=== PATIENT | female | born 1990 | race Caucasian/White ===

== ENCOUNTER 2017-07-12 04:07 | Emergency (ER) | payer OTHER ==
--- OUTSIDE RECORDS SUMMARY | 2017-07-12 04:10 | XMS REPORT | Clinical Summary ---
:1990 Author Organization [facility] Address [address] [place] [address] Phone Care Team Providers Name Role Phone Unavailable Primary Care Provider Unavailable Allergies No Known Allergies Current Medications Prescription Sig. Disp. Refills Start Date End Date Status METHIMAZOLE ORAL Take by mouth. Active PROPRANOLOL HCL Take by mouth. Active (PROPRANOLOL ORAL) ZOLPIDEM TARTRATE Take by mouth. Active (AMBIEN ORAL) cholecalciferol, Take 1,000 Active vitamin D3, 1,000 Units by mouth unit capsule daily. MAGNESIUM CARBONATE Take by mouth. Active ORAL CHLORDIAZEPOXIDE/CL Take by mouth Active IDINIUM BR 3 (three) (CHLORDIAZEPOXIDE-C times daily. LIDINIUM ORAL) sucralfate Take 1 g by Active (CARAFATE) 1 gram mouth 3 tablet (three) times daily before meals. HYDROcodone-acetami Take 1 tablet 10 tablet 0 05/18/2017 Active nophen (NORCO by mouth every 10-325) 10-325 mg 4 (four) hours per tablet as needed. Max Daily Amount: 6 tablets ondansetron Take 1 tablet 10 tablet 0 05/18/2017 Active (ZOFRAN) 4 MG (4 mg total) tablet by mouth 3 (three) times daily as needed for Nausea. traMADol (ULTRAM) Take 1 tablet 30 tablet 0 05/17/2017 05/17/2017 Discontinued 50 mg tablet (50 mg total) by mouth every 6 (six) hours as needed for Pain. Max Daily Amount: 200 mg ondansetron Take 1 tablet 30 tablet 0 05/17/2017 05/18/2017 Discontinued (ZOFRAN) 4 MG (4 mg total) tablet by mouth 3 (three) times daily as needed for Nausea. HYDROcodone-acetami Take 1 tablet 20 tablet 0 05/17/2017 05/18/2017 Discontinued nophen (NORCO by mouth every 10-325) 10-325 mg 4 (four) hours per tablet as needed for up to 10 days. Max Daily Amount: 6 tablets HYDROcodone-acetami Take 1 tablet 30 tablet 0 05/18/2017 05/18/2017 Discontinued nophen (NORCO by mouth every 10-325) 10-325 mg 4 (four) hours per tablet as needed for up to 10 days. Max Daily Amount: 6 tablets Active Problems Problem Noted Date Acute pancreatitis 05/16/2017 Pancreatitis 05/15/2017 Epigastric pain 05/15/2017 Abnormal liver enzymes 03/27/2017 Obesity 03/27/2017 Immunity status testing 03/27/2017 Chronic abdominal pain 03/27/2017 Gastritis 03/27/2017 Encounters Date Type Specialty Care Team Description 05/15/2017 - Hospital Oncology [facility], Acute pancreatitis, 05/18/2017 Encounter MD Mellissa unspecified Reji, complication Jackie Pineda, status, unspecified MD pancreatitis type;Chronic abdominal pain;Graves disease 05/15/2017 Procedure Pass Gastroenterology 05/15/[address] [facility] Mellissa ENDOSCOPY,ULTRASOUN D 05/14/2017 Hospital Pre-Admission Testing Encounter 05/14/2017 Anesthesia Event Gastroenterology Jossie Martinez MD 04/12/2017 Abstract Hepatology Julian Machado E 04/06/2017 Abstract Hepatology Merry Peña 04/06/2017 Abstract Hepatology Merry Peña 04/06/2017 Abstract Hepatology Julian Machado E 04/04/2017 Abstract Hepatology Janel Ott MA 03/27/2017 Office Visit Hepatology Josselin Hooper Abnormal liver MD Paul enzymes (Primary Dx);Immunity status testing;Chronic abdominal pain;Class 1 obesity due to excess calories without serious comorbidity with body mass index (BMI) of 30.0 to 30.9 in adult after 07/11/2016 Family History Medical History Relation Name Comments Heart attack Father Other Father Fathers side of family (great grandmother, grandmother and grandmothers twin brother of liver failure. Do not know the cause Stroke Father High blood pressure Maternal Grandmother Thyroid disease Maternal Grandmother Cancer Paternal Grandfather Liver cancer Paternal Grandfather Other Paternal Grandfather triple bypass Relation Name Status Comments Father Maternal Grandmother Paternal Grandfather Social History Tobacco Use Types Packs/Day Years Used Date Never Smoker Smokeless Tobacco: Never Used Alcohol Use Drinks/Week oz/Week Comments Yes rarely Sex Assigned at Date Recorded Not on file Last Filed Vital Signs Vital Sign Reading Time Taken Blood Pressure 110/63 05/18/2017 7:12 AM [employer] Pulse 67 05/18/2017 7:12 AM [employer] Temperature 36.3 C (97.4 F) 05/18/2017 7:12 AM [employer] Respiratory Rate 18 05/18/2017 7:12 AM [employer] Oxygen Saturation 93% 05/18/2017 7:12 AM [employer] Inhaled Oxygen Concentration - - Weight 97.1 kg (214 lb) 05/15/2017 5:50 PM [employer] Height 170.2 cm (5' 7") 05/15/2017 5:50 PM [employer] Body Mass Index 33.52 05/15/2017 5:50 PM [employer] Plan of Treatment Not on file Procedures Procedure Name Priority Date/Time Associated Diagnosis Comments ERCP,BALLOON SWEEPING 05/15/2017 3:25 PM [employer] RUQ pain Special Needs (LINEAR SCOPE, C-ARM) PROCEDURE W/ C-ARM 05/15/2017 3:25 PM [employer] RUQ pain Special Needs (LINEAR SCOPE, C-ARM) ERCP,PAPILLOTOMY 05/15/2017 3:25 PM [employer] RUQ pain Special Needs (LINEAR SCOPE, C-ARM) UPPER ENDOSCOPY,ULTRASOUND 05/15/2017 3:25 PM [employer] RUQ pain Special Needs (LINEAR SCOPE, C-ARM) after 07/11/2016 Results Lipase (05/16/2017 10:07 AM)Only the most recent of2 resultswithin the time period is included. Component Value Ref Range Lipase 16 8 - 78 U/L Specimen Performing Laboratory Blood - Arm, [address] [address] Comprehensive metabolic panel (05/16/2017 10:07 AM)Only the most recent of2 resultswithin the time period is included. Component Value Ref Range Protein, Total 6.3 6.0 - 8.3 gm/dL Albumin 3.4 (L) 3.5 - 5.0 g/dL Alkaline Phosphatase 74 40 - 150 U/L Total Bilirubin 0.6 0.2 - 1.2 mg/dL Sodium 139 136 - 145 meq/L Potassium 3.5 3.5 - 5.1 meq/L Chloride 107 98 - 107 meq/L CO2 26 22 - 29 meq/L BUN 7 7 - 21 mg/dL Creatinine 0.69 0.57 - 1.25 mg/dL Glucose 92 70 - 105 mg/dL Calcium 8.4 8.4 - 10.2 mg/dL AST 25 5 - 34 U/L ALT 44 6 - 55 U/L EGFR 101Comment: ESTIMATED GFR IS NOT ACCURATE mL/min/1.73 sq m CREATININE CLEARANCE IN PREDICTING GLOMERULAR FILTRATION RATE. ESTIMATED GFR IS NOT APPLICABLE FOR DIALYSIS PATIENTS. Specimen Performing Laboratory Blood - Arm, [address] [address] REPORT OF PROCEDURE - ENDOSCOPY URL (05/15/2017 3:43 PM)Only the most recent of2 resultswithin the time period is included.FL ERCP (05/15/2017 3:01 PM) Specimen Performing Laboratory GE RIS Narrative FINAL REPORT ERCP. CLINICAL HISTORY: BILIARY PAIN. COMPARISON STUDY: None. FINDINGS: Five fluoroscopically acquired images from an ERCP are submitted for interpretation. There has been retrograde cannulation and injection of contrast into the CBD. Cholecystectomy clips are seen. An intraoperative verbal report was not requested. Please refer to the gastroenterology notes for further discussion. Fluoroscopy was not performed by the undersigned. Fluoroscopy time: 23 seconds. Five images. Signed: Tiago Woodson MD Report Verified Date/Time:05/15/2017 15:44:29 Reading Location: [address] Radiology Reading Room Procedure Note Interface, External Ris In - 05/15/2017 3:46 PM [employer] FINAL REPORT ERCP. CLINICAL HISTORY: BILIARY PAIN. COMPARISON STUDY: None. FINDINGS: Five fluoroscopically acquired images from an ERCP are submitted for interpretation. There has been retrograde cannulation and injection of contrast into the CBD. Cholecystectomy clips are seen. An intraoperative verbal report was not requested. Please refer to the gastroenterology notes for further discussion. Fluoroscopy was not performed by the undersigned. Fluoroscopy time: 23 seconds. Five images. Signed: Tiago Woodson MD Report Verified Date/Time: 05/15/2017 15:44:29 Reading Location: [address] Radiology Reading Room , urine (05/15/2017 12:59 PM) Component Value Ref Range Test Urine, POC Negative Control line present?, POC Yes Background clear?, POC Yes UPT Cassette Lot #, POC [id number] UPT Cassette Expiration Date, POC 01/06/2019 Specimen Performing Laboratory Urine Hepatitis A Antibody, IgG ([facility] Only) (03/27/2017 4:29 PM) Component Value Ref Range Hep A IgG Nonreactive Nonreactive Specimen Performing Laboratory Blood [address] [address] CBC with platelet count + automated diff (03/27/2017 4:29 PM) Component Value Ref Range WBC 8.6 3.5 - 10.5 K/L RBC 4.39 3.93 - 5.22 M/L Hemoglobin 13.4 11.2 - 15.7 GM/DL Hematocrit 40.1 34.1 - 44.9 % MCV 91.3 79.4 - 94.8 fL MCH 30.5 25.6 - 32.2 pg MCHC 33.4 32.2 - 35.5 GM/DL RDW 12.4 11.7 - 14.4 % Platelets 314 150 - 450 K/CU MM MPV 10.3 9.4 - 12.3 fL nRBC 0 0 - 0 /100 WBC % Neutros 44 % % Lymphs 42 % % Monos 9 % % Eos 4 % % Baso 1 % # Neutros 3.73 1.56 - 6.13 K/L # Lymphs 3.57 1.18 - 3.74 K/L # Monos 0.77 (H) 0.24 - 0.36 K/L # Eos 0.32 0.04 - 0.36 K/L # Baso 0.06 0.01 - 0.08 K/L Immature Granulocytes-Relative 1 0 - 1 % Specimen Performing Laboratory Blood [address] [address] Actin (Smooth Muscle) Antibody, IgG (03/27/2017 4:29 PM) Component Value Ref Range Anti-Smooth Muscle Ab <20 See Note: U Comment: Reference Range: <20 NEGATIVE > OR=20 POSITIVE Antibodies recognizing actin are the main component of smooth muscle antibodies associated with autoimmune liver disease. Actin antibodies are found in approximately 75% of patients with autoimmune hepatitis (AIH) type 1, approximately 65% of patients with autoimmune cholangitis, approximately 30% of patients with primary biliary cirrhosis, and approximately 2% of healthy people. High values are closely correlated with AIH type 1. Specimen Performing Laboratory Blood [facility] [address] [address] Narrative Performing Lab [facility] [address] [address] Ashley Rueda MD Hepatitis B surface antibody (03/27/2017 4:29 PM) Component Value Ref Range Hep B S Ab 678.3 (H) <8.0 mIU/mL Specimen Performing Laboratory Blood [address] [address] Pro-time/INR (03/27/2017 4:29 PM) Component Value Ref Range Protime 12.2 11.7 - 14.7 seconds INR 0.9 <=5.9 Specimen Performing Laboratory Blood [address] [address] Narrative RECOMMENDED COUMADIN/WARFARIN INR THERAPY RANGES STANDARD DOSE: 2.0 - 3.0 Includes: PROPHYLAXIS for venous thrombosis, systemic embolization; TREATMENT for venous thrombosis and/or pulmonary embolus. HIGH RISK: Target INR is 2.5-3.5 for patients with mechanical heart valves. CBC with platelet count + automated diff (03/27/2017 4:29 PM) Specimen Performing Laboratory Blood Narrative The following orders were created for panel order CBC with platelet count + automated diff. Procedure Abnormality Status --------- ------ CBC with platelet count ...[[id number]]AbnormalFinal result Please view results for these tests on the individual orders. Anti-Nuclear Antibody (ARIC) (03/27/2017 4:29 PM) Component Value Ref Range ARIC Negative Negative Specimen Performing Laboratory Blood [address] [place] [address] Immunoglobulin G (IgG) (03/27/2017 4:29 PM) Component Value Ref Range IgG 1397 540 - 1822 mg/dL Specimen Performing Laboratory Blood [address] [address] Hepatic function panel (03/27/2017 4:29 PM) Component Value Ref Range Protein, Total 7.7 6.0 - 8.3 gm/dL Albumin 4.1 3.5 - 5.0 g/dL Total Bilirubin 0.3 0.2 - 1.2 mg/dL Bilirubin, Direct 0.1 0.1 - 0.5 mg/dL Alkaline Phosphatase 94 40 - 150 U/L AST 24 5 - 34 U/L ALT 43 6 - 55 U/L Specimen Performing Laboratory Blood [address] [address] Basic Metabolic Panel (03/27/2017 4:29 PM) Component Value Ref Range Sodium 138 136 - 145 meq/L Potassium 3.5 3.5 - 5.1 meq/L Chloride 105 98 - 107 meq/L CO2 25 22 - 29 meq/L BUN 13 7 - 21 mg/dL Creatinine 0.77 0.57 - 1.25 mg/dL Glucose 95 70 - 105 mg/dL Calcium 9.5 8.4 - 10.2 mg/dL EGFR 89Comment: ESTIMATED GFR IS NOT ACCURATE mL/min/1.73 sq m CREATININE CLEARANCE IN PREDICTING GLOMERULAR FILTRATION RATE. ESTIMATED GFR IS NOT APPLICABLE FOR DIALYSIS PATIENTS. Specimen Performing Laboratory Blood [address] [address] Mitochondria M2 Antibody (IgG) (03/27/2017 4:26 PM) Component Value Ref Range Mitochondria M2 Ab <20.0 See Note: U Comment: Reference Range: NEGATIVE:< OR=20.0 EQUIVOCAL: 20.1-24.9 POSITIVE:> OR=25.0 Specimen Performing Laboratory Blood [facility] [address] [address] Narrative Performing Lab [facility] [address] [address] Ashley Rueda MD after 07/11/2016
--- OUTSIDE RECORDS SUMMARY | 2017-07-12 04:10 | XMS REPORT ---
:1990 Author Organization [facility] Address [facility] [place] [address] Care Team Providers Name Role Phone IVANIATRE SKELTON Unavailable Unavailable VIDAL BURT Unavailable Unavailable Problems This patient has no known problems. Allergies, Adverse Reactions, Alerts This patient has no known allergies or adverse reactions. Medications This patient has no known medications. Results Test Description Test Time Test Comments Text Results Atomic Results Result Comments LIPASE 2017-05-16 10:51:00 Test Item Value Reference Range Comments LIPASE (BEAKER) (test sefq=970) 16 U/L 8-78 COMPREHENSIVE METABOLIC [id number] 10:51:00 Test Item Value Reference Range Comments TOTAL PROTEIN (BEAKER) 6.3 gm/dL 6.0-8.3 (test dddn=921) ALBUMIN (BEAKER) (test 3.4 g/dL 3.5-5.0 zmdc=3240) ALKALINE PHOSPHATASE 74 U/L 40-150 (BEAKER) (test yrvu=805) BILIRUBIN TOTAL (BEAKER) 0.6 mg/dL 0.2-1.2 (test dpcj=831) SODIUM (BEAKER) (test 139 meq/L 136-145 xmfo=686) POTASSIUM (BEAKER) (test 3.5 meq/L 3.5-5.1 zuot=560) CHLORIDE (BEAKER) (test 107 meq/L 98-107 bixw=377) CO2 (BEAKER) (test 26 meq/L 22-29 bzlm=888) BLOOD UREA NITROGEN 7 mg/dL 7-21 (BEAKER) (test vsgq=318) CREATININE (BEAKER) (test 0.69 mg/dL 0.57-1.25 pkst=418) GLUCOSE RANDOM (BEAKER) 92 mg/dL 70-105 (test qmul=857) CALCIUM (BEAKER) (test 8.4 mg/dL 8.4-10.2 rspg=814) AST (SGOT) (BEAKER) (test 25 U/L 5-34 enct=953) ALT (SGPT) (BEAKER) (test 44 U/L 6-55 itxg=515) EGFR (BEAKER) (test 101 mL/min/1.73 sq ESTIMATED GFR IS NOT ggwo=9044) m ACCURATE CREATININE CLEARANCE IN PREDICTING GLOMERULAR FILTRATION RATE. ESTIMATED GFR IS NOT APPLICABLE FOR DIALYSIS PATIENTS. [id number] 19:35:00 Test Item Value Reference Range Comments LIPASE (BEAKER) (test goli=220) 233 U/L 8-78 COMPREHENSIVE METABOLIC [id number] 19:35:00 Test Item Value Reference Range Comments TOTAL PROTEIN (BEAKER) 6.6 gm/dL 6.0-8.3 (test uctq=860) ALBUMIN (BEAKER) (test 3.6 g/dL 3.5-5.0 fvlu=7903) ALKALINE PHOSPHATASE 82 U/L 40-150 (BEAKER) (test oguq=231) BILIRUBIN TOTAL (BEAKER) 0.4 mg/dL 0.2-1.2 (test kmno=240) SODIUM (BEAKER) (test 136 meq/L 136-145 ujte=835) POTASSIUM (BEAKER) (test 4.0 meq/L 3.5-5.1 zesu=754) CHLORIDE (BEAKER) (test 105 meq/L 98-107 vedq=669) CO2 (BEAKER) (test 27 meq/L 22-29 uhvo=093) BLOOD UREA NITROGEN 11 mg/dL 7-21 (BEAKER) (test qzxe=422) CREATININE (BEAKER) (test 0.76 mg/dL 0.57-1.25 pxzp=952) GLUCOSE RANDOM (BEAKER) 109 mg/dL 70-105 (test mquy=564) CALCIUM (BEAKER) (test 9.0 mg/dL 8.4-10.2 ihdl=326) AST (SGOT) (BEAKER) (test 30 U/L 5-34 cfio=086) ALT (SGPT) (BEAKER) (test 47 U/L 6-55 ygrn=795) EGFR (BEAKER) (test 90 mL/min/1.73 sq m ESTIMATED GFR IS NOT pwhn=6673) ACCURATE CREATININE CLEARANCE IN PREDICTING GLOMERULAR FILTRATION RATE. ESTIMATED GFR IS NOT APPLICABLE FOR DIALYSIS PATIENTS. [place], [id number] 15:44:00Referring: Dr. Duran Thomas INTRA OP IMAGING Reason for exam:->BILIARY PAINFINAL REPORT ERCP. CLINICAL HISTORY: BILIARY PAIN. COMPARISON STUDY: None. FINDINGS: Five fluoroscopically acquired images from an ERCP are submitted for interpretation. There has been retrograde cannulation and injection of contrast into the CBD. Cholecystectomy clips are seen.An intraoperative verbal report was not requested. Please refer to the gastroenterology notes for further discussion. Fluoroscopy was not performed by the undersigned. Fluoroscopy time: 23 seconds. Five images. Signed: Tiago Woodson MDReport Verified Date/Time: 05/15/2017 15 :44:29 Reading Location:[address] Radiology Reading Room ANTI- NUCLEAR ANTIBODY (ARIC)2017-03-28 10:37:00 Test Item Value Reference Range Comments ANTI-NUCLEAR ANTIBODY (ARIC) (BEAKER) (test Negative Negative zrqi=058) HEPATITIS B SURFACE [id number] 18:33:00 Test Item Value Reference Range Comments HEPATITIS B SURFACE ANTIBODY (BEAKER) (test 678.3 mIU/mL <8.0 ibbn=927) HEPATITIS A ANTIBODY, [id number] 18:33:00 Test Item Value Reference Range Comments HEPATITIS A IGG ANTIBODY (BEAKER) (test Nonreactive Nonreactive sxae=0501) IMMUNOGLOBULIN G (IGG)2017-03-27 18:04:00 Test Item Value Reference Range Comments IMMUNOGLOBULIN G (IGG) (BEAKER) (test qofm=024) 1397 mg/dL 540-1822 HEPATIC FUNCTION [id number] 17:26:00 Test Item Value Reference Range Comments TOTAL PROTEIN (BEAKER) (test azym=930) 7.7 gm/dL 6.0-8.3 ALBUMIN (BEAKER) (test nzgc=0813) 4.1 g/dL 3.5-5.0 BILIRUBIN TOTAL (BEAKER) (test hjvm=105) 0.3 mg/dL 0.2-1.2 BILIRUBIN DIRECT (BEAKER) (test rcty=380) 0.1 mg/dL 0.1-0.5 ALKALINE PHOSPHATASE (BEAKER) (test movm=665) 94 U/L 40-150 AST (SGOT) (BEAKER) (test vfrv=089) 24 U/L 5-34 ALT (SGPT) (BEAKER) (test mnvb=577) 43 U/L 6-55 BASIC METABOLIC [id number] 17:26:00 Test Item Value Reference Range Comments SODIUM (BEAKER) (test 138 meq/L 136-145 pmjv=456) POTASSIUM (BEAKER) (test 3.5 meq/L 3.5-5.1 iulh=124) CHLORIDE (BEAKER) (test 105 meq/L 98-107 phqu=707) CO2 (BEAKER) (test 25 meq/L 22-29 phys=175) BLOOD UREA NITROGEN 13 mg/dL 7-21 (BEAKER) (test ledt=729) CREATININE (BEAKER) (test 0.77 mg/dL 0.57-1.25 ttxx=578) GLUCOSE RANDOM (BEAKER) 95 mg/dL 70-105 (test hjjg=466) CALCIUM (BEAKER) (test 9.5 mg/dL 8.4-10.2 mcxu=368) EGFR (BEAKER) (test 89 mL/min/1.73 sq m ESTIMATED GFR IS NOT mtnd=3754) ACCURATE CREATININE CLEARANCE IN PREDICTING GLOMERULAR FILTRATION RATE. ESTIMATED GFR IS NOT APPLICABLE FOR DIALYSIS PATIENTS. PROTHROMBIN [id number] 17:10:00 Test Item Value Reference Range Comments PROTIME (BEAKER) (test boxj=036) 12.2 seconds 11.7-14.7 INR (BEAKER) (test thrb=362) 0.9 <=5.9 RECOMMENDED COUMADIN/WARFARIN INR THERAPY RANGESSTANDARD DOSE: 2.0 - 3.0 Includes: PROPHYLAXIS forvenous thrombosis, systemic embolization; TREATMENT for venous thrombosis and/or pulmonary embolus.HIGH RISK: Target INR is 2.5-3.5 for patients with mechanical heart valves.CBC W/PLT COUNT & AUTO [id number] 17:01:00 Test Item Value Reference Range Comments WHITE BLOOD CELL COUNT (BEAKER) (test crjt=187) 8.6 K/ L 3.5-10.5 RED BLOOD CELL COUNT (BEAKER) (test pxmb=743) 4.39 M/ L 3.93-5.22 HEMOGLOBIN (BEAKER) (test ivty=987) 13.4 GM/DL 11.2-15.7 HEMATOCRIT (BEAKER) (test yhcj=535) 40.1 % 34.1-44.9 MEAN CORPUSCULAR VOLUME (BEAKER) (test nxak=179) 91.3 fL 79.4-94.8 MEAN CORPUSCULAR HEMOGLOBIN (BEAKER) (test 30.5 pg 25.6-32.2 tpro=384) MEAN CORPUSCULAR HEMOGLOBIN CONC (BEAKER) (test 33.4 GM/DL 32.2-35.5 zhft=861) RED CELL DISTRIBUTION WIDTH (BEAKER) (test 12.4 % 11.7-14.4 eawd=111) PLATELET COUNT (BEAKER) (test aklh=789) 314 K/CU MM 150-450 MEAN PLATELET VOLUME (BEAKER) (test vwoc=923) 10.3 fL 9.4-12.3 NUCLEATED RED BLOOD CELLS (BEAKER) (test 0 /100 WBC 0-0 zlia=178) NEUTROPHILS RELATIVE PERCENT (BEAKER) (test 44 % taeg=009) LYMPHOCYTES RELATIVE PERCENT (BEAKER) (test 42 % zboy=510) MONOCYTES RELATIVE PERCENT (BEAKER) (test 9 % grac=259) EOSINOPHILS RELATIVE PERCENT (BEAKER) (test 4 % mecn=325) BASOPHILS RELATIVE PERCENT (BEAKER) (test 1 % jslp=251) NEUTROPHILS ABSOLUTE COUNT (BEAKER) (test 3.73 K/ L 1.56-6.13 talk=887) LYMPHOCYTES ABSOLUTE COUNT (BEAKER) (test 3.57 K/ L 1.18-3.74 olqv=880) MONOCYTES ABSOLUTE COUNT (BEAKER) (test 0.77 K/ L 0.24-0.36 jsbz=926) EOSINOPHILS ABSOLUTE COUNT (BEAKER) (test 0.32 K/ L 0.04-0.36 qkxb=406) BASOPHILS ABSOLUTE COUNT (BEAKER) (test 0.06 K/ L 0.01-0.08 ihpf=127) IMMATURE GRANULOCYTES-RELATIVE PERCENT (BEAKER) 1 % 0-1 (test ygct=2948)
[2017-07-12] MEDS ORDERED: DIPHENHYDRAMINE 50 MG/ML VIAL ONE (04:45)
[2017-07-12] MEDS ORDERED: KETOROLAC 30 MG/ML INJ ONE (04:45)
[2017-07-12] MEDS ORDERED: NA CHLORIDE 0.9% 1,000 ML ONE (04:45)
[2017-07-12] MEDS ORDERED: METOCLOPRAMIDE 10 MG/2mL INJ ONE (04:45)
[2017-07-12] MEDS ORDERED: DEXAMETHASONE 10 MG/ML VIAL ONE (04:46)
--- NOTE | 2017-07-12 04:49 | ER ---
Nurse's Notes [facility] Name: Rubi Farfan Age: 27 yrs Sex: Female : 1990 Arrival Date: 07/12/2017 Time: 04:09 Bed 6 Private MD: Terry Parra B Diagnosis: Migraine Presentation: 07/12 04:23 Presenting complaint: Patient states: she is having a migraine x 3 days has not been bb able to sleep saw the neurologist yesterday at approx 1200 and was given imitrex and nerve blocks but has not gotten any relief. Transition of care: patient was not received from another setting of care. Onset of symptoms was July 09, 2017. Care prior to arrival: None. 04:23 Method Of Arrival: Ambulatory bb 04:23 Acuity: HUAN 4 bb Triage Assessment: 04:29 Headache History: The patient has had previous headaches and this one is similar to bb previous episodes. General: Appears in no apparent distress. uncomfortable, Behavior is calm, cooperative. Pain: Complains of pain in top of head Pain currently is 7 out of 10 on a pain scale. Pain began 2-3 days ago. Also complains of nausea, sleeplessness. Neuro: Level of Consciousness is awake, alert, obeys commands, Oriented to person, place, time, situation, Speech is normal, Facial symmetry appears normal. Cardiovascular: No deficits noted. Respiratory: Respiratory effort is even, unlabored. GI: Reports nausea. Derm: Skin is pink, warm \T\ dry. Musculoskeletal: Circulation, motion, and sensation intact. 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 - Social history:: Smoking status: unknown. - Family history:: not pertinent. - Hospitalizations: : No recent hospitalization is reported. Screenin:31 Abuse screen: Denies threats or abuse. Nutritional screening: No deficits noted. bb Tuberculosis screening: No symptoms or risk factors identified. Fall Risk None identified. Assessment: 04:31 Reassessment: No changes from previously documented assessment. see triage assessment. bb 04:46 Reassessment: Patient reports headache pain has decreased. Patient states feeling ea better. Patient states symptoms have improved. 04:57 Reassessment: Patient and/or family updated on plan of care and expected duration. Pain ea level reassessed. Patient is alert, oriented x 3, equal unlabored respirations, skin warm/dry/pink. Discharge instructions given to patient, verbalized the understanding of instruction. Awaiting for IV fluids to complete. Patient states feeling better. Patient states symptoms have improved. Vital Signs: 04:29 BP 136 / 98; Pulse 85; Resp 18 S; Temp 97.8(O); Pulse Ox 100% on R/A; Weight 86.18 kg bb (R); Height 5 ft. 7 in. (170.18 cm) (R); Pain 7/10; 04:29 Body Mass Index 29.76 (86.18 kg, 170.18 cm) bb [place] Coma Score: 04:48 Eye Response: spontaneous(4). Verbal Response: oriented(5). Motor Response: obeys rn commands(6). Total: 15. ED Course: 04:09 Patient arrived in ED. am2 04:09 Terry Parra MD is Private Physician. am2 04:16 Jonathan Fuentes MD is Attending Physician. rn 04:22 Evelin Kumar RN is Primary Nurse. bb 04:24 Triage completed. bb 04:29 Arm band placed on Patient placed in an exam room, on a stretcher, on pulse oximetry. bb 04:30 Inserted saline lock: 20 gauge in right antecubital area, using aseptic technique. oe 04:31 Patient has correct armband on for positive identification. Bed in low position. Call bb light in reach. Side rails up X 1. Pulse ox on. NIBP on. 04:58 No provider procedures requiring assistance completed. ea 05:08 IV discontinued, intact, bleeding controlled, No redness/swelling at site. Pressure ea dressing applied. Administered Medications: 04:25 Drug: NS 0.9% 1000 ml Route: IV; Rate: 1000 ml; Site: right antecubital; ea 05:05 Follow up: Response: No adverse reaction; IV Status: Completed infusion ea 04:26 Drug: Decadron - Dexamethasone 10 mg Route: IVP; Site: right antecubital; ea 04:45 Follow up: Response: No adverse reaction; Marked relief of symptoms ea 04:28 Drug: TORadol 30 mg Route: IVP; Site: right antecubital; ea 04:45 Follow up: Response: No adverse reaction; Marked relief of symptoms; Pain is decreased ea 04:36 Drug: Reglan 10 mg Route: IVP; Site: right antecubital; ea 04:45 Follow up: Response: No adverse reaction; Marked relief of symptoms ea 04:37 Drug: Benadryl 25 mg Route: IVP; Site: right antecubital; ea 04:45 Follow up: Response: No adverse reaction; Marked relief of symptoms ea Outcome: 04:49 Discharge ordered by MD. rn 04:59 Discharge instructions given to patient, Instructed on discharge instructions, follow ea up and referral plans. Demonstrated understanding of instructions, follow-up care. 05:09 Discharged to home ambulatory. ea 05:09 Condition: improved 05:09 Patient left the ED. ea Signatures: Evelin Kumar RN RN bb Nieto, Roman, MD MD rn Espinosa, Orlando oe Moreno, Amanda am2 Antunez, Elena, RN RN ea Corrections: (The following items were deleted from the chart) 05:03 04:57 Reassessment: Patient and/or family updated on plan of care and expected ea duration. Pain level reassessed. Patient is alert, oriented x 3, equal unlabored respirations, skin warm/dry/pink. Discharge instructions given to patient, verbalized the understanding of instruction Patient states feeling better. Patient states symptoms have improved. ea
--- NOTE | 2017-07-12 04:49 | EDPHYS ---
Physician Documentation [facility] Name: Rubi Farfan Age: 27 yrs Sex: Female : 1990 Arrival Date: 07/12/2017 Time: 04:09 Bed 6 Private MD: Terry Parra B ED Physician Jonathan Fuentes HPI: 07/12 04:22 This 27 yrs old Female presents to ER via Unassigned with complaints of rn Headache. 04:22 The patient complains of pain to the top of head. The patient describes the headache as rn aching. Onset: The symptoms/episode began/occurred 3 day(s) ago. Associated signs and symptoms: Pertinent positives: nausea, Photophobia Pertinent negatives: fever, neck stiffness, rash, vision changes, vision loss, weakness, vertigo. Severity of symptoms: At its worst the pain was moderate, "similar to past headaches". The patient has experienced similar episodes in the past. Reports hx of migraines, this migraine typical of her other migraines, states got nerve block and imitrex by her neurologist yesterday, not helping, not , has essure device. No fever. . 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 - Social history:: Smoking status: unknown. - Family history:: not pertinent. - Hospitalizations: : No recent hospitalization is reported. ROS: 04:22 Constitutional: Negative for fever, chills, and weight loss, Eyes: Negative for injury, rn pain, redness, and discharge, Cardiovascular: Negative for chest pain, palpitations, and edema, Respiratory: Negative for shortness of breath, cough, wheezing, and pleuritic chest pain, Abdomen/GI: Negative for abdominal pain, diarrhea, and constipation, MS/Extremity: Negative for injury and deformity, Skin: Negative for injury, rash, and discoloration, Neuro: Negative for weakness, numbness, tingling, and seizure. Exam: 04:22 Constitutional: This is a well developed, well nourished patient who is awake, alert, rn and in no acute distress. Head/Face: Normocephalic, atraumatic. Eyes: Pupils equal round and reactive to light, extra-ocular motions intact. Lids and lashes normal. Conjunctiva and sclera are non-icteric and not injected. Cornea within normal limits. Periorbital areas with no swelling, redness, or edema. Neck: Trachea midline, no thyromegaly or masses palpated, and no cervical lymphadenopathy. Supple, full range of motion without nuchal rigidity, or vertebral point tenderness. No Meningismus. Skin: Warm, dry, no evidence of cellulitis. MS/ Extremity: Pulses equal, no cyanosis. Neurovascular intact. Full, normal range of motion. Equal circumference. Neuro: Awake and alert, GCS 15, oriented to person, place, time, and situation. Cranial nerves II-XII grossly intact. Motor strength 5/5 in all extremities. Sensory grossly intact. Cerebellar exam normal. Normal gait. Vital Signs: 04:29 BP 136 / 98; Pulse 85; Resp 18 S; Temp 97.8(O); Pulse Ox 100% on R/A; Weight 86.18 kg bb (R); Height 5 ft. 7 in. (170.18 cm) (R); Pain 7/10; 04:29 Body Mass Index 29.76 (86.18 kg, 170.18 cm) bb [place] Coma Score: 04:48 Eye Response: spontaneous(4). Verbal Response: oriented(5). Motor Response: obeys rn commands(6). Total: 15. MDM: 04:16 Patient medically screened. rn 04:24 ED course: Pt states doesn't have ride home. rn 04:48 Differential diagnosis: hypertensive headache, migraine, tension headache. Data rn reviewed: vital signs, nurses notes, and as a result, I will discharge patient. Counseling: I had a detailed discussion with the patient and/or guardian regarding: the historical points, exam findings, and any diagnostic results supporting the discharge/admit diagnosis, the need for outpatient follow up, to return to the emergency department if symptoms worsen or persist or if there are any questions or concerns that arise at home. Special discussion: I discussed with the patient/guardian in detail that at this point there is no indication for admission to the hospital. It is understood, however, that if the symptoms persist or worsen the patient needs to return immediately for re-evaluation. 07/12 04:21 Order name: IV Start; Complete Time: 04:39 rn Administered Medications: 04:25 Drug: NS 0.9% 1000 ml Route: IV; Rate: 1000 ml; Site: right antecubital; ea 05:05 Follow up: Response: No adverse reaction; IV Status: Completed infusion ea 04:26 Drug: Decadron - Dexamethasone 10 mg Route: IVP; Site: right antecubital; ea 04:45 Follow up: Response: No adverse reaction; Marked relief of symptoms ea 04:28 Drug: TORadol 30 mg Route: IVP; Site: right antecubital; ea 04:45 Follow up: Response: No adverse reaction; Marked relief of symptoms; Pain is decreased ea 04:36 Drug: Reglan 10 mg Route: IVP; Site: right antecubital; ea 04:45 Follow up: Response: No adverse reaction; Marked relief of symptoms ea 04:37 Drug: Benadryl 25 mg Route: IVP; Site: right antecubital; ea 04:45 Follow up: Response: No adverse reaction; Marked relief of symptoms ea Disposition: 07/12/17 04:49 Discharged to Home. Impression: Migraine. - Condition is Stable. - Discharge Instructions: Migraine Headache. - Medication Reconciliation Form, Thank You Letter, Antibiotic Education, Prescription Opioid Use form. - Follow up: Private Physician; When: As needed; Reason: Recheck today's complaints, Re-evaluation by your physician. - Problem is an ongoing problem. - Symptoms have improved. Signatures: Evelin Kumar RN RN bb Nieto, Roman, MD MD rn Antunez, Elena, RN RN ea
[2017-07-12 05:31] VITALS: BP 136/98; TEMP 97.8; O2SAT 100
== END 2017-07-12 05:09 | disposition home or self-care (01) ==
LOC: ER 04:07
DX: G43.909 Migraine, unspecified, not intractable, without status migrainosus (principal); I10 Essential (primary) hypertension; E05.90 Thyrotoxicosis, unspecified without thyrotoxic crisis or storm
CPT/HCPCS: 96361; 96374; 96375; 99283; J1100; J2765; J7030

== ENCOUNTER 2018-01-14 10:57 | Inpatient (IN) | payer OTHER ==
--- OUTSIDE RECORDS SUMMARY | 2018-01-14 11:00 | XMS REPORT | Clinical Summary ---
:1990 Author Organization [facility] Address [address] [place] [address] Phone Care Team Providers Name Role Phone [...] Care Team Description 05/15/2017 - Hospital Oncology Mellissa Calix Acute pancreatitis, 05/18/2017 Encounter Fifi Burton MD unspecified Reji, complication Jackie Pineda, status, unspecified MD pancreatitis type;Chronic abdominal pain;Graves disease 05/15/2017 Procedure Pass Gastroenterology 05/15/2017 Surgery Gastroenterology Mellissa Calix UPPER Fifi Burton MD ENDOSCOPY,ULTRASOUN D 05/14/2017 Hospital Pre-Admission Testing Encounter [...] of 30.0 to 30.9 in adult after 01/13/2017 Family History Medical History Relation Name Comments [...] Taken Blood Pressure 110/63 05/18/2017 7:12 AM VICE PRESIDENT QUALITY Pulse 67 05/18/2017 7:12 AM VICE PRESIDENT QUALITY Temperature 36.3 C (97.4 F) 05/18/2017 7:12 AM VICE PRESIDENT QUALITY Respiratory Rate 18 05/18/2017 7:12 AM VICE PRESIDENT QUALITY Oxygen Saturation 93% 05/18/2017 7:12 AM VICE PRESIDENT QUALITY Inhaled Oxygen Concentration - - Weight 97.1 kg (214 lb) 05/15/2017 5:50 PM VICE PRESIDENT QUALITY Height 170.2 cm (5' 7") 05/15/2017 5:50 PM VICE PRESIDENT QUALITY Body Mass Index 33.52 05/15/2017 5:50 PM VICE PRESIDENT QUALITY Plan of Treatment Not on file Procedures Procedure Name Priority Date/Time Associated Diagnosis Comments ERCP,BALLOON SWEEPING 05/15/2017 3:25 PM VICE PRESIDENT QUALITY RUQ pain Special Needs (LINEAR SCOPE, C-ARM) PROCEDURE W/ C-ARM 05/15/2017 3:25 PM VICE PRESIDENT QUALITY RUQ pain Special Needs (LINEAR SCOPE, C-ARM) ERCP,PAPILLOTOMY 05/15/2017 3:25 PM VICE PRESIDENT QUALITY RUQ pain Special Needs (LINEAR SCOPE, C-ARM) UPPER ENDOSCOPY,ULTRASOUND 05/15/2017 3:25 PM VICE PRESIDENT QUALITY RUQ pain Special Needs (LINEAR SCOPE, C-ARM) after 01/13/2017 Results Lipase (05/16/2017 10:07 AM)Only the most recent of2 resultswithin the time period is included. Component Value Ref Range Lipase 16 8 - 78 U/L Specimen Performing Laboratory Blood - Arm, [address] [address] Comprehensive metabolic panel (05/16/2017 10:07 AM)Only the [...] PATIENTS. Specimen Performing Laboratory Blood - Arm, [place] [address] REPORT OF PROCEDURE - ENDOSCOPY URL (05/15/2017 [...] MD Report Verified Date/Time:05/15/2017 15:44:29 Reading Location: [address] Radiology Reading Room Procedure Note Interface, External Ris In - 05/15/2017 3:46 PM VICE PRESIDENT QUALITY FINAL REPORT ERCP. CLINICAL HISTORY: BILIARY PAIN. [...] Report Verified Date/Time: 05/15/2017 15:44:29 Reading Location: [address] Radiology Reading Room , urine (05/15/2017 12:59 PM) Component Value Ref Range Test Urine, POC Negative Control line present?, POC Yes Background clear?, POC Yes UPT Cassette Lot #, POC [id number] UPT Cassette Expiration Date, POC 01/06/2019 Specimen Performing Laboratory Urine Hepatitis A Antibody, IgG ([facility] Only) (03/27/2017 4:29 PM) Component Value Ref Range Hep A IgG Nonreactive Nonreactive Specimen Performing Laboratory Blood [address] [address] CBC with platelet count + automated diff [...] - 1 % Specimen Performing Laboratory Blood [address] [address] Actin (Smooth Muscle) Antibody, IgG (03/27/2017 4:29 [...] Specimen Performing Laboratory Blood [facility] [address] [address] Narrative Performing Lab [facility] [address] [address] Ashley Rueda MD Hepatitis B surface antibody (03/27/2017 4:29 PM) Component Value Ref Range Hep B S Ab 678.3 (H) <8.0 mIU/mL Specimen Performing Laboratory Blood [address] [address] Pro-time/INR (03/27/2017 4:29 PM) Component Value Ref Range Protime 12.2 11.7 - 14.7 seconds INR 0.9 <=5.9 Specimen Performing Laboratory Blood [address] [address] Narrative RECOMMENDED COUMADIN/WARFARIN INR THERAPY RANGES STANDARD [...] Status --------- ------ CBC with platelet count ...[[id number]]AbnormalFinal result Please view results for these tests on the individual orders. Anti-Nuclear Antibody (ARIC) (03/27/2017 4:29 PM) Component Value Ref Range ARIC Negative Negative Specimen Performing Laboratory Blood [address] [address] Immunoglobulin G (IgG) (03/27/2017 4:29 PM) Component Value Ref Range IgG 1397 540 - 1822 mg/dL Specimen Performing Laboratory Blood [address] [address] Hepatic function panel (03/27/2017 4:29 PM) Component Value Ref Range Protein, Total 7.7 6.0 - 8.3 gm/dL Albumin 4.1 3.5 - 5.0 g/dL Total Bilirubin 0.3 0.2 - 1.2 mg/dL Bilirubin, Direct 0.1 0.1 - 0.5 mg/dL Alkaline Phosphatase 94 40 - 150 U/L AST 24 5 - 34 U/L ALT 43 6 - 55 U/L Specimen Performing Laboratory Blood [address] [address] Basic Metabolic Panel (03/27/2017 4:29 PM) Component [...] FOR DIALYSIS PATIENTS. Specimen Performing Laboratory Blood [address] [address] Mitochondria M2 Antibody (IgG) (03/27/2017 4:26 PM) Component Value Ref Range Mitochondria M2 Ab <20.0 See Note: U Comment: Reference Range: NEGATIVE:< OR=20.0 EQUIVOCAL: 20.1-24.9 POSITIVE:> OR=25.0 Specimen Performing Laboratory Blood [facility] [address] [address] Narrative Performing Lab [facility] [address] [address] Ashley Rueda MD after 01/13/2017
--- OUTSIDE RECORDS SUMMARY | 2018-01-14 11:00 | XMS REPORT ---
:1990 [facility] Address [facility] [place] [address] Care Team Providers Name Role Phone IVANIATRE SKELTON Unavailable Unavailable TASHIA BURT Unavailable Unavailable Problems This patient has no known problems. Allergies, Adverse Reactions, Alerts This patient has no known allergies or adverse reactions. Medications This patient has no known medications. Results Test Description Test Time Test Comments Text Results Atomic Results Result Comments LIPASE 2017-05-16 10:51:00 Test Item Value Reference Range Comments LIPASE (BEAKER) (test xkok=996) 16 U/L 8-78 COMPREHENSIVE METABOLIC [id number] 10:51:00 Test Item Value Reference Range Comments TOTAL PROTEIN (BEAKER) 6.3 gm/dL 6.0-8.3 (test dwvq=291) ALBUMIN (BEAKER) (test 3.4 g/dL 3.5-5.0 ioik=3874) ALKALINE PHOSPHATASE 74 U/L 40-150 (BEAKER) (test opnt=511) BILIRUBIN TOTAL (BEAKER) 0.6 mg/dL 0.2-1.2 (test uhjd=927) SODIUM (BEAKER) (test 139 meq/L 136-145 nrkc=195) POTASSIUM (BEAKER) (test 3.5 meq/L 3.5-5.1 pral=867) CHLORIDE (BEAKER) (test 107 meq/L 98-107 txwr=427) CO2 (BEAKER) (test 26 meq/L 22-29 cylp=705) BLOOD UREA NITROGEN 7 mg/dL 7-21 (BEAKER) (test jhgl=461) CREATININE (BEAKER) (test 0.69 mg/dL 0.57-1.25 geuw=712) GLUCOSE RANDOM (BEAKER) 92 mg/dL 70-105 (test qbed=924) CALCIUM (BEAKER) (test 8.4 mg/dL 8.4-10.2 iedd=742) AST (SGOT) (BEAKER) (test 25 U/L 5-34 ziix=794) ALT (SGPT) (BEAKER) (test 44 U/L 6-55 kczn=998) EGFR (BEAKER) (test 101 mL/min/1.73 sq ESTIMATED GFR IS NOT ccbs=0721) m ACCURATE CREATININE CLEARANCE IN PREDICTING GLOMERULAR FILTRATION RATE. ESTIMATED GFR IS NOT APPLICABLE FOR DIALYSIS PATIENTS. [id number] 19:35:00 Test Item Value Reference Range Comments LIPASE (BEAKER) (test wydk=288) 233 U/L 8-78 COMPREHENSIVE METABOLIC [id number] 19:35:00 Test Item Value Reference Range Comments TOTAL PROTEIN (BEAKER) 6.6 gm/dL 6.0-8.3 (test qpml=338) ALBUMIN (BEAKER) (test 3.6 g/dL 3.5-5.0 riyw=0229) ALKALINE PHOSPHATASE 82 U/L 40-150 (BEAKER) (test cjcg=714) BILIRUBIN TOTAL (BEAKER) 0.4 mg/dL 0.2-1.2 (test dbnv=794) SODIUM (BEAKER) (test 136 meq/L 136-145 htmp=542) POTASSIUM (BEAKER) (test 4.0 meq/L 3.5-5.1 jmxx=274) CHLORIDE (BEAKER) (test 105 meq/L 98-107 nhjb=369) CO2 (BEAKER) (test 27 meq/L 22-29 ljwy=023) BLOOD UREA NITROGEN 11 mg/dL 7-21 (BEAKER) (test jnjj=342) CREATININE (BEAKER) (test 0.76 mg/dL 0.57-1.25 rqam=611) GLUCOSE RANDOM (BEAKER) 109 mg/dL 70-105 (test oyqe=377) CALCIUM (BEAKER) (test 9.0 mg/dL 8.4-10.2 hqnh=615) AST (SGOT) (BEAKER) (test 30 U/L 5-34 lnxy=130) ALT (SGPT) (BEAKER) (test 47 U/L 6-55 rmcj=871) EGFR (BEAKER) (test 90 mL/min/1.73 sq m ESTIMATED GFR IS NOT eydm=9622) ACCURATE CREATININE CLEARANCE IN PREDICTING GLOMERULAR FILTRATION RATE. ESTIMATED GFR IS NOT APPLICABLE FOR DIALYSIS PATIENTS. MI, [id number] 15:44:00Referring: Dr. Duran Thomas INTRA OP IMAGING [...] MDReport Verified Date/Time: 05/15/2017 15 :44:29 Reading Location:[address] Radiology Reading Room ANTI- NUCLEAR ANTIBODY (ARIC)2017-03-28 10:37:00 Test Item Value Reference Range Comments ANTI-NUCLEAR ANTIBODY (ARIC) (BEAKER) (test Negative Negative qscb=123) HEPATITIS B SURFACE [id number] 18:33:00 Test Item Value Reference Range Comments HEPATITIS B SURFACE ANTIBODY (BEAKER) (test 678.3 mIU/mL <8.0 cjte=764) HEPATITIS A ANTIBODY, [id number] 18:33:00 Test Item Value Reference Range Comments HEPATITIS A IGG ANTIBODY (BEAKER) (test Nonreactive Nonreactive aawn=3050) IMMUNOGLOBULIN G (IGG)2017-03-27 18:04:00 Test Item Value Reference Range Comments IMMUNOGLOBULIN G (IGG) (BEAKER) (test agmf=397) 1397 mg/dL 540-1822 HEPATIC FUNCTION [id number] 17:26:00 Test Item Value Reference Range Comments TOTAL PROTEIN (BEAKER) (test vkxv=098) 7.7 gm/dL 6.0-8.3 ALBUMIN (BEAKER) (test ceuf=4950) 4.1 g/dL 3.5-5.0 BILIRUBIN TOTAL (BEAKER) (test fdwl=999) 0.3 mg/dL 0.2-1.2 BILIRUBIN DIRECT (BEAKER) (test ijcd=656) 0.1 mg/dL 0.1-0.5 ALKALINE PHOSPHATASE (BEAKER) (test csht=816) 94 U/L 40-150 AST (SGOT) (BEAKER) (test uhyh=578) 24 U/L 5-34 ALT (SGPT) (BEAKER) (test pmqr=694) 43 U/L 6-55 BASIC METABOLIC [id number] 17:26:00 Test Item Value Reference Range Comments SODIUM (BEAKER) (test 138 meq/L 136-145 vril=370) POTASSIUM (BEAKER) (test 3.5 meq/L 3.5-5.1 phyd=951) CHLORIDE (BEAKER) (test 105 meq/L 98-107 sdds=772) CO2 (BEAKER) (test 25 meq/L 22-29 stzl=246) BLOOD UREA NITROGEN 13 mg/dL 7-21 (BEAKER) (test xhls=145) CREATININE (BEAKER) (test 0.77 mg/dL 0.57-1.25 vsfb=409) GLUCOSE RANDOM (BEAKER) 95 mg/dL 70-105 (test ddhn=302) CALCIUM (BEAKER) (test 9.5 mg/dL 8.4-10.2 naai=630) EGFR (BEAKER) (test 89 mL/min/1.73 sq m ESTIMATED GFR IS NOT jmcu=5134) ACCURATE CREATININE CLEARANCE IN PREDICTING GLOMERULAR FILTRATION RATE. ESTIMATED GFR IS NOT APPLICABLE FOR DIALYSIS PATIENTS. PROTHROMBIN TIME/[id number] 17:10:00 Test Item Value Reference Range Comments PROTIME (BEAKER) (test ssfk=731) 12.2 seconds 11.7-14.7 INR (BEAKER) (test bigh=387) 0.9 <=5.9 RECOMMENDED COUMADIN/WARFARIN INR THERAPY RANGESSTANDARD DOSE: 2.0 - 3.0 Includes: PROPHYLAXIS forvenous thrombosis, systemic embolization; TREATMENT for venous thrombosis and/or pulmonary embolus.HIGH RISK: Target INR is 2.5-3.5 for patients with mechanical heart valves.CBC W/PLT COUNT & AUTO [id number] 17:01:00 Test Item Value Reference Range Comments WHITE BLOOD CELL COUNT (BEAKER) (test ajeh=326) 8.6 K/ L 3.5-10.5 RED BLOOD CELL COUNT (BEAKER) (test pjja=415) 4.39 M/ L 3.93-5.22 HEMOGLOBIN (BEAKER) (test jmdb=927) 13.4 GM/DL 11.2-15.7 HEMATOCRIT (BEAKER) (test qgru=042) 40.1 % 34.1-44.9 MEAN CORPUSCULAR VOLUME (BEAKER) (test mogj=189) 91.3 fL 79.4-94.8 MEAN CORPUSCULAR HEMOGLOBIN (BEAKER) (test 30.5 pg 25.6-32.2 zobk=082) MEAN CORPUSCULAR HEMOGLOBIN CONC (BEAKER) (test 33.4 GM/DL 32.2-35.5 dmbb=932) RED CELL DISTRIBUTION WIDTH (BEAKER) (test 12.4 % 11.7-14.4 awve=722) PLATELET COUNT (BEAKER) (test izrn=301) 314 K/CU MM 150-450 MEAN PLATELET VOLUME (BEAKER) (test qyut=384) 10.3 fL 9.4-12.3 NUCLEATED RED BLOOD CELLS (BEAKER) (test 0 /100 WBC 0-0 lanz=581) NEUTROPHILS RELATIVE PERCENT (BEAKER) (test 44 % efjp=955) LYMPHOCYTES RELATIVE PERCENT (BEAKER) (test 42 % mhso=855) MONOCYTES RELATIVE PERCENT (BEAKER) (test 9 % sbjc=859) EOSINOPHILS RELATIVE PERCENT (BEAKER) (test 4 % jwru=338) BASOPHILS RELATIVE PERCENT (BEAKER) (test 1 % yshr=635) NEUTROPHILS ABSOLUTE COUNT (BEAKER) (test 3.73 K/ L 1.56-6.13 daio=212) LYMPHOCYTES ABSOLUTE COUNT (BEAKER) (test 3.57 K/ L 1.18-3.74 zvfg=991) MONOCYTES ABSOLUTE COUNT (BEAKER) (test 0.77 K/ L 0.24-0.36 lgwv=264) EOSINOPHILS ABSOLUTE COUNT (BEAKER) (test 0.32 K/ L 0.04-0.36 gmdu=586) BASOPHILS ABSOLUTE COUNT (BEAKER) (test 0.06 K/ L 0.01-0.08 gkgf=188) IMMATURE GRANULOCYTES-RELATIVE PERCENT (BEAKER) 1 % 0-1 (test vxht=1015)
[2018-01-14] MEDS ORDERED: NA CHLORIDE 0.9% 1,000 ML ONE (11:27)
[2018-01-14 11:47] LABS: Absolute Monocytes 0.8 K/uL (0.1-1.3); Absolute Neutrophil 2.6 K/uL (1.8-8.0); Basophils % 0.5 % (0-1.3); Eosinophils % 4.1 % (0-4.4); Hematocrit 39.7 % (36.0-45.0); Lymphocytes % 34.7 % (15.3-44.8); MCH 30.9 pg (27.0-35.0); MCV 86.9 fL (80-100); MPV 8.7 fL (7.6-11.3); RBC Red Blood Cell Count 4.57 M/uL (3.86-4.86)
[2018-01-14 12:03] LABS: ALT/SGPT 77 U/L (12-78); AST/SGOT 26 U/L (15-37); Albumin 3.4 g/dL (3.4-5.0); Alkaline Phosphatase 97 U/L (45-117); BUN Blood Urea Nitrogen 12 mg/dL (7-18); Bicarbonate 26 mmol/L (21-32); Bilirubin Total 0.6 mg/dL (0.2-1.0); Glucose Level 103 mg/dL (74-106); Potassium 3.9 mmol/L (3.5-5.1); Protein, Total 7.4 g/dL (6.4-8.2); Sodium Level 141 mmol/L (136-145); T3 Free 15.04 pg/mL (2.18-3.98); Thyroid Stimulating Hormone < 0.005 uIU/mL (0.360-3.740)
--- NOTE | 2018-01-14 12:12 | ER ---
Nurse's Notes [facility] Name: Rubi Farfan Age: 27 yrs Sex: Female : 1990 Arrival Date: 01/14/2018 Time: 11:02 Bed 6 Private MD: Terry Parra B Diagnosis: Thyrotoxicosis [hyperthyroidism] Presentation: 01/14 11:06 Presenting complaint: Patient states: palpitations that began this morning. Pt states aa5 "my heart rate was 140 when I checked it and I took propanolol around 8 am". Pt states "I had a thyroid ablation about 3 weeks ago". Transition of care: patient was not received from another setting of care. Onset of symptoms was January 2018. Risk Assessment: Do you want to hurt yourself or someone else? Patient reports no desire to harm self or others. Initial Sepsis Screen: Does the patient meet any 2 criteria? No. Patient's initial sepsis screen is negative. Does the patient have a suspected source of infection? No. Patient's initial sepsis screen is negative. Care prior to arrival: None. 11:06 Method Of Arrival: Ambulatory aa5 11:06 Acuity: HUAN 3 aa5 Triage Assessment: 11:17 General: Appears in no apparent distress. uncomfortable, Behavior is calm, cooperative, hj appropriate for age. Pain: Denies pain. 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 aa5 Historical: - Allergies: 11:08 NKA; aa5 - Home Meds: 11:18 magnesium oxide 500 mg Oral tab [Active]; methimazole 5 mg Oral tab once daily hj [Active]; Vitamin D Oral [Active]; 11:18 gabapentin 800 mg oral tab 1 tab daily [Active]; propranolol 20 mg oral tab 1 tab 3 hj times per day [Active]; Ambien 10 mg Oral tab 1 tab once daily [Active]; - PMHx: 11:08 autoimmune hepititis; gastritis; graves disease; Hypertension; hyperthyroidism; Kidney aa5 stones; Migraines; - PSHx: 11:08 ; Cholecystectomy; Lithotripsy; sphincter of oddi surgery; aa5 - Immunization history:: Adult Immunizations up to date. - Social history:: Smoking status: Patient/guardian denies using tobacco. - Ebola Screening: : No symptoms or risks identified at this time. Screenin:11 Abuse screen: Denies threats or abuse. Denies injuries from another. Nutritional hj screening: No deficits noted. Tuberculosis screening: No symptoms or risk factors identified. Fall Risk None identified. Assessment: 11:10 General: Appears in no apparent distress. uncomfortable, Behavior is calm, cooperative, hj appropriate for age. Pain: Denies pain. Neuro: Level of Consciousness is awake, alert, obeys commands, Oriented to person, place, time, situation, Appropriate for age. Cardiovascular: Capillary refill < 3 seconds Patient's skin is warm and dry. Cardiovascular: Reports palpitations, Heart tones S1 S2 present Rhythm is sinus tachycardia. Respiratory: Airway is patent Respiratory effort is even, unlabored, Respiratory pattern is regular, symmetrical. GI: No signs and/or symptoms were reported involving the gastrointestinal system. : No signs and/or symptoms were reported regarding the genitourinary system. EENT: No signs and/or symptoms were reported regarding the EENT system. Derm: No signs and/or symptoms reported regarding the dermatologic system. Musculoskeletal: No signs and/or symptoms reported regarding the musculoskeletal system. 11:58 Reassessment: Patient and/or family updated on plan of care and expected duration. Pain hj level reassessed. Patient is alert, oriented x 3, equal unlabored respirations, skin warm/dry/pink. awaiting results and POC;. 12:15 Reassessment: Patient and/or family updated on plan of care and expected duration. Pain hj level reassessed. Patient is alert, oriented x 3, equal unlabored respirations, skin warm/dry/pink. whenever pt walks to and from the bathroom to room; pt HR increases to 140's; MD aware; with orders;. 13:49 Reassessment: pt's HR increases to 130's when ever she ambulates to hallway; MD gutierrez notified;. 15:05 Reassessment: Patient and/or family updated on plan of care and expected duration. Pain hj level reassessed. Patient is alert, oriented x 3, equal unlabored respirations, skin warm/dry/pink. for admit; awaiting room placement;. 16:30 Reassessment: Patient and/or family updated on plan of care and expected duration. Pain hj level reassessed. Patient is alert, oriented x 3, equal unlabored respirations, skin warm/dry/pink. to room 221;. Vital Signs: 11:08 BP 158 / 109; Pulse 130; Resp 20 S; Temp 98.7(O); Pulse Ox 100% on R/A; Weight 81.65 kg hj (R); Height 5 ft. 7 in. (170.18 cm) (R); Pain 0/10; 11:58 BP 122 / 58; Pulse 116; Resp 18; Pulse Ox 100% on R/A; hj 12:25 BP 138 / 80; Pulse 138; Resp 18; Pulse Ox 100% on R/A; hj 13:30 BP 116 / 59; Pulse 135; Resp 18; Pulse Ox 100% on R/A; hj 13:50 BP 118 / 60; Pulse 107; Resp 18; Pulse Ox 99% on R/A; hj 14:36 BP 119 / 65; Pulse 110; Resp 18; Pulse Ox 99% on R/A; hj 15:05 BP 120 / 66; Pulse 111; Resp 18; Pulse Ox 100% on R/A; hj 16:30 BP 122 / 68; Pulse 107; Resp 18; Pulse Ox 99% on R/A; hj 11:08 Body Mass Index 28.19 (81.65 kg, 170.18 cm) hj 12:25 on standing and walking to the bathroom; hj ED Course: 11:02 Patient arrived in ED. mr 11:02 Terry Parra MD is Private Physician. mr 11:07 Triage completed. aa5 11:07 Arm band placed on. aa5 11:10 Babar Salgado MD is Attending Physician. gs 11:10 James Sigala RN is Primary Nurse. hj 11:17 Patient has correct armband on for positive identification. Placed in gown. Bed in low hj position. Call light in reach. Side rails up X 1. 11:25 Initial lab(s) drawn, by me, sent to lab. Inserted saline lock: 22 gauge in right hj antecubital area, using aseptic technique. Blood collected. 11:38 EKG done, by cardio tech. reviewed by Babar Salgado MD. sm3 14:43 Justin Evans MD is Hospitalizing Provider. gs 16:17 No provider procedures requiring assistance completed. Patient admitted, IV remains in hj place. intact. Administered Medications: 11:25 Drug: NS 0.9% 1000 ml Route: IV; Rate: 1 bolus; Site: right antecubital; hj 12:36 Follow up: IV Status: Completed infusion hj 12:25 Drug: NS 0.9% 500 ml Route: IV; Rate: bolus; Site: right antecubital; hj 12:36 Follow up: IV Status: Completed infusion hj 15:06 Follow up: IV Status: Completed infusion; IV Intake: 500ml 12:46 Drug: Propranolol 10 mg Route: PO; hj 15:06 Follow up: Response: No adverse reaction hj Intake: 15:06 IV: 500ml; Total: 500ml. Outcome: 12:11 Discharge ordered by . 14:45 Decision to Hospitalize by Provider. 16:17 Admitted to Med/surg accompanied by tech, via wheelchair, room 221, with chart, Report hj called to YULIA Russ 16:17 Condition: stable 16:17 Instructed on the need for admit, Demonstrated understanding of instructions. 16:33 Patient left the ED. Signatures: Glo Kent Sherly Riddle RN RN aa5 James Sigala RN RN hj Starr, Gregory, MD MD gs Montes, Shakira 3 Corrections: (The following items were deleted from the chart) 12:03 11:08 BP 158 / 109; Pulse 130bpm; Resp 20bpm; Spontaneous; Pulse Ox 100% RA; Temp 98.7F hj Oral; 81.65 kg Reported; Height 5 ft. 7 in. Reported; BMI: 28.1; Pain 0/10; aa5 12:03 11:58 BP 129 / 92; Pulse 116bpm; Resp 18bpm; Pulse Ox 100% RA; hj 16:01 11:18 Home Meds: gabapentin 300 mg Oral cap 1 cap daily; [facility] 16:01 11:18 Home Meds: propranolol 40 mg Oral tab; [facility]
--- NOTE | 2018-01-14 12:12 | EDPHYS ---
Physician Documentation [facility] Name: Rubi Farfan Age: 27 yrs Sex: Female : 1990 Arrival Date: 01/14/2018 Time: 11:02 Bed 6 Private MD: Terry Parra B ED Physician Babar Salgado HPI: 01/14 12:07 This 27 yrs old Female presents to ER via Ambulatory with complaints of high gs pulse. 12:07 The patient presents with a history of heart racing. Onset: The symptoms/episode gs began/occurred 3 day(s) ago. Duration: The patient or guardian reports a single episode, that is still ongoing. Modifying factors: The symptoms are aggravated by nothing. Severity of symptoms: At their worst the symptoms were moderate in the emergency department the symptoms are unchanged. The patient has experienced similar episodes in the past, a few times. daja 3 weeks ago, on methimazole and propanolol. 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 aa5 Historical: - Allergies: 11:08 NKA; aa5 - Home Meds: 11:18 magnesium oxide 500 mg Oral tab [Active]; methimazole 5 mg Oral tab once daily hj [Active]; Vitamin D Oral [Active]; 11:18 gabapentin 800 mg oral tab 1 tab daily [Active]; propranolol 20 mg oral tab 1 tab 3 hj times per day [Active]; Ambien 10 mg Oral tab 1 tab once daily [Active]; - PMHx: 11:08 autoimmune hepititis; gastritis; graves disease; Hypertension; hyperthyroidism; Kidney aa5 stones; Migraines; - PSHx: 11:08 ; Cholecystectomy; Lithotripsy; sphincter of oddi surgery; aa5 - Immunization history:: Adult Immunizations up to date. - Social history:: Smoking status: Patient/guardian denies using tobacco. - Ebola Screening: : No symptoms or risks identified at this time. ROS: 12:07 All other systems are negative. gs Exam: 11:33 ECG was reviewed by the Attending Physician. gs 12:07 Head/Face: Normocephalic, atraumatic. Eyes: Pupils equal round and reactive to light, gs extra-ocular motions intact. Lids and lashes normal. Conjunctiva and sclera are non-icteric and not injected. Cornea within normal limits. Periorbital areas with no swelling, redness, or edema. ENT: Nares patent. No nasal discharge, no septal abnormalities noted. Tympanic membranes are normal and external auditory canals are clear. Oropharynx with no redness, swelling, or masses, exudates, or evidence of obstruction, uvula midline. Mucous membranes moist. Neck: Trachea midline, no thyromegaly or masses palpated, and no cervical lymphadenopathy. Supple, full range of motion without nuchal rigidity, or vertebral point tenderness. No Meningismus. Chest/axilla: Normal chest wall appearance and motion. Nontender with no deformity. No lesions are appreciated. 12:07 Respiratory: Lungs have equal breath sounds bilaterally, clear to auscultation and percussion. No rales, rhonchi or wheezes noted. No increased work of breathing, no retractions or nasal flaring. Abdomen/GI: Soft, non-tender, with normal bowel sounds. No distension or tympany. No guarding or rebound. No evidence of tenderness throughout. Back: No spinal tenderness. No costovertebral tenderness. Full range of motion. Skin: Warm, dry with normal turgor. Normal color with no rashes, no lesions, and no evidence of cellulitis. MS/ Extremity: Pulses equal, no cyanosis. Neurovascular intact. Full, normal range of motion. Neuro: Awake and alert, GCS 15, oriented to person, place, time, and situation. Cranial nerves II-XII grossly intact. Motor strength 5/5 in all extremities. Sensory grossly intact. Cerebellar exam normal. Normal gait. 12:07 Constitutional: The patient appears in no acute distress, alert, awake. 12:07 Cardiovascular: Rate: tachycardic, Rhythm: regular, Pulses: no pulse deficits are appreciated. Vital Signs: 11:08 BP 158 / 109; Pulse 130; Resp 20 S; Temp 98.7(O); Pulse Ox 100% on R/A; Weight 81.65 kg hj (R); Height 5 ft. 7 in. (170.18 cm) (R); Pain 0/10; 11:58 BP 122 / 58; Pulse 116; Resp 18; Pulse Ox 100% on R/A; hj 12:25 BP 138 / 80; Pulse 138; Resp 18; Pulse Ox 100% on R/A; hj 13:30 BP 116 / 59; Pulse 135; Resp 18; Pulse Ox 100% on R/A; hj 13:50 BP 118 / 60; Pulse 107; Resp 18; Pulse Ox 99% on R/A; hj 14:36 BP 119 / 65; Pulse 110; Resp 18; Pulse Ox 99% on R/A; hj 15:05 BP 120 / 66; Pulse 111; Resp 18; Pulse Ox 100% on R/A; hj 16:30 BP 122 / 68; Pulse 107; Resp 18; Pulse Ox 99% on R/A; hj 11:08 Body Mass Index 28.19 (81.65 kg, 170.18 cm) hj 12:25 on standing and walking to the bathroom; MDM: 11:21 Patient medically screened. 12:07 Differential diagnosis: arrythmia, dehydration, thyrotoxicosis. Data reviewed: vital gs signs, nurses notes. 12:07 Other consultation: dr kenyon sayadeline can go up on methimazole to 10mg BID and propanolol gs from 20 tid to 30 tid. 14:41 ED course: pt symptomatic with ambulation get hr to 140's. 01/14 11:18 Order name: CBC with Diff; Complete Time: 11:58 01/14 11:18 Order name: CMP; Complete Time: 12:04 01/14 11:18 Order name: TSH; Complete Time: 12:04 01/14 11:18 Order name: T3 Free; Complete Time: 12:04 01/14 11:18 Order name: T4 Free; Complete Time: 12:04 01/14 11:20 Order name: EKG; Complete Time: 11:21 01/14 11:20 Order name: EKG - Nurse/Tech; Complete Time: 11:32 gs EC:33 Rate is 130 beats/min. Rhythm is regular. NM interval is normal. QRS interval is gs normal. QT interval is normal. T waves are Normal. No ST changes noted. Clinical impression: Sinus tachycardia. Interpreted by me. Administered Medications: 11:25 Drug: NS 0.9% 1000 ml Route: IV; Rate: 1 bolus; Site: right antecubital; hj 12:36 Follow up: IV Status: Completed infusion 12:25 Drug: NS 0.9% 500 ml Route: IV; Rate: bolus; Site: right antecubital; hj 12:36 Follow up: IV Status: Completed infusion 15:06 Follow up: IV Status: Completed infusion; IV Intake: 500ml 12:46 Drug: Propranolol 10 mg Route: PO; 15:06 Follow up: Response: No adverse reaction Disposition: 01/14/18 14:45 Hospitalization ordered by Justin Evans for Inpatient Admission. Preliminary diagnosis is Thyrotoxicosis [hyperthyroidism]. - Bed requested for Telemetry/MedSurg (Inpatient). - Status is Inpatient Admission. hj - Condition is Stable. - Problem is an acute exacerbation. - Symptoms have improved. UTI on Admission? No Critical care time excluding procedures: 14:41 Critical care time: Bedside Care: 10 minutes, Consultation: 10 minutes, Family gs Intervention: 10 minutes. Total time: 30 minutes Signatures: Dispatcher [employer] EDMS Ivana Venegas Audri, RN RN aa5 James Sigala RN RN hj Starr, Gregory, MD MD Corrections: (The following items were deleted from the chart) 12:24 12:11 01/14/2018 12:11 Discharged to Home. Impression: Thyrotoxicosis gs [hyperthyroidism]. Condition is Stable. Forms are Medication Reconciliation Form, Thank You Letter, Antibiotic Education, Prescription Opioid Use. Follow up: Private Physician; When: 1 - 2 days; Reason: Re-evaluation by your physician. 15:33 14:45 Hospitalization Ordered by Justin Evans MD for Inpatient Admission. Preliminary bd diagnosis is Thyrotoxicosis [hyperthyroidism]. Bed requested for Telemetry/MedSurg (Inpatient). Status is Inpatient Admission. Condition is Stable. Problem is an acute exacerbation. Symptoms have improved. UTI on Admission? No. gs 16:01 11:18 Home Meds: gabapentin 300 mg Oral cap 1 cap daily; [facility] 16:01 11:18 Home Meds: propranolol 40 mg Oral tab; [facility] 16:33 15:33 01/14/2018 14:45 Hospitalization Ordered by Justin Evans MD for Inpatient Admission. Preliminary diagnosis is Thyrotoxicosis [hyperthyroidism]. Bed requested for Telemetry/MedSurg (Inpatient). Status is Inpatient Admission. Condition is Stable. Problem is an acute exacerbation. Symptoms have improved. UTI on Admission? No. bd
[2018-01-14] MEDS ORDERED: NA CHLORIDE 0.9% 500 ML ONE (12:39)
[2018-01-14] MEDS ORDERED: PROPRANOLOL HCL 10 MG TAB PO ONE ×2 (13:00→23:00)
[2018-01-14] MEDS ORDERED: ACETAMINOPHEN 500 MG TAB PO PRN (15:14)
[2018-01-14] MEDS ORDERED: ONDANSETRON 4 MG/2 ML VIAL IV PRN (15:14)
[2018-01-14] MEDS ORDERED: METOPROLOL TARTRATE 5 MG/5 ML INJ IV PRN (16:28)
[2018-01-14] MEDS: NA CHLORIDE 0.9% 1,000 ML IV SCH (17:01)
--- NOTE | 2018-01-14 17:43 | EKG ---
Test Date: 2018-01-14 Test Time: 11:18:25 Guard Entrance Registrar: RAYSHAWN MEASUREMENT RESULTS: Intervals: Rate: 130 MT: 138 QRSD: 80 QT: 298 QTc: 438 Conifer: P: 41 MT: 138 QRS: 9 T: 18 INTERPRETIVE STATEMENTS: Sinus tachycardia Otherwise normal ECG Compared to ECG 11/29/2016 09:50:56 Sinus rhythm no longer present Electronically Signed On 01-14-18 17:42:07 CDT by Torito Royal
[2018-01-14 17:45] VITALS: BMI 29.8
[2018-01-14] MEDS: ZOLPIDEM TARTRATE 5 MG TABLET PO SCH (20:57)
[2018-01-15] MEDS: NA CHLORIDE 0.9% 1,000 ML IV SCH ×3 (00:15→17:06)
--- NOTE | 2018-01-15 03:24 | HP ---
Date of Admission: 01/14/2018 Primary Care Physician: Dr. Terry Parra. Chief Complaint: Palpitations. 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 The patient states that she was also having some flushing, some shortness of breath; however, denies any chest pain. No shortness of breath. The patient's symptoms are constant, moderate, and progressively worsening. The patient has been on propranolol and methimazole. No alleviating factors. The patient's symptoms are aggravated by exertion. The patient was brought into the ER for further evaluation. Upon arrival, her vital signs showed heart rate in the 130s to 120s with any slight exertion, her heart rate would increase to 140s. The patient's workup found TSH less than 0.005, elevated T4 and T3 levels. WBC count was normal. Urine test was negative. The patient was then referred for admission. Her plater supervisor in [place] was contacted by the ER physician, who recommended increasing dose of propranolol and methimazole and to follow up with her after this hospitalization. Due to patient's symptoms and worsening with any minimal exertion including getting up and walking to the door from the bed, she was admitted for further evaluation and treatment. When seen in the ER, she was awake, alert, oriented x3, having some tremors. Past Medical History: Graves disease with recent radioactive iodine ablation, history of autoimmune hepatitis which has improved after sphincter of Oddi surgery, hypertension, history of kidney stones status post lithotripsy, migraine headache, x2, cholecystectomy. Allergies: NO KNOWN DRUG ALLERGIES. Medications: List reviewed. Social History: The patient denies any tobacco use, alcohol use, or illicit drug use. Currently employed. Family History: Denies any premature coronary artery disease. Last menstrual period was on 01/06/2018. Review of Systems: An 11-point system reviewed, negative except as per HPI. Physical Examination: Vital Signs: Blood pressure 158/109, pulse 130, respirations 20, O2 saturation 100% on room air, temperature 98.7. General: Awake, alert, oriented x3, in some mild distress. HEENT: Normocephalic, atraumatic. PERRLA. EOMI. Dry mucous membranes. Oropharynx is clear. Conjunctivae anicteric. Neck: Supple. No JVD. Trachea midline. CV: S1, S2. Sinus tachycardia. No murmurs. Peripheral pulses present. Respiratory: Moving air well bilaterally. No wheezing or stridor. No use of accessory muscles. Gastrointestinal: Abdomen is soft, nontender, nondistended. Positive bowel sounds. No guarding or rigidity. Extremities: No clubbing, cyanosis, or edema. No calf tenderness. Neuro: Cranial nerves 2 through 12 intact grossly. No focal neurological deficits. Speech is normal. The patient does have some tremors. Skin: No rashes. Normal skin turgor. Psych: Mood is somewhat anxious. Affect is congruent with mood. Insight and judgment are good. Laboratory Data: WBC 5.6, H and H 14.1 and 39.7, platelets 241. Sodium 141, potassium 3.9, chloride 107, CO2 26, BUN 12, creatinine 0.6, glucose 103, calcium 9.2, AST 26, ALT 77. TSH less than 0.005, T4 3.41. Assessment And Plan: A 27-year-old female with: 1. Graves disease with symptomatic tachycardia and tremors. We will increase dose of propranolol and methimazole. The patient does follow up with plater supervisor in [place], doubt any PE. No pleuritic chest pain or shortness of breath. TSH is low. Free T4 and T3 are elevated. 2. Essential hypertension. Resume home medications. 3. History of kidney stones. 4. History of migraine headaches. Plan: Admit the patient to [facility] as inpatient with remote cardiac telemetry. Start on IV fluids. Adjust home medications. If continues to improve, heart rate settles down and not symptomatic with exertion, then may be discharged in a.m. to follow up with her plater supervisor in [place]. Admit the patient to [facility] as observation. CARMEN Voice ID: [id number] MTDD
[2018-01-15 06:14] LABS: Absolute Lymphocytes (CBC) 1.9 K/uL (0.7-4.9); Absolute Monocytes 0.9 K/uL (0.1-1.3); Absolute Neutrophil 1.9 K/uL (1.8-8.0); Basophils % 0.4 % (0-1.3); Hematocrit 35.9 % (36.0-45.0); Lymphocytes % 37.5 % (15.3-44.8); MCH 31.3 pg (27.0-35.0); MCV 88.2 fL (80-100); MPV 8.4 fL (7.6-11.3); Monocytes % 18.1 % (3.3-12.3); RBC Red Blood Cell Count 4.07 M/uL (3.86-4.86)
[2018-01-15 06:27] LABS: ALT/SGPT 60 U/L (12-78); AST/SGOT 23 U/L (15-37); Albumin 2.7 g/dL (3.4-5.0); Alkaline Phosphatase 81 U/L (45-117); BUN Blood Urea Nitrogen 10 mg/dL (7-18); Bicarbonate 23 mmol/L (21-32); Bilirubin Total 0.3 mg/dL (0.2-1.0); Glucose Level 108 mg/dL (74-106); Potassium 3.4 mmol/L (3.5-5.1); Sodium Level 143 mmol/L (136-145)
[2018-01-15] MEDS: POTASSIUM 25 MEQ EFFERV TAB PO ONE ×2 (07:00→07:01)
[2018-01-15 07:47] LABS: Urine Appearance CLEAR; Urine Bilirubin NEGATIVE (NEG); Urine Blood NEGATIVE (NEG); Urine Color YELLOW; Urine Glucose NEGATIVE (NEG); Urine Protein NEGATIVE (NEG); Urine Specific Gravity 1.015 (1.005-1.030); Urine Urobilinogen 0.2 mg/dL (0.2-1.0)
[2018-01-15 07:51] LABS: Urine Microscopic Reflex NO UMIC
[2018-01-15] MEDS ORDERED: POTASSIUM CL SA 10 MEQ TAB PO ONE (08:00)
[2018-01-15 08:57] LABS: Blood Morphology Comment NOT SEEN (NOT SEEN); Platelet Estimate ADEQ
[2018-01-15] MEDS ORDERED: GABAPENTIN 400 MG CAP PO SCH ×2 (09:00→21:00)
[2018-01-15] MEDS ORDERED: PROPRANOLOL HCL 60 MG SA CAP PO SCH (09:00)
[2018-01-15] MEDS ORDERED: PROPRANOLOL HCL 60 MG PO SCH (09:00)
[2018-01-15] MEDS ORDERED: MAGNESIUM OXIDE 400 MG TAB PO SCH ×2 (09:00→21:00)
[2018-01-15] MEDS ORDERED: MAGNESIUM OXIDE 500 MG PO SCH (09:00)
[2018-01-15] MEDS ORDERED: HOME MED 1 EA UNK (Gabapentin [Gabapentin] 800 MG) PO SCH (09:00)
--- NOTE | 2018-01-15 20:26 | P.PN ---
Subjective Date of Service: 01/15/18 Chief Complaint: Palpitations Subjective: No new changes Patient seen and examined at bedside. Family at bedside. Still having palpitations with exertion. No changes noted. Otherwise no complaints while sitting/laying still. Physical Examination - Vital Signs Temperature: 98.1 F Blood Pressure: 139/65 Pulse: 79 Respirations: 18 Pulse Ox (%): 96 - Physical Exam General: Alert, In no apparent distress, Oriented x3 HEENT: Atraumatic Neck: Supple, JVD not distended Respiratory: Clear to auscultation bilaterally, Normal air movement Cardiovascular: No edema, Normal S1 S2, No murmurs, Irregular heart rate/rhythm (Tachycardic. ) Gastrointestinal: Normal bowel sounds, No tenderness Musculoskeletal: No clubbing Neurological: Normal gait, Normal speech, Normal strength at 5/5 x4 extr, Normal tone Assessment And Plan - Plan A 27-year-old female with: 1. Graves disease with symptomatic tachycardia and tremors. We will increase dose of propranolol to 40 mg BID and methimazole 10 mg BID. The patient does follow up with supervising floorperson in [place], doubt any PE. No pleuritic chest pain or shortness of breath. TSH is low. Free T4 and T3 are elevated. 2. Essential hypertension. Resume home medications. 3. History of kidney stones. 4. History of migraine headaches. Plan: Discharge home tomorrow if symptomatic improvement. 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 Discharge Plan: Home Plan to discharge in: 24 Hours
[2018-01-15] MEDS ORDERED: VITAMIN D 1000 UNIT TAB PO SCH (21:00)
[2018-01-15] MEDS: PROPRANOLOL HCL 40 MG TAB PO SCH (21:38)
[2018-01-15] MEDS: ZOLPIDEM TARTRATE 5 MG TABLET PO SCH (21:39)
[2018-01-16] MEDS: NA CHLORIDE 0.9% 1,000 ML IV SCH ×2 (00:40→10:17)
[2018-01-16 06:49] LABS: BUN Blood Urea Nitrogen 11 mg/dL (7-18); Bicarbonate 25 mmol/L (21-32); Glucose Level 100 mg/dL (74-106); Potassium 3.8 mmol/L (3.5-5.1); Sodium Level 144 mmol/L (136-145)
[2018-01-16] MEDS ORDERED: POTASSIUM CL SA 10 MEQ TAB PO ONE (07:00)
[2018-01-16 09:46] VITALS: O2SAT 98
[2018-01-16] MEDS: PROPRANOLOL HCL 40 MG TAB PO SCH (10:18)
--- NOTE | 2018-01-16 11:44 | P.DS ---
Admission Date: 01/14/18 Discharge Date: 01/16/18 Primary Care Provider: Dr. Terry Parra Disposition: ROUTINE DISCHARGE Discharge Condition: GOOD Reason for Admission: Palpitations - Problems (1) Thyrotoxicosis Onset Date: 01/15/18 Current Visit: Yes Status: Resolved Qualifiers: Thyrotoxicosis type: other Brief History of Present Illness: a 27-year-old female with past medical history of Graves disease with recent radioactive iodine ablation 3 weeks prior to admission, who follows an staff nurse in [place], hypertension, migraines, came in with palpitations while at work, at rest. She was also having some flushing, some shortness of breath; however, tonight any chest pain or shortness of breath. The patient's symptoms were constant, moderate, and progressively worsening. The patient has been on propranolol and methimazole. The patient's symptoms are aggravated by exertion. The patient was brought into the ER for further evaluation. Hospital Course: 1. Graves disease with symptomatic tachycardia and tremors Upon arrival, her vital signs showed heart rate in the 130s to 120s with any slight exertion, her heart rate would increase to 140s. The patient's workup found TSH less than 0.005, elevated T4 and T3 levels. WBC count was normal. Urine test was negative. The patient was then admitted. Her staff nurse in [place] was contacted by the ER physician, who recommended increasing dose of propranolol and methimazole and to follow up with her after this hospitalization. Throughout the course of the stay her propranolol was increased to 40 mg b.i.d. and her methimazole was increased to 10 mg b.i.d. after this change her symptoms improved and she was discharged on this new dosage of her medication. 2. Essential hypertension. Resume home medications. 3. History of kidney stones. 4. History of migraine headaches Vital Signs/Physical Exam: Temp Pulse Resp BP Pulse Ox 97.6 F 101 H 20 124/66 96 01/16/18 08:00 01/16/18 10:01/16/18 08:00 01/16/18:01/16/18 08:00 General: Alert, In no apparent distress, Oriented x3 HEENT: Atraumatic, Normocephalic, PERRLA Neck: Supple, JVD not distended Respiratory: Clear to auscultation bilaterally, Normal air movement Cardiovascular: Normal pulses, Regular rate/rhythm, Normal S1 S2, Systolic murmur Gastrointestinal: Normal bowel sounds, Soft and benign Musculoskeletal: No clubbing, No swelling Neurological: Normal gait, Normal speech Laboratory Data at Discharge: WBC 5.0 K/uL (4.3-10.9) 01/15/18 05:44 Hgb 12.7 g/dL (12.0-15.0) 01/15/18 05:44 Hct 35.9 % (36.0-45.0) L 01/15/18 05:44 Plt Count 197 K/uL (152-406) 01/15/18 05:44 Sodium 144 mmol/L (136-145) 01/16/18 05:54 Potassium 3.8 mmol/L (3.5-5.1) 01/16/18 05:54 BUN 11 mg/dL (7-18) 01/16/18 05:54 Creatinine 0.60 mg/dL (0.55-1.3) 01/16/18 05:54 Glucose 100 mg/dL (74-106) 01/16/18 05:54 Magnesium 1.9 mg/dL (1.8-2.4) 01/15/18 05:44 Total Bilirubin 0.3 mg/dL (0.2-1.0) 01/15/18 05:44 AST 23 U/L (15-37) 01/15/18 05:44 ALT 60 U/L (12-78) 01/15/18 05:44 Alkaline Phosphatase 81 U/L (45-117) 01/15/18 05:44 Home Medications: Cholecalciferol (Vitamin D3) [Vitamin D 1000 Iu Tab*] 1,000 iu PO DAILY Gabapentin 800 mg PO DAILY 01/14/18 Magnesium Oxide 500 mg PO DAILY 01/14/18 Zolpidem Tartrate [Ambien*] 5 mg PO BEDTIME 01/14/18 Propranolol [Inderal*] 40 mg PO BID #30 tab 01/16/18 methIMAzole [Tapazole*] 10 mg PO BID #30 tab 01/16/18 New Medications: methIMAzole [Tapazole*] 10 mg PO BID #30 tab Propranolol [Inderal*] 40 mg PO BID #30 tab Patient Discharge Instructions: Please follow up with the staff nurse in the next 1 weeks Diet: Regular Activity: Ad vero Time spent managing pt's care (in minutes): 45
[2018-01-16 12:30] VITALS: BP 117/61; TEMP 98.4
== END 2018-01-16 13:00 | disposition home or self-care (01) | DRG 645 ==
LOC: ER 10:57 → ERHOLD 14:48 → 2ND 16:14
PROVIDERS: ADMIT Family Medicine; ATTEND Family Medicine
DX: E05.00 Thyrotoxicosis with diffuse goiter without thyrotoxic crisis or storm (principal); I10 Essential (primary) hypertension; Z87.442 Personal history of urinary calculi
CPT/HCPCS: 36415; 80048; 80053; 81003; 83735; 84132; 84439; 84443; 84481; 85025; 93005; 94760; 96360; 99285; J7030

== ENCOUNTER 2018-06-26 10:56 | Emergency (ER) | payer BC, OTHER ==
--- OUTSIDE RECORDS SUMMARY | 2018-06-26 10:59 | XMS REPORT ---
:1990 [facility] Address [address] [place] [address] Care Team Providers Name Role Phone IVANIATRE [...] Value Reference Range Comments LIPASE (BEAKER) (test wepz=414) 16 U/L 8-78 COMPREHENSIVE METABOLIC [id number] 10:51:00 Test Item Value Reference Range Comments TOTAL PROTEIN (BEAKER) 6.3 gm/dL 6.0-8.3 (test dxth=987) ALBUMIN (BEAKER) (test 3.4 g/dL 3.5-5.0 jkww=4745) ALKALINE PHOSPHATASE 74 U/L 40-150 (BEAKER) (test jdnb=796) BILIRUBIN TOTAL (BEAKER) 0.6 mg/dL 0.2-1.2 (test njrj=605) SODIUM (BEAKER) (test 139 meq/L 136-145 nxys=370) POTASSIUM (BEAKER) (test 3.5 meq/L 3.5-5.1 wpen=663) CHLORIDE (BEAKER) (test 107 meq/L 98-107 niht=036) CO2 (BEAKER) (test 26 meq/L 22-29 ljnk=433) BLOOD UREA NITROGEN 7 mg/dL 7-21 (BEAKER) (test xruy=764) CREATININE (BEAKER) (test 0.69 mg/dL 0.57-1.25 ampu=286) GLUCOSE RANDOM (BEAKER) 92 mg/dL 70-105 (test mxvc=128) CALCIUM (BEAKER) (test 8.4 mg/dL 8.4-10.2 hsga=607) AST (SGOT) (BEAKER) (test 25 U/L 5-34 mlhn=660) ALT (SGPT) (BEAKER) (test 44 U/L 6-55 ckly=020) EGFR (BEAKER) (test 101 mL/min/1.73 sq ESTIMATED GFR IS NOT jucz=5683) m ACCURATE CREATININE CLEARANCE IN PREDICTING GLOMERULAR FILTRATION RATE. ESTIMATED GFR IS NOT APPLICABLE FOR DIALYSIS PATIENTS. [id number] 19:35:00 Test Item Value Reference Range Comments LIPASE (BEAKER) (test trwg=279) 233 U/L 8-78 COMPREHENSIVE METABOLIC [id number] 19:35:00 Test Item Value Reference Range Comments TOTAL PROTEIN (BEAKER) 6.6 gm/dL 6.0-8.3 (test pycc=838) ALBUMIN (BEAKER) (test 3.6 g/dL 3.5-5.0 muhx=5001) ALKALINE PHOSPHATASE 82 U/L 40-150 (BEAKER) (test seds=214) BILIRUBIN TOTAL (BEAKER) 0.4 mg/dL 0.2-1.2 (test iieh=090) SODIUM (BEAKER) (test 136 meq/L 136-145 ntln=673) POTASSIUM (BEAKER) (test 4.0 meq/L 3.5-5.1 rsqy=067) CHLORIDE (BEAKER) (test 105 meq/L 98-107 bgdd=772) CO2 (BEAKER) (test 27 meq/L 22-29 abex=950) BLOOD UREA NITROGEN 11 mg/dL 7-21 (BEAKER) (test bvlj=369) CREATININE (BEAKER) (test 0.76 mg/dL 0.57-1.25 vpyj=911) GLUCOSE RANDOM (BEAKER) 109 mg/dL 70-105 (test drpu=971) CALCIUM (BEAKER) (test 9.0 mg/dL 8.4-10.2 zajp=629) AST (SGOT) (BEAKER) (test 30 U/L 5-34 omqa=258) ALT (SGPT) (BEAKER) (test 47 U/L 6-55 nihx=626) EGFR (BEAKER) (test 90 mL/min/1.73 sq m ESTIMATED GFR IS NOT uqnp=7766) ACCURATE CREATININE CLEARANCE IN PREDICTING GLOMERULAR FILTRATION RATE. ESTIMATED GFR IS NOT APPLICABLE FOR DIALYSIS PATIENTS. IA, [id number] 15:44:00Referring: Dr. Duran Thomas INTRA OP IMAGING [...] MDReport Verified Date/Time: 05/15/2017 15 :44:29 Reading Location:[address] Radiology Reading Room ANTI- NUCLEAR ANTIBODY (ARIC)2017-03-28 10:37:00 Test Item Value Reference Range Comments ANTI-NUCLEAR ANTIBODY (ARIC) (BEAKER) (test Negative Negative iiyk=434) HEPATITIS B SURFACE [id number] 18:33:00 Test Item Value Reference Range Comments HEPATITIS B SURFACE ANTIBODY (BEAKER) (test 678.3 mIU/mL <8.0 xhpx=891) HEPATITIS A ANTIBODY, [id number] 18:33:00 Test Item Value Reference Range Comments HEPATITIS A IGG ANTIBODY (BEAKER) (test Nonreactive Nonreactive yntv=4220) IMMUNOGLOBULIN G (IGG)2017-03-27 18:04:00 Test Item Value Reference Range Comments IMMUNOGLOBULIN G (IGG) (BEAKER) (test icoa=617) 1397 mg/dL 540-1822 HEPATIC FUNCTION [id number] 17:26:00 Test Item Value Reference Range Comments TOTAL PROTEIN (BEAKER) (test jdcx=821) 7.7 gm/dL 6.0-8.3 ALBUMIN (BEAKER) (test ixqa=5668) 4.1 g/dL 3.5-5.0 BILIRUBIN TOTAL (BEAKER) (test mtyq=886) 0.3 mg/dL 0.2-1.2 BILIRUBIN DIRECT (BEAKER) (test jjol=452) 0.1 mg/dL 0.1-0.5 ALKALINE PHOSPHATASE (BEAKER) (test fowl=111) 94 U/L 40-150 AST (SGOT) (BEAKER) (test kbvc=516) 24 U/L 5-34 ALT (SGPT) (BEAKER) (test abtb=281) 43 U/L 6-55 BASIC METABOLIC [id number] 17:26:00 Test Item Value Reference Range Comments SODIUM (BEAKER) (test 138 meq/L 136-145 odoq=595) POTASSIUM (BEAKER) (test 3.5 meq/L 3.5-5.1 ueud=572) CHLORIDE (BEAKER) (test 105 meq/L 98-107 edig=632) CO2 (BEAKER) (test 25 meq/L 22-29 sdec=908) BLOOD UREA NITROGEN 13 mg/dL 7-21 (BEAKER) (test gboj=422) CREATININE (BEAKER) (test 0.77 mg/dL 0.57-1.25 zpqp=842) GLUCOSE RANDOM (BEAKER) 95 mg/dL 70-105 (test qnzg=735) CALCIUM (BEAKER) (test 9.5 mg/dL 8.4-10.2 dyji=712) EGFR (BEAKER) (test 89 mL/min/1.73 sq m ESTIMATED GFR IS NOT afun=2592) ACCURATE CREATININE CLEARANCE IN PREDICTING GLOMERULAR FILTRATION RATE. ESTIMATED GFR IS NOT APPLICABLE FOR DIALYSIS PATIENTS. PROTHROMBIN [id number] 17:10:00 Test Item Value Reference Range Comments PROTIME (BEAKER) (test hyzq=600) 12.2 seconds 11.7-14.7 INR (BEAKER) (test hxos=866) 0.9 <=5.9 RECOMMENDED COUMADIN/WARFARIN INR THERAPY RANGESSTANDARD DOSE: 2.0 - 3.0 Includes: PROPHYLAXIS forvenous thrombosis, systemic embolization; TREATMENT for venous thrombosis and/or pulmonary embolus.HIGH RISK: Target INR is 2.5-3.5 for patients with mechanical heart valves.CBC W/PLT COUNT & AUTO [id number] 17:01:00 Test Item Value Reference Range Comments WHITE BLOOD CELL COUNT (BEAKER) (test syyf=449) 8.6 K/ L 3.5-10.5 RED BLOOD CELL COUNT (BEAKER) (test egpw=309) 4.39 M/ L 3.93-5.22 HEMOGLOBIN (BEAKER) (test pmuu=723) 13.4 GM/DL 11.2-15.7 HEMATOCRIT (BEAKER) (test aewg=136) 40.1 % 34.1-44.9 MEAN CORPUSCULAR VOLUME (BEAKER) (test yhex=394) 91.3 fL 79.4-94.8 MEAN CORPUSCULAR HEMOGLOBIN (BEAKER) (test 30.5 pg 25.6-32.2 eifz=546) MEAN CORPUSCULAR HEMOGLOBIN CONC (BEAKER) (test 33.4 GM/DL 32.2-35.5 mhyn=199) RED CELL DISTRIBUTION WIDTH (BEAKER) (test 12.4 % 11.7-14.4 qyhj=513) PLATELET COUNT (BEAKER) (test hfkn=745) 314 K/CU MM 150-450 MEAN PLATELET VOLUME (BEAKER) (test yygc=849) 10.3 fL 9.4-12.3 NUCLEATED RED BLOOD CELLS (BEAKER) (test 0 /100 WBC 0-0 vtzu=950) NEUTROPHILS RELATIVE PERCENT (BEAKER) (test 44 % bmhd=351) LYMPHOCYTES RELATIVE PERCENT (BEAKER) (test 42 % ihqe=210) MONOCYTES RELATIVE PERCENT (BEAKER) (test 9 % yzkh=057) EOSINOPHILS RELATIVE PERCENT (BEAKER) (test 4 % phrq=183) BASOPHILS RELATIVE PERCENT (BEAKER) (test 1 % znsr=451) NEUTROPHILS ABSOLUTE COUNT (BEAKER) (test 3.73 K/ L 1.56-6.13 rcnc=783) LYMPHOCYTES ABSOLUTE COUNT (BEAKER) (test 3.57 K/ L 1.18-3.74 aptu=212) MONOCYTES ABSOLUTE COUNT (BEAKER) (test 0.77 K/ L 0.24-0.36 ozgc=030) EOSINOPHILS ABSOLUTE COUNT (BEAKER) (test 0.32 K/ L 0.04-0.36 saso=339) BASOPHILS ABSOLUTE COUNT (BEAKER) (test 0.06 K/ L 0.01-0.08 lfde=576) IMMATURE GRANULOCYTES-RELATIVE PERCENT (BEAKER) 1 % 0-1 (test erpy=1144)
--- OUTSIDE RECORDS SUMMARY | 2018-06-26 10:59 | XMS REPORT | Clinical Summary ---
:1990 Author Organization [facility] Address [address] [place] [address] Care Team Providers Name Role Phone Terry Parra MD Primary Care Provider Allergies No Known Allergies Medications Medication Sig Dispensed Refills Start Date End Date Status METHIMAZOLE ORAL Take by mouth. 0 Active PROPRANOLOL HCL Take by mouth. 0 Active (PROPRANOLOL ORAL) ZOLPIDEM TARTRATE Take by mouth. 0 Active (AMBIEN ORAL) cholecalciferol, Take 1,000 Units 0 Active vitamin D3, 1,000 unit by mouth daily. capsule MAGNESIUM CARBONATE Take by mouth. 0 Active ORAL CHLORDIAZEPOXIDE/CLIDI Take by mouth 3 0 Active NIUM BR (three) times (CHLORDIAZEPOXIDE-CLID daily. INIUM ORAL) sucralfate (CARAFATE) Take 1 g by mouth 0 Active 1 gram tablet 3 (three) times daily before meals. HYDROcodone-acetaminop Take 1 tablet by 10 tablet 0 05/18/2017 Active hen (NORCO 10-325) mouth every 4 10-325 mg per tablet (four) hours as needed. Max Daily Amount: 6 tablets ondansetron (ZOFRAN) 4 Take 1 tablet (4 10 tablet 0 05/18/2017 Active MG tablet mg total) by mouth 3 (three) times daily as needed for Nausea. Active Problems Problem Noted Date Acute pancreatitis 05/16/2017 Pancreatitis 05/15/2017 Epigastric pain 05/15/2017 Abnormal liver enzymes 03/27/2017 Obesity 03/27/2017 Immunity status testing 03/27/2017 Chronic abdominal pain 03/27/2017 Gastritis 03/27/2017 Family History Medical History Relation Name Comments [...] Assigned at Date Recorded Not on file Job Start Date Occupation Industry Not on file Not on file Not on file Travel History Travel Start Travel End No recent travel history available. Last Filed Vital Signs Not on file Plan of Treatment Not on file Results Not on fileafter 06/25/2017 Insurance Payer Benefit Plan / Group Subscriber ID Type Phone Address [employer] - [employer] HMO POS QPOS xxxxxxxxxx HMO/POS Advance Directives For more information, please contact:[id number] [place], [place] [phone] Code Status Date Activated Date Inactivated Comments Full Code 05/15/2017 5:51 PM 05/18/2017 4:08 PM This code status was determined by: Patient
[2018-06-26] MEDS ORDERED: TETANUS & DIPHTHERIA TOX,ADULT 0.5 ML VIAL ONE (13:23)
--- NOTE | 2018-06-26 13:25 | EDPHYS ---
Physician Documentation [facility] Name: Rubi Farfan Age: 28 yrs Sex: Female : 1990 Arrival Date: 06/26/2018 Time: 11:02 Bed 11 Private MD: Terry Parra B ED Physician Christian Garcia HPI: 06/26 13:05 This 28 yrs old Female presents to ER via Ambulatory with complaints of pm1 Finger Laceration. 13:05 The patient or guardian reports a laceration. The complaints affect the palmar aspect pm1 of distal phalanx of left thumb. Context: The problem was sustained at home, resulted from accidental cut with razor. Onset: The symptoms/episode began/occurred this morning. Modifying factors: The symptoms are alleviated by nothing. Associated signs and symptoms: The patient has no apparent associated signs or symptoms. Severity of symptoms: in the emergency department the symptoms are unchanged. The patient has not experienced similar symptoms in the past. The patient has been recently seen at an urgent care, just prior to arrival, for similar complaints, referred to ER. Patient presenting with loose bandaging to left thumb. 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 - Social history:: Smoking status: Patient/guardian denies using tobacco. - Ebola Screening: : Patient negative for fever greater than or equal to 101.5 degrees Fahrenheit, and additional compatible Ebola Virus Disease symptoms Patient denies exposure to infectious person Patient denies travel to an Ebola-affected area in the 21 days before illness onset No symptoms or risks identified at this time. ROS: 13:05 Constitutional: Negative for fever, chills, and weight loss, Eyes: Negative for injury, pm1 pain, redness, and discharge, ENT: Negative for injury, pain, and discharge, Neck: Negative for injury, pain, and swelling, Cardiovascular: Negative for chest pain, palpitations, and edema, Respiratory: Negative for shortness of breath, cough, wheezing, and pleuritic chest pain, Abdomen/GI: Negative for abdominal pain, nausea, vomiting, diarrhea, and constipation, Back: Negative for injury and pain, : Negative for injury, bleeding, discharge, and swelling, MS/Extremity: Negative for injury and deformity. 13:05 Neuro: Negative for headache, weakness, numbness, tingling, and seizure. 13:05 Skin: Positive for laceration(s), of the palmar aspect of distal phalanx of left thumb. Exam: 13:05 Constitutional: This is a well developed, well nourished patient who is awake, alert, pm1 and in no acute distress. Head/Face: Normocephalic, atraumatic. Neck: Trachea midline, no thyromegaly or masses palpated, and no cervical lymphadenopathy. Supple, full range of motion without nuchal rigidity, or vertebral point tenderness. No Meningismus. Chest/axilla: Normal chest wall appearance and motion. Nontender with no deformity. No lesions are appreciated. Cardiovascular: Regular rate and rhythm with a normal S1 and S2. No gallops, murmurs, or rubs. Normal PMI, no JVD. No pulse deficits. Respiratory: Lungs have equal breath sounds bilaterally, clear to auscultation and percussion. No rales, rhonchi or wheezes noted. No increased work of breathing, no retractions or nasal flaring. Abdomen/GI: Soft, non-tender, with normal bowel sounds. No distension or tympany. No guarding or rebound. No evidence of tenderness throughout. Back: No spinal tenderness. No costovertebral tenderness. Full range of motion. 13:05 MS/ Extremity: Pulses equal, no cyanosis. Neurovascular intact. Full, normal range of motion. 13:05 Skin: Appearance: normal except for affected area, injury, laceration(s), that can be described as clean, no foreign body, 3mm small circular avulsion laceration to left thumb. 13:05 Neuro: Orientation: is normal, Motor: is normal, moves all fours. Vital Signs: 11:46 Pulse 87; Resp 16; Temp 98.2; Pulse Ox 100% on R/A; Weight 81.65 kg; Height 5 ft. 7 in. iw (170.18 cm); Pain 2/10; 11:46 Body Mass Index 28.19 (81.65 kg, 170.18 cm) MDM: 12:37 Patient medically screened. pm1 13:02 Data reviewed: vital signs. Data interpreted: Pulse oximetry: on room air is 100 %. pm1 Interpretation: normal. 13:23 Counseling: I had a detailed discussion with the patient and/or guardian regarding: the pm1 historical points, exam findings, and any diagnostic results supporting the discharge/admit diagnosis, the need for outpatient follow up, a family practitioner, to return to the emergency department if symptoms worsen or persist or if there are any questions or concerns that arise at home. 06/26 13:04 Order name: Wound Care; Complete Time: 13:23 pm1 Administered Medications: 13:20 Drug: Tetanus-Diphtheria Toxoid Adult 0.5 ml {Speech And Language Tutor: [employer]. Exp: iw 05/23/2020. Lot #: [id number]. } Route: IM; Site: right deltoid; Disposition: 06/27 08:03 Co-signature as Attending Physician, Christian Garcia MD I agree with the assessment and ricci plan of care. Disposition: 06/26/18 13:25 Discharged to Home. Impression: Laceration without foreign body of left thumb without damage to nail. - Condition is Stable. - Discharge Instructions: Laceration Care, Adult. - Prescriptions for Keflex 500 mg Oral Capsule - take 1 capsule by ORAL route every 12 hours for 10 days; 20 capsule. - Medication Reconciliation Form, Thank You Letter, Antibiotic Education, Prescription Opioid Use form. - Follow up: Emergency Department; When: As needed; Reason: Worsening of condition. Follow up: Private Physician; When: 2 - 3 days; Reason: Recheck today's complaints, Continuance of care, Re-evaluation by your physician. - Problem is new. - Symptoms have improved. Signatures: Christian Garcia MD MD cha Williams, Irene, RN RN iw Freddie Davis NP EMERGENCY ROOM TECHNICIAN pm1 Corrections: (The following items were deleted from the chart) 06/26 13:28 13:25 06/26/2018 13:25 Discharged to Home. Impression: Laceration without foreign body iw of left thumb without damage to nail. Condition is Stable. Forms are Medication Reconciliation Form, Thank You Letter, Antibiotic Education, Prescription Opioid Use. Follow up: Emergency Department; When: As needed; Reason: Worsening of condition. Follow up: Private Physician; When: 2 - 3 days; Reason: Recheck today's complaints, Continuance of care, Re-evaluation by your physician. Problem is new. Symptoms have improved. pm1
--- NOTE | 2018-06-26 13:25 | ER ---
Nurse's Notes [facility] Name: Rubi Farfan Age: 28 yrs Sex: Female : 1990 Arrival Date: 06/26/2018 Time: 11:02 Bed 11 Private MD: Terry Parra B Diagnosis: Laceration without foreign body of left thumb without damage to nail Presentation: 06/26 11:44 Presenting complaint: Patient states: cut left thumb on razor this morning, went to urgent care, and was told to come here, states it has not stopped bleeding. Transition of care: patient was not received from another setting of care. Onset of symptoms was June 26, 2018. Risk Assessment: Do you want to hurt yourself or someone else? Patient reports no desire to harm self or others. Initial Sepsis Screen: Does the patient meet any 2 criteria? No. Patient's initial sepsis screen is negative. Does the patient have a suspected source of infection? No. Patient's initial sepsis screen is negative. Care prior to arrival: None. 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 - Social history:: Smoking status: Patient/guardian denies using tobacco. - Ebola Screening: : Patient negative for fever greater than or equal to 101.5 degrees Fahrenheit, and additional compatible Ebola Virus Disease symptoms Patient denies exposure to infectious person Patient denies travel to an Ebola-affected area in the 21 days before illness onset No symptoms or risks identified at this time. Screenin:27 Abuse screen: Denies threats or abuse. Denies injuries from another. Nutritional iw screening: No deficits noted. Tuberculosis screening: No symptoms or risk factors identified. Fall Risk None identified. Assessment: 12:26 General: Appears in no apparent distress. Behavior is calm, cooperative. Pain: iw Complains of pain in palmar aspect of distal phalanx of left thumb. Neuro: Level of Consciousness is awake, alert, obeys commands, Moves all extremities. Full function. Cardiovascular: Patient's skin is warm and dry. Respiratory: Airway is patent Respiratory effort is even, unlabored. Derm: Skin is intact, is healthy with good turgor. Musculoskeletal: Range of motion: intact in all extremities. Injury Description: Avulsion sustained to palmar aspect of distal phalanx of left thumb. Vital Signs: 11:46 Pulse 87; Resp 16; Temp 98.2; Pulse Ox 100% on R/A; Weight 81.65 kg; Height 5 ft. 7 in. iw (170.18 cm); Pain 2/10; 11:46 Body Mass Index 28.19 (81.65 kg, 170.18 cm) iw ED Course: 11:02 Patient arrived in ED. mr 11:02 Terry Parra MD is Private Physician. mr 11:45 Triage completed. iw 11:46 Arm band placed on. iw 12:26 Caryn Martinez RN is Primary Nurse. iw 12:26 Patient has correct armband on for positive identification. iw 12:36 Freddie Davis NP is PHCP. pm1 12:37 Christian Garcia MD is Attending Physician. pm1 13:27 No provider procedures requiring assistance completed. Patient did not have IV access iw during this emergency room visit. Administered Medications: 13:20 Drug: Tetanus-Diphtheria Toxoid Adult 0.5 ml {Appraisal Coordinator: [employer]. Exp: iw 05/23/2020. Lot #: [id number]. } Route: IM; Site: right deltoid; Outcome: 13:25 Discharge ordered by . pm1 13:27 Discharged to home ambulatory. iw 13:27 Condition: good 13:27 Discharge instructions given to patient, Instructed on discharge instructions, follow up and referral plans. medication usage, wound care, Demonstrated understanding of instructions, follow-up care, medications, wound care, Prescriptions given X 1. 13:28 Patient left the ED. iw Signatures: Glo [place] Caryn Martinez RN RN iw Freddie Davis NP CONVERTIBLE SOFA BEDSPRING TESTER pm1
[2018-06-26 13:31] VITALS: TEMP 98.2; O2SAT 100
== END 2018-06-26 13:28 | disposition home or self-care (01) ==
LOC: ER 10:56
DX: S61.012A Laceration without foreign body of left thumb without damage to nail, initial encounter (principal); I10 Essential (primary) hypertension; W45.8XXA Other foreign body or object entering through skin, initial encounter; Y93.9 Activity, unspecified; Y92.009 Unspecified place in unspecified non-institutional (private) residence as the place of occurrence of the external cause; Z23 Encounter for immunization
CPT/HCPCS: 90714; 99283

== ENCOUNTER 2018-08-05 20:05 | Emergency (ER) | payer BC ==
--- OUTSIDE RECORDS SUMMARY | 2018-08-05 20:07 | XMS REPORT ---
:1990 [facility] Address [address] [place] [address] Care Team Providers Name Role Phone ALYSON TRE Unavailable Unavailable TASHIA BURT Unavailable Unavailable Problems This patient has no known problems. Allergies, Adverse Reactions, Alerts This patient has no known allergies or adverse reactions. Medications This patient has no known medications. Results Test Description Test Time Test Comments Text Results Atomic Results Result Comments LIPASE 2017-05-16 10:51:00 Test Item Value Reference Range Comments LIPASE (BEAKER) (test onwe=620) 16 U/L 8-78 COMPREHENSIVE METABOLIC [id number] 10:51:00 Test Item Value Reference Range Comments TOTAL PROTEIN (BEAKER) 6.3 gm/dL 6.0-8.3 (test svsz=474) ALBUMIN (BEAKER) (test 3.4 g/dL 3.5-5.0 owaz=9518) ALKALINE PHOSPHATASE 74 U/L 40-150 (BEAKER) (test psaa=318) BILIRUBIN TOTAL (BEAKER) 0.6 mg/dL 0.2-1.2 (test uxah=952) SODIUM (BEAKER) (test 139 meq/L 136-145 hkmw=834) POTASSIUM (BEAKER) (test 3.5 meq/L 3.5-5.1 cdzb=239) CHLORIDE (BEAKER) (test 107 meq/L 98-107 fhzz=066) CO2 (BEAKER) (test 26 meq/L 22-29 pmtq=371) BLOOD UREA NITROGEN 7 mg/dL 7-21 (BEAKER) (test pgjo=990) CREATININE (BEAKER) (test 0.69 mg/dL 0.57-1.25 maqd=942) GLUCOSE RANDOM (BEAKER) 92 mg/dL 70-105 (test nadd=720) CALCIUM (BEAKER) (test 8.4 mg/dL 8.4-10.2 bbgu=874) AST (SGOT) (BEAKER) (test 25 U/L 5-34 jpkt=761) ALT (SGPT) (BEAKER) (test 44 U/L 6-55 bojw=456) EGFR (BEAKER) (test 101 mL/min/1.73 sq ESTIMATED GFR IS NOT nhib=4779) m ACCURATE CREATININE CLEARANCE IN PREDICTING GLOMERULAR FILTRATION RATE. ESTIMATED GFR IS NOT APPLICABLE FOR DIALYSIS PATIENTS. [id number] 19:35:00 Test Item Value Reference Range Comments LIPASE (BEAKER) (test daex=694) 233 U/L 8-78 COMPREHENSIVE METABOLIC [id number] 19:35:00 Test Item Value Reference Range Comments TOTAL PROTEIN (BEAKER) 6.6 gm/dL 6.0-8.3 (test ndnd=814) ALBUMIN (BEAKER) (test 3.6 g/dL 3.5-5.0 aoeg=5223) ALKALINE PHOSPHATASE 82 U/L 40-150 (BEAKER) (test xdba=498) BILIRUBIN TOTAL (BEAKER) 0.4 mg/dL 0.2-1.2 (test skkt=549) SODIUM (BEAKER) (test 136 meq/L 136-145 qovp=414) POTASSIUM (BEAKER) (test 4.0 meq/L 3.5-5.1 qcse=814) CHLORIDE (BEAKER) (test 105 meq/L 98-107 jiqm=378) CO2 (BEAKER) (test 27 meq/L 22-29 gmjw=763) BLOOD UREA NITROGEN 11 mg/dL 7-21 (BEAKER) (test otlv=816) CREATININE (BEAKER) (test 0.76 mg/dL 0.57-1.25 jecq=993) GLUCOSE RANDOM (BEAKER) 109 mg/dL 70-105 (test hvlz=236) CALCIUM (BEAKER) (test 9.0 mg/dL 8.4-10.2 yvth=162) AST (SGOT) (BEAKER) (test 30 U/L 5-34 sycg=479) ALT (SGPT) (BEAKER) (test 47 U/L 6-55 okor=748) EGFR (BEAKER) (test 90 mL/min/1.73 sq m ESTIMATED GFR IS NOT ubxt=8348) ACCURATE CREATININE CLEARANCE IN PREDICTING GLOMERULAR FILTRATION RATE. ESTIMATED GFR IS NOT APPLICABLE FOR DIALYSIS PATIENTS. [place], [id number] 15:44:00Referring: Dr. Duran Thomas INTRA OP IMAGING [...] time: 23 seconds. Five images. Signed: [place] Verified Date/Time: 05/15/2017 15 :44:29 Reading Location:[address] Radiology Reading Room ANTI- NUCLEAR ANTIBODY (ARIC)2017-03-28 10:37:00 Test Item Value Reference Range Comments ANTI-NUCLEAR ANTIBODY (ARIC) (BEAKER) (test Negative Negative dzca=117) HEPATITIS B SURFACE [id number] 18:33:00 Test Item Value Reference Range Comments HEPATITIS B SURFACE ANTIBODY (BEAKER) (test 678.3 mIU/mL <8.0 qywh=921) HEPATITIS A ANTIBODY, [id number] 18:33:00 Test Item Value Reference Range Comments HEPATITIS A IGG ANTIBODY (BEAKER) (test Nonreactive Nonreactive mppq=8812) IMMUNOGLOBULIN G (IGG)2017-03-27 18:04:00 Test Item Value Reference Range Comments IMMUNOGLOBULIN G (IGG) (BEAKER) (test zwsp=112) 1397 mg/dL 540-1822 HEPATIC FUNCTION [id number] 17:26:00 Test Item Value Reference Range Comments TOTAL PROTEIN (BEAKER) (test lweu=254) 7.7 gm/dL 6.0-8.3 ALBUMIN (BEAKER) (test dpmt=1027) 4.1 g/dL 3.5-5.0 BILIRUBIN TOTAL (BEAKER) (test yamz=315) 0.3 mg/dL 0.2-1.2 BILIRUBIN DIRECT (BEAKER) (test ynqg=376) 0.1 mg/dL 0.1-0.5 ALKALINE PHOSPHATASE (BEAKER) (test kyix=060) 94 U/L 40-150 AST (SGOT) (BEAKER) (test qgih=085) 24 U/L 5-34 ALT (SGPT) (BEAKER) (test qcow=160) 43 U/L 6-55 BASIC METABOLIC [id number] 17:26:00 Test Item Value Reference Range Comments SODIUM (BEAKER) (test 138 meq/L 136-145 ajia=137) POTASSIUM (BEAKER) (test 3.5 meq/L 3.5-5.1 bojh=287) CHLORIDE (BEAKER) (test 105 meq/L 98-107 fudq=164) CO2 (BEAKER) (test 25 meq/L 22-29 rehj=033) BLOOD UREA NITROGEN 13 mg/dL 7-21 (BEAKER) (test fuyq=529) CREATININE (BEAKER) (test 0.77 mg/dL 0.57-1.25 hcrt=602) GLUCOSE RANDOM (BEAKER) 95 mg/dL 70-105 (test dsbc=459) CALCIUM (BEAKER) (test 9.5 mg/dL 8.4-10.2 wonr=591) EGFR (BEAKER) (test 89 mL/min/1.73 sq m ESTIMATED GFR IS NOT khgb=9002) ACCURATE CREATININE CLEARANCE IN PREDICTING GLOMERULAR FILTRATION RATE. ESTIMATED GFR IS NOT APPLICABLE FOR DIALYSIS PATIENTS. PROTHROMBIN [id number] 17:10:00 Test Item Value Reference Range Comments PROTIME (BEAKER) (test tmum=661) 12.2 seconds 11.7-14.7 INR (BEAKER) (test xias=961) 0.9 <=5.9 RECOMMENDED COUMADIN/WARFARIN INR THERAPY RANGESSTANDARD DOSE: 2.0 - 3.0 Includes: PROPHYLAXIS forvenous thrombosis, systemic embolization; TREATMENT for venous thrombosis and/or pulmonary embolus.HIGH RISK: Target INR is 2.5-3.5 for patients with mechanical heart valves.CBC W/PLT COUNT & AUTO [id number] 17:01:00 Test Item Value Reference Range Comments WHITE BLOOD CELL COUNT (BEAKER) (test fzgn=134) 8.6 K/ L 3.5-10.5 RED BLOOD CELL COUNT (BEAKER) (test elob=550) 4.39 M/ L 3.93-5.22 HEMOGLOBIN (BEAKER) (test arkq=296) 13.4 GM/DL 11.2-15.7 HEMATOCRIT (BEAKER) (test cymz=580) 40.1 % 34.1-44.9 MEAN CORPUSCULAR VOLUME (BEAKER) (test cnyn=036) 91.3 fL 79.4-94.8 MEAN CORPUSCULAR HEMOGLOBIN (BEAKER) (test 30.5 pg 25.6-32.2 htni=733) MEAN CORPUSCULAR HEMOGLOBIN CONC (BEAKER) (test 33.4 GM/DL 32.2-35.5 wqym=977) RED CELL DISTRIBUTION WIDTH (BEAKER) (test 12.4 % 11.7-14.4 fpwu=125) PLATELET COUNT (BEAKER) (test mmzx=043) 314 K/CU MM 150-450 MEAN PLATELET VOLUME (BEAKER) (test koou=590) 10.3 fL 9.4-12.3 NUCLEATED RED BLOOD CELLS (BEAKER) (test 0 /100 WBC 0-0 ibga=274) NEUTROPHILS RELATIVE PERCENT (BEAKER) (test 44 % mypd=024) LYMPHOCYTES RELATIVE PERCENT (BEAKER) (test 42 % kkfx=034) MONOCYTES RELATIVE PERCENT (BEAKER) (test 9 % pmos=113) EOSINOPHILS RELATIVE PERCENT (BEAKER) (test 4 % rhvi=987) BASOPHILS RELATIVE PERCENT (BEAKER) (test 1 % vigd=748) NEUTROPHILS ABSOLUTE COUNT (BEAKER) (test 3.73 K/ L 1.56-6.13 nxyj=426) LYMPHOCYTES ABSOLUTE COUNT (BEAKER) (test 3.57 K/ L 1.18-3.74 lhqv=273) MONOCYTES ABSOLUTE COUNT (BEAKER) (test 0.77 K/ L 0.24-0.36 dtpg=354) EOSINOPHILS ABSOLUTE COUNT (BEAKER) (test 0.32 K/ L 0.04-0.36 hezz=405) BASOPHILS ABSOLUTE COUNT (BEAKER) (test 0.06 K/ L 0.01-0.08 rhcl=535) IMMATURE GRANULOCYTES-RELATIVE PERCENT (BEAKER) 1 % 0-1 (test tlnj=0360)
--- OUTSIDE RECORDS SUMMARY | 2018-08-05 20:07 | XMS REPORT | Clinical Summary ---
:1990 Author Organization [facility] Address [address] [place] [address] Care Team Providers Name Role Phone Terry [...] Not on file Results Not on fileafter 08/04/2017 Insurance Payer Benefit Plan / Group Subscriber ID Type Phone Address [employer] - [employer] C[employer] HMO POS QPOS xxxxxxxxxx HMO/POS Advance Directives For more information, please contact:[id number] [place], [place] [phone] Code Status Date Activated Date Inactivated Comments Full Code 05/15/2017 5:51 PM 05/18/2017 4:08 PM This code status was determined by: Patient
[2018-08-05 20:56] LABS: Absolute Lymphocytes (CBC) 3.4 K/uL (0.7-4.9); Absolute Monocytes 0.6 K/uL (0.1-1.3); Absolute Neutrophil 4.3 K/uL (1.8-8.0); Basophils % 0.5 % (0-1.3); Eosinophils % 2.5 % (0-4.4); Hematocrit 44.3 % (36.0-45.0); Lymphocytes % 39.6 % (15.3-44.8); MPV 8.5 fL (7.6-11.3); Monocytes % 7.2 % (3.3-12.3); RBC Red Blood Cell Count 4.88 M/uL (3.86-4.86)
[2018-08-05 21:13] LABS: Albumin 4.2 g/dL (3.4-5.0); Bilirubin Direct 0.1 mg/dL (0-0.2); Bilirubin Total 0.6 mg/dL (0.2-1.0); Potassium 3.6 mmol/L (3.5-5.1); Protein, Total 8.2 g/dL (6.4-8.2)
[2018-08-05] MEDS ORDERED: MORPHINE 4 MG/ML SYR ONE (22:14)
[2018-08-05] MEDS ORDERED: ONDANSETRON 4 MG/2 ML VIAL ONE (22:14)
[2018-08-05 22:40] LABS: Urine Blood TRACE (NEG); Urine Glucose NEGATIVE (NEG); Urine Protein NEGATIVE (NEG); Urine Specific Gravity 1.025 (1.005-1.030)
[2018-08-05] MEDS ORDERED: MORPHINE 2 MG/ML SYR ONE (23:36)
[2018-08-05] MEDS ORDERED: KETOROLAC 30 MG/ML INJ ONE (23:36)
--- NOTE | 2018-08-06 00:55 | ER ---
Nurse's Notes [facility] Name: Rubi Farfan Age: 28 yrs Sex: Female : 1990 Arrival Date: 08/05/2018 Time: 20:06 Bed 14 Private MD: Terry Parra B Diagnosis: Abdominal tenderness;Gastritis, unspecified Presentation: 08/05 20:29 Presenting complaint: Patient states: I am having abdominal pain that started yesterday jb4 and I am having nausea, and vomiting. 20:29 Transition of care: patient was not received from another setting of care. Onset of jb4 symptoms was August 04, 2018. Risk Assessment: Do you want to hurt yourself or someone else? Patient reports no desire to harm self or others. Initial Sepsis Screen: Does the patient meet any 2 criteria? HR > 90 bpm. Yes Does the patient have a suspected source of infection? No. Patient's initial sepsis screen is negative. 20:29 Method Of Arrival: Ambulatory jb4 20:29 Acuity: HUAN 3 jb4 20:29 Care prior to arrival: None. jb4 Triage Assessment: 20:29 General: Appears in no apparent distress. uncomfortable, Behavior is calm, cooperative, jb4 appropriate for age. Pain: Complains of pain in epigastric area Pain does not radiate. Pain currently is 8 out of 10 on a pain scale. Quality of pain is described as Pain began 1 day ago. EENT: No signs and/or symptoms were reported regarding the EENT system. Neuro: Level of Consciousness is awake, alert, obeys commands, Oriented to person, place, time, situation. Cardiovascular: Patient's skin is warm and dry. Respiratory: Airway is patent Respiratory effort is even, unlabored, Respiratory pattern is regular, symmetrical. GI: Abdomen is flat, Bowel sounds present X 4 quads. Abd is soft X 4 quads Abd is non tender in umbilical area, suprapubic area, right upper quadrant, left upper quadrant, right lower quadrant and left lower quadrant Abdomen is tender to palpation in epigastric area Reports nausea, vomiting. : No signs and/or symptoms were reported regarding the genitourinary system. Derm: Skin is intact, Skin is pink, warm \T\ dry. Musculoskeletal: Circulation, motion, and sensation intact. Historical: - Allergies: 20:29 NKA; jb4 - Home Meds: 20:29 levothyroxine 125 mcg oral tab 1 tab once daily [Active]; jb4 - PMHx: 20:29 autoimmune hepititis; gastritis; Hypertension; hyperthyroidism; Kidney stones; jb4 Migraines; graves disease; - PSHx: 20:29 ; Lithotripsy; Kidney stents; Cholecystectomy; jb4 - Immunization history:: Adult Immunizations up to date. - Social history:: Smoking status: Patient/guardian denies using tobacco, Patient/guardian denies using alcohol. - Ebola Screening: : No symptoms or risks identified at this time. Screenin: Abuse screen: Denies threats or abuse. Nutritional screening: No deficits noted. jb4 Tuberculosis screening: No symptoms or risk factors identified. Fall Risk IV access (20 points). Total Serrato Fall Scale indicates No Risk (0-24 pts). Assessment: 20:29 Reassessment: see triage assessment.. jb4 :29 Reassessment: No changes from previously documented assessment. Patient and/or family jb4 updated on plan of care and expected duration. Pain level reassessed. Patient is alert, oriented x 3, equal unlabored respirations, skin warm/dry/pink. 22:55 Reassessment: Patient appears in no apparent distress at this time. Patient and/or jb4 family updated on plan of care and expected duration. Pain level reassessed. Patient is alert, oriented x 3, equal unlabored respirations, skin warm/dry/pink. Patient states feeling better. 08/06 00:00 Reassessment: Patient appears in no apparent distress at this time. Patient and/or jb4 family updated on plan of care and expected duration. Pain level reassessed. Patient is alert, oriented x 3, equal unlabored respirations, skin warm/dry/pink. Patient states feeling better. 00:54 Reassessment: Patient appears in no apparent distress at this time. Patient and/or jb4 family updated on plan of care and expected duration. Pain level reassessed. Patient is alert, oriented x 3, equal unlabored respirations, skin warm/dry/pink. Vital Signs: 08/05 20:29 BP 140 / 95; Pulse 100; Resp 16; Temp 98.3(O); Pulse Ox 98% on R/A; Weight 83.01 kg jb4 (R); Height 5 ft. 7 in. (170.18 cm) (R); Pain 8/10; 21:00 BP 126 / 70; Pulse 76; Resp 16; Pulse Ox 98% on R/A; jb4 22:18 BP 127 / 78; Pulse 67; Resp 16; Pulse Ox 97% on R/A; jb4 23:00 BP 116 / 81; Pulse 68; Resp 16; Pulse Ox 97% on R/A; jb4 08/06 00:00 BP 113 / 82; Pulse 65; Resp 16; Pulse Ox 96% on R/A; jb4 00:30 BP 107 / 75; Pulse 69; Resp 16; Pulse Ox 96% on R/A; jb4 08/05 20:29 Body Mass Index 28.66 (83.01 kg, 170.18 cm) jb4 ED Course: 08/05 20:06 Patient arrived in ED. ds1 20:06 Terry Parra MD is Private Physician. ds1 20:29 Arm band placed on right wrist. jb4 20:29 Patient has correct armband on for positive identification. Placed in gown. Bed in low jb4 position. Call light in reach. Side rails up X 1. Pulse ox on. NIBP on. 20:38 Julián Schreiber RN is Primary Nurse. jb4 20:40 Janes Pineda MD is Attending Physician. tw4 20:43 Triage completed. jb4 20:46 Inserted saline lock: 20 gauge in right antecubital area, using aseptic technique. mt Blood collected. 22:07 Radiology exam delayed due to test not completed at this time. nj 22:15 Radiology exam delayed due to test not completed at this time. vm2 22:51 CT Abd/Pelvis - W/Contrast In Process Unspecified. EDMS 08/06 00:53 Terry Parra MD is Referral Physician. tw4 00:53 Duran Thomas MD is Referral Physician. tw4 01:07 No provider procedures requiring assistance completed. IV discontinued, intact, jb4 bleeding controlled. Administered Medications: 08/05 22:10 Drug: Zofran 4 mg Route: IVP; Site: right antecubital; jb4 22:30 Follow up: Response: No adverse reaction jb4 22:13 Drug: morphine 4 mg Route: IVP; Site: right antecubital; jb4 22:30 Follow up: Response: No adverse reaction; Pain is decreased jb4 23:25 Drug: TORadol 30 mg Route: IVP; Site: right antecubital; jb4 23:55 Follow up: Response: No adverse reaction; Pain is decreased jb4 23:26 Drug: morphine 2 mg Route: IVP; Site: right antecubital; jb4 23:55 Follow up: Response: No adverse reaction; Pain is decreased jb4 Outcome: 08/06 00:54 Discharge ordered by . tw4 01:07 Discharged to home ambulatory, with family. jb4 01:07 Condition: stable 01:07 Discharge instructions given to patient, Instructed on discharge instructions, follow up and referral plans. medication usage, Demonstrated understanding of instructions, follow-up care, medications, Prescriptions given X 2. 01:09 Patient left the ED. jb4 Signatures: Dispatcher [employer] EDCO [place] ds1 Julián Schreiber RN RN jb4 Pradip Woodward [place] 2 Noreen Alvarado mt, Terrence, MD MD tw4
--- NOTE | 2018-08-06 00:55 | EDPHYS ---
Physician Documentation [facility] Name: Rubi Farfan Age: 28 yrs Sex: Female : 1990 Arrival Date: 08/05/2018 Time: 20:06 Bed 14 Private MD: Terry Parra B ED Physician Janes Pineda HPI: 08/06 00:49 This 28 yrs old Female presents to ER via Ambulatory with complaints of tw4 Abdominal Pain. 00:49 The patient presents with abdominal pain. Onset: The symptoms/episode began/occurred tw4 today. The symptoms do not radiate. Associated signs and symptoms: none. The symptoms are described as dull. Modifying factors: The symptoms are alleviated by nothing, the symptoms are aggravated by nothing. Severity of pain: At its worst the pain was moderate in the emergency department the pain is unchanged. The patient has not experienced similar symptoms in the past. Historical: - Allergies: 08/05 20:29 NKA; jb4 - Home Meds: 20:29 levothyroxine 125 mcg oral tab 1 tab once daily [Active]; jb4 - PMHx: 20:29 autoimmune hepititis; gastritis; Hypertension; hyperthyroidism; Kidney stones; jb4 Migraines; graves disease; - PSHx: 20:29 ; Lithotripsy; Kidney stents; Cholecystectomy; jb4 - Immunization history:: Adult Immunizations up to date. - Social history:: Smoking status: Patient/guardian denies using tobacco, Patient/guardian denies using alcohol. - Ebola Screening: : No symptoms or risks identified at this time. ROS: 08/06 00:49 Constitutional: Negative for fever, chills, and weight loss, Eyes: Negative for injury, tw4 pain, redness, and discharge, Cardiovascular: Negative for chest pain, palpitations, and edema, Respiratory: Negative for shortness of breath, cough, wheezing, and pleuritic chest pain, Back: Negative for injury and pain, MS/Extremity: Negative for injury and deformity, Skin: Negative for injury, rash, and discoloration. Exam: 00:49 Constitutional: This is a well developed, well nourished patient who is awake, alert, tw4 and in no acute distress. Head/Face: Normocephalic, atraumatic. Chest/axilla: Normal chest wall appearance and motion. Nontender with no deformity. No lesions are appreciated. Cardiovascular: Regular rate and rhythm with a normal S1 and S2. No gallops, murmurs, or rubs. Normal PMI, no JVD. No pulse deficits. Respiratory: Lungs have equal breath sounds bilaterally, clear to auscultation and percussion. No rales, rhonchi or wheezes noted. No increased work of breathing, no retractions or nasal flaring. MS/ Extremity: Pulses equal, no cyanosis. Neurovascular intact. Full, normal range of motion. Neuro: Awake and alert, GCS 15, oriented to person, place, time, and situation. Cranial nerves II-XII grossly intact. Motor strength 5/5 in all extremities. Sensory grossly intact. Cerebellar exam normal. Normal gait. Vital Signs: 08/05 20:29 BP 140 / 95; Pulse 100; Resp 16; Temp 98.3(O); Pulse Ox 98% on R/A; Weight 83.01 kg jb4 (R); Height 5 ft. 7 in. (170.18 cm) (R); Pain 8/10; 21:00 BP 126 / 70; Pulse 76; Resp 16; Pulse Ox 98% on R/A; jb4 22:18 BP 127 / 78; Pulse 67; Resp 16; Pulse Ox 97% on R/A; jb4 23:00 BP 116 / 81; Pulse 68; Resp 16; Pulse Ox 97% on R/A; jb4 08/06 00:00 BP 113 / 82; Pulse 65; Resp 16; Pulse Ox 96% on R/A; jb4 00:30 BP 107 / 75; Pulse 69; Resp 16; Pulse Ox 96% on R/A; jb4 08/05 20:29 Body Mass Index 28.66 (83.01 kg, 170.18 cm) jb4 MDM: 08/05 20:40 Patient medically screened. tw4 08/06 00:49 Differential diagnosis: appendicitis, bowel obstruction, GI Bleed, Hepatitis. Data tw4 reviewed: vital signs, nurses notes. Counseling: I had a detailed discussion with the patient and/or guardian regarding: the historical points, exam findings, and any diagnostic results supporting the discharge/admit diagnosis, lab results, radiology results. Medication response: morphine relieved the patient's pain. Symptoms have resolved. Response to treatment: the patient's symptoms have markedly improved after treatment, and as a result, I will. Special discussion: Based on the patient's Hx, exam, and Dx evaluation, there is no indication for emergent surgery or inpatient Tx. It is understood by the patient/guardian that if the Sx's persist or worsen they need to return immediately for re-evaluation. I discussed with the patient/guardian in detail that at this point there is no indication for admission to the hospital. It is understood, however, that if the symptoms persist or worsen the patient needs to return immediately for re-evaluation. 08/05 20:40 Order name: Basic Metabolic Panel; Complete Time: 21:51 [facility] 08/05 21:51 Interpretation: Normal except: GFR 79. [facility] 08/05 20:40 Order name: CBC with Diff; Complete Time: 21:51 [facility] 08/05 21:51 Interpretation: Normal except: RBC 4.88. [facility] 08/05 20:40 Order name: Creatinine for Radiology; Complete Time: 21:53 [facility] 08/05 20:40 Order name: Hepatic Function; Complete Time: 21:51 [facility] 08/05 21:52 Interpretation: Normal except: GLOB 4.0. [facility] 08/05 20:40 Order name: Lipase; Complete Time: 21:53 [facility] 08/05 21:53 Interpretation: Within normal limits: LIP 127. [facility] 08/05 22:36 Order name: Urine Dipstick--Ancillary (enter results) [facility] 08/05 20:40 Order name: IV Saline Lock; Complete Time: 20:46 [facility] 08/05 20:40 Order name: Labs collected and sent; Complete Time: 20:46 [facility] 08/05 21:54 Order name: CT Abd/Pelvis - W/Contrast [facility] 08/05 22:36 Order name: Urine --Ancillary (enter results) [facility] 08/05 21:54 Order name: Urine Dipstick-Ancillary (obtain specimen); Complete Time: 22:19 [facility] 08/05 21:54 Order name: Urine Test (obtain specimen); Complete Time: 22:19 Administered Medications: 08/05 22:10 Drug: Zofran 4 mg Route: IVP; Site: right antecubital; 4 22:30 Follow up: Response: No adverse reaction jb4 22:13 Drug: morphine 4 mg Route: IVP; Site: right antecubital; jb4 22:30 Follow up: Response: No adverse reaction; Pain is decreased jb4 23:25 Drug: TORadol 30 mg Route: IVP; Site: right antecubital; jb4 23:55 Follow up: Response: No adverse reaction; Pain is decreased jb4 23:26 Drug: morphine 2 mg Route: IVP; Site: right antecubital; jb4 23:55 Follow up: Response: No adverse reaction; Pain is decreased jb4 Disposition: 08/06/18 00:54 Discharged to Home. Impression: Abdominal tenderness, Gastritis, unspecified. - Condition is Stable. - Discharge Instructions: Gastritis, Adult, [id number], Abdominal Pain, Adult, [id number]. - Prescriptions for Protonix 40 mg Oral Tablet - take 1 tablet by ORAL route once daily; 30 tablet. Zofran 4 mg Oral Tablet - take 1 tablet by ORAL route every 12 hours As needed; 20 tablet. - Family Work Release, Medication Reconciliation Form, Thank You Letter, Antibiotic Education, Prescription Opioid Use form. - Follow up: Teryr Parra MD; When: Upon discharge from the Emergency Department; Reason: If symptoms return, Recheck today's complaints, Continuance of care. Follow up: Duran Thomas MD; When: Upon discharge from the Emergency Department; Reason: If symptoms return, Recheck today's complaints, Continuance of care. - Problem is new. - Symptoms have improved. Signatures: Dispatcher [employer] EDMN Julián Schreiber RN RN jb4 Janes Pineda MD MD tw4 Corrections: (The following items were deleted from the chart) 08/06 01:09 00:54 08/06/2018 00:54 Discharged to Home. Impression: Abdominal tenderness; Gastritis, jb4 unspecified. Condition is Stable. Forms are Medication Reconciliation Form, Thank You Letter, Antibiotic Education, Prescription Opioid Use. Follow up: Terry Parra; When: Upon discharge from the Emergency Department; Reason: If symptoms return, Recheck today's complaints, Continuance of care. Follow up: Duran Thomas; When: Upon discharge from the Emergency Department; Reason: If symptoms return, Recheck today's complaints, Continuance of care. Problem is new. Symptoms have improved. tw4
[2018-08-06 01:13] VITALS: TEMP 98.3
[2018-08-06 01:17] VITALS: O2SAT 96
[2018-08-06 01:18] VITALS: BP 107/75
--- NOTE | 2018-08-06 10:40 | RAD REPORT ---
EXAM DESCRIPTION: CT - Abdomen Pelvis W Contrast - 08/06/2018 5:43 am CLINICAL HISTORY: 28 years old and is Female; ABD PAIN TECHNIQUE: Axial computed tomography images of the abdomen and pelvis with intravenous contrast. S agittal and coronal reformatted images were created and reviewed. This CT exam was performed using one or more of the following dose reduction techniques: automated exposure control, adjustment of t he mA and/or kV according to patient size, and/or use of iterative reconstruction technique. COMPARISON: No relevant prior studies available. FINDINGS: Limitations: None. Lung bases: Unremarkable. No mass. No consolidation. ABDOMEN: Liver: Fatty liver. Gallbladder and bile ducts: Cholecystectomy. No ductal dilation. Pancreas: Unremarkable. No mass. No ductal dilation. Spleen: Unremarkable. No splenomegaly. Adrenals: Unremarkable. No mass. Kidneys and ureters: Atrophic but functional left kidney. Right kidney appears normal. No hydronephrosis. Stomach and bowel: Unremarkable. No obstruction. No mucosal thickening. PELVIS: Appendix: No findings to suggest acute appendicitis. Bladder: Unremarkable. No mass. Reproductive: Bilateral fallopian coils noted. Collapsed left ovarian cyst measures about 2.3 x 1.3 cm. ABDOMEN and PELVIS: Intraperitoneal space: Unremarkable. No free air. No significant fluid collection. Bones/joints: No acute fracture. No dislocation. Soft tissues: Unremarkable. Vasculature: Unremarkable. No abdominal aortic aneurysm. Lymph nodes: Unremarkable. No enlarged lymph nodes. IMPRESSION: Small collapsed left ovarian cyst/follicle. Otherwise no acute findings. Electronically signed by: Ivana Scherer MD 08/05/2018 11:01 PM CDT Due to temporary technical issues with the PACS/Fluency reporting system, reports are being signed by the in house radiologist as a courtesy to ensure prompt reporting. The interpreting radiologist is f ully responsible for the content of the report.
== END 2018-08-06 01:09 | disposition home or self-care (01) ==
LOC: ER 20:05
DX: K29.70 Gastritis, unspecified, without bleeding (principal); I10 Essential (primary) hypertension; E05.00 Thyrotoxicosis with diffuse goiter without thyrotoxic crisis or storm; Z87.442 Personal history of urinary calculi
CPT/HCPCS: 36415; 74177; 80048; 80076; 81003; 81025; 83690; 85025; J2270; J2405; Q9967

== ENCOUNTER 2020-02-02 11:40 | Emergency (ER) | payer BC, OTHER ==
--- OUTSIDE RECORDS SUMMARY | 2020-02-02 12:12 | XMS REPORT | Clinical Summary ---
:1990 Author Organization [facility] Address [address] [place] [address] Care Team Providers Name Role Phone Crystal Parra MD Primary Care Provider Allergies No Known Allergies Medications Medication Sig Dispensed Refills Start Date End Date Status cholecalciferol, Take 1,000 Units 0 Active vitamin D3, 1,000 unit by mouth daily. capsule ondansetron (ZOFRAN) 4 Take 1 tablet (4 10 tablet 0 05/18/2017 Active MG tablet mg total) by mouth 3 (three) times daily as needed for Nausea. levothyroxine Take 150 mcg by 0 Active (SYNTHROID, LEVOTHROID) mouth Every 150 MCG tablet morning on an empty stomach. traMADol (ULTRAM) 50 mg Take 50 mg by 0 Active tablet mouth every 6 (six) hours as needed for Pain. UNKNOWN control . 0 Acti ve HYDROcodone-acetaminoph Take 1 tablet by 20 tablet 0 9 Active en (NORCO 10-325) mouth every 8 10-325 mg per tablet (eight) hours as needed. Max Daily Amount: 3 tablets Active Problems Problem Noted Date Abdominal pain 09/24/2018 Epigastric abdominal pain 08/12/2018 Acute pancreatitis 05/16/2017 Pancreatitis 05/15/2017 Epigastric pain 05/15/2017 Abnormal liver enzymes 03/27/2017 Obesity 03/27/2017 Immunity status testing 03/27/2017 Chronic abdominal pain 03/27/2017 Gastritis 03/27/2017 Family History Medical History Relation Name Comments Heart attack Father Other Father Fathers side of family (great grandmother, gra ndmother and grandmothers twi n brother of liver failure. Do not know the cause Stroke Father High blood pressure Maternal Grandmother Thyroid disease Maternal Grandmother Cancer Paternal Grandfather Liver cancer Paternal Grandfather Other Paternal Grandfather triple bypa ss Relation Name Status Comments Father Maternal Grandmother Paternal Grandfather Social History Tobacco Use Types Packs/Day Years Used Date Never Smoker Smokeless Tobacco: Never Used Alcohol Use Drinks/Week oz/Week Comments Yes rarely Sex Assigned at Date Recorded Not on file Last Filed Vital Signs Not on file Plan of Treatment Not on file Results Not on fileafter 02/01/2019 Insurance Payer Benefit Plan / Subscriber ID Effective Dates Phone Addre ss Type Group BLUE BCBS PPO POS [id number] 2018-Presen [phone] [id number] PPO CROSS/BLUE EPO CHOICE t 2 [facility] [id number] Advance Directives For more information, please contact: [phone] Code Status Date Activated Date Inactivated Comments Full Code 09/24/2018 4:40 PM 09/25/2018 1:57 PM This code status was determined by: Patient Full Code 08/12/2018 3:31 PM 08/13/2018 9:37 PM This code status was determined by: Patient Full Code 05/15/2017 5:51 PM 05/18/2017 4:08 PM This code status was determined by: Patient
--- OUTSIDE RECORDS SUMMARY | 2020-02-02 12:13 | XMS REPORT | Summary of Care ---
:1990 Author Organization [facility] [place] [address] Care Team Providers Name Role Phone Jaclyn Parra MD Primary Care Provider Reason for Visit Reason Comments Follow Up Overall doing well, no curre nt issues. Encounter Details Date Type Department Care Team Description [facility] [facility]Overall Medicine [address] doing well, no Gastroenterology [address] current issues. ) [address] [place] [address] 8th Floor, [address] [phone] [place] [address] Allergies No Known Allergiesdocumented as of this encounter (statuses as of 01/05/2020) Medications Medication Sig Dispensed Refills Start Date End Date Status tramadol (ULTRAM) 50 Take 1 Tab by 30 Tab 3 08/07/2018 Active MG tablet mouth every 6 hours as needed for Pain. Additional Information Patient not taking. Reason: PRN Med, Reported on 12/12/2019 8:35 AM Levothyroxine Sodium 125 MCG Take by mouth. 0 Active CAPS ondansetron (ZOFRAN ODT) 8 mg Take 1 Tab by mouth 30 Tab 3 08/07/2018 Active disintegrating tablet every 8 hours as needed for Nausea. Additional Information Patient not taking. Reason: PRN Med, Reported on 12/12/2019 8:35 AM documented as of this encounter (statuses as of 01/05/2020) Active Problems Not on filedocumented as of this encounter (statuses as of 01/05/2020) Social History Tobacco Use Types Packs/Day Years Used Date Never Smoker Smokeless Tobacco: Never Used Alcohol Use Drinks/Week oz/Week Comments No Sex Assigned at Date Recorded Not on file documented as of this encounter Last Filed Vital Signs Vital Sign Reading Time Taken Comments Blood Pressure - - Pulse - - Temperature - - Respiratory Rate - - Oxygen Saturation - - Inhaled Oxygen Concentration - - Weight 80.7 kg (178 lb) 12/12/2019 8:34 AM CDT Height 170.2 cm (5' 7") 12/12/2019 8:34 AM CDT Body Mass Index 27.88 12/12/2019 8:34 AM CDT documented in this encounter Progress Notes Mellissa Calix MD - 12/12/2019 8:30 AM CDT HPI(05/04/17): 29 y/o patient is here forfollow upvisit. The patient hadepigastric pain for the last 7 years.The painlast for hours, pain stops on its own, gluten- free diet did not improve the pain, patient had cholecystectomy and she had prior episodes of gallstone pancreatitis with documented elevation ofLFT. The patient noticed that here severeabdominal pain come in episodesand it is occasionally is like aspasm. EGD was done by Dr. Cordova and it showed erosions. She was started on PPI without improvement of her symptoms. The patient is here today to rule out biliary disease as a cause of her pain. Interval Hx (10/18/18): 28 y/o with a PMHx of acute pancreatitis presents to the GI clinic for a F/U appointment. Patient reports she is now doing very well. Reports pain and nausea in epigastric area, not radiating to back. No pain from eating. Radiated mainly to right side. I performed ERCP, sphincterotomy side was open, performed dilation using 10mm balloon. After procedure, had pancreatitis, but resolved. Before, pain was constant for at least 2 months. Her symptoms were suggestive of sphincter of oddi dysfunction. Interval History ( 12/12/2019) The patient is doing very well. NO acute complaint. She stated that she had no pain after sphincterotomy done last year. No acute attack of pancreatitis. Overall she is doing very well. Past Medical History: Diagnosis Date Graves disease S/P radioiodine therapy Hypothyroidism Past Surgical History: Procedure Laterality Date HX SECTION HX CHOLECYSTECTOMY HX COLONOSCOPY HX ERCP HX LITHOTRIPSY HX UPPER GASTROINTESTINAL ENDOSCOPY Current Outpatient Medications on File Prior to Visit Medication Sig Dispense Refill Levothyroxine Sodium 125 MCG CAPS Take by mouth. ondansetron (ZOFRAN ODT) 8 mg disintegrating tablet Take 1 Tab by mouth every 8 hours as needed for Nausea. (Patient not taking: Reported on 12/12/2019) 30 Tab 3 tramadol (ULTRAM) 50 MG tablet Take 1 Tab by mouth every 6 hours as needed for Pain. (Patient not taking: Reported on 12/12/2019) 30 Tab 3 No current facility-administered medications on file prior to visit. REVIEW OF SYSTEMS: RESPIRATORY: No shortness of breath, cough or sputum. NEUROLOGICAL: No headache, dizziness, syncope, paralysis, ataxia, numbness or tingling in the extremities. No change in bowel or bladder control. MUSCULOSKELETAL: No muscle, back pain, joint pain or stiffness. HEMATOLOGIC: No anemia, bleeding or bruising. LYMPHATICS: No enlarged nodes. No history of splenectomy. ENDOCRINOLOGIC: No reports of sweating, cold or heat intolerance. No polyuria or polydipsia. ALLERGIES: No history of asthma, hives, eczema or rhinitis. Vital Signs Height: 5' 7" (170.2 cm) Weight - Scale: 178 lb (80.7 kg) Height and Weight BSA (Calculated - sq m): 1.95 sq meters BMI (Calculated): 27.9 Predicted Body Weight: 135.8 Exam: General appearance: NAD, conversant Extremities: No peripheral edema or extremity lymphadenopathy Skin: Normal temperature, turgor and texture; no rash, ulcers or subcutaneous nodules Psych: Appropriate affect, alert and oriented to person, place and time Assessment: Recurrent acute attacks of pancreatitis, s/p ERCP with sphincterotomy with attack for the last year Plan: Continue to avoid alcohol and smoking encouraging healthy diet rich in antioxidants Follow up in one year documented in this encounter Plan of Treatment Date Type Specialty Care Team Description 02/20/2020 Telemedicine Gastroenterology Mellissa Calix MD [address] [address] [phone] Health Maintenance Due Date Last Done Comments TETANUS SHOT (ADULT) 02/27/2003 BMI FOLLOW UP PLAN 02/27/2006 HEPATITIS C SCREENING 02/27/2006 HIV SCREENING 02/27/2006 CERVICAL CANCER SCREENING 3 YEAR FOLLOW UP 02/27/2009 FLU VACCINE > 6 MONTHS 11/08/2019 ZOSTER VACCINE (1 of 2) 02/27/2038 documented as of this encounter Results Not on filedocumented in this encounter Visit Diagnoses Diagnosis Idiopathic acute pancreatitis without in fection or necrosis - Primary Acute recurrent pancreatitis Acute pancreatitis documented in this encounter Insurance Payer Benefit Plan / Subscriber ID Effective Dates Phone Addre ss Type Group BLUE CROSS PPO/EPO - BCBS [id number] 2018-Present [address] [place] [address] documented as of this encounter
--- OUTSIDE RECORDS SUMMARY | 2020-02-02 12:13 | XMS REPORT | Continuity of Care Document ---
:1990 Author Organization [facility] t Address [address] [place] [address] Care Team Providers Name Role Phone Terry Parra MD Primary Care Physician [phone] Alyson PRIETO Attending Clinician ALYSON SHIELDS Attending Clinician Unavailable ISAC Attending Clinician Unavailable VIDAL BURT Attending Clinician Unavailable ALYSON SHIELDS Admitting Clinician Unavailable LUCIANA COREY Admitting Clinician Unavailable Problems Condition Condition Condition Status Onset Resolution Last Treating Co mments Source Name Details Category Date Date Treatment Clinician Date Abdominal Abdominal Disease Active [facility]18 [facility] 00 [place] Epigastric Epigastric Disease Active [facility] abdominal abdominal 5-06 [facility] pain pain 00:[facility]: Medical 00 [place] Acute Acute Disease Active [facility] pancreatit pancreatit 2-07 Giselle kes - is is 00:00: Medical 00 [place] Pancreatit Pancreatit Disease Active [facility] is is 2-06 [facility] Medical 00 [place] Epigastric Epigastric Disease Active [facility] pain pain 2-06 [facility]: Medical 00 [place] Abnormal Abnormal Disease [facility] 2016[facility] - enzymes enzymes 00:00: Medical 00 [place] Obesity Obesity Disease Active 2016-[address] [facility] [address] 2-19 [facility] - 00:[facility]: Medical 00 [place] Immunity Immunity Disease Active 2016[facility] status status [facility] - testing testing 00:00: Medical 00 [place] Chronic Chronic Disease Active 2016-[address] [facility] [address] abdominal abdominal 2-19 [facility] - pain pain 00:00: Medical 00 [place] Gastritis Gastritis Disease Active 2016-[address] [facility] [address] 2-19 [facility] 00 Center Allergies, Adverse Reactions, Alerts This patient has no known allergies or adverse reactions. Family History Family Member Diagnosis Comments Start Date Stop Date Source Natural [facility] Natural father Stroke [facility] Maternal grandmother High blood [facility] pressure [facility] Maternal grandmother Thyroid disease [facility] Paternal grandfather Cancer [facility] Paternal grandfather Liver cancer [facility] Paternal grandfather Other [facility] Social History Social Habit Start Date Stop Date Quantity Comments Source Sex Assigned At [facility] Tobacco use and 2018-09-24 2018-09-[address] [facility] - exposure 00:00:00 00:00:00 [facility] Alcohol intake 2018-09-24 2018-09-24 Current drinker [facility] Mirna wong [facility] 00:[facility]:00 00:00:00 of alcohol [facility] (finding) Alcohol Comment 2017-05-14 2017-05-[address] [facility] - 00:00:00 00:00:00 [facility] Smoking Status Start Date Stop Date Source Never smoker [facility] Medications Ordered Filled Start Stop Current Ordering Indication Dosage Frequency Signature Comments Components Source Medication Medication Date Date Medication? Clinician (SIG) Name Name cholecalcif 2019 Yes 1000U QD Take 1,[address] [facility] alfreda, 6-19 Units by [facility] - vitamin D3, 11:57: mouth Medic al 1,000 unit 57 daily. Center capsule levothyroxi 2019- Yes 150ug Take [address] ne 6-19 mcg by [facility] - (SYNTHROID, 11:57: mouth Medic al LEVOTHROID) 57 Every Center 150 MCG morning on tablet an empty stomach. traMADol 2019- Yes 50mg Take [address] [facility] (ULTRAM) 50 6-19 by mouth [facility] - mg tablet 11:57: every 6 Medic al 57 (six) Center hours as needed for Pain. UNKNOWN 2019- Yes [facility] 6-19 control . [facility] - 11:57: Medical 57 Center HYDROcodone 2019-0 Yes 1{tbl} Take [address] -acetaminop 6-19 tablet by Christian victoria (NORCO 00:00: mouth Medica l 10-325) 00 every 8 Center 10-325 mg (eight) per tablet hours as needed. Max Daily Amount: 3 tablets ondansetron 2018-0 Yes 4mg Take [address] [facility] [address] (ZOFRAN) 4 2-09 tablet (4 [facility] - MG tablet 00:00: mg total) Med ical 00 by mouth 3 Center (three) times daily as needed for Nausea. Procedures This patient has no known procedures. Encounters Start End Encounter Admission Attending Care Care Encounter Source Date/Time Date/Time Type Type Clinicians Facility Department ID 2019-12-12 2019-12-12 Office MARINA Shields [id number] 44 08:07:46 09:16:44 Visit Mellissa AMBULATOR [id number] Y [id number] 325 Results Test Description Test Time Test Comments Results Result Comments Source LIPASE 2018-09-25 07:06:00 Test Item Value Reference Range Interpretation Comme nts LIPASE (BEAKER) (test code = 749) 10 U/L 8-78 BASIC METABOLIC [id number] 07:06:00 Test Item Value Reference Range Interpretation Comments SODIUM (BEAKER) 138 meq/L 136-145 (test code = 381) POTASSIUM (BEAKER) 4.0 meq/L 3.5-5.1 (test code = 379) CHLORIDE (BEAKER) 109 meq/L 98-107 H (test code = 382) CO2 (BEAKER) (test 24 meq/L 22-29 code = 355) BLOOD UREA NITROGEN 9 mg/dL 7-21 (BEAKER) (test code = 354) CREATININE (BEAKER) 0.74 mg/dL 0.57-1.25 (test code = 358) GLUCOSE RANDOM 79 mg/dL 70-105 (BEAKER) (test code = 652) CALCIUM (BEAKER) 8.3 mg/dL 8.4-10.2 L (test code = 697) EGFR (BEAKER) (test 92 mL/min/1.73 ESTIMA CHIQUI GFR IS code = 1092) sq m NOT ACCURATE CREATININE CLEARANCE IN PREDICTING GLOMERULAR FILTRATION RATE . ESTIMATED GFR I S NOT APPLICABLE FOR DIALYSIS PATIEN TS. HEPATIC FUNCTION [id number] 07:06:00 Test Item Value Reference Range Interpretation Comments TOTAL PROTEIN (BEAKER) (test code = 6.0 gm/dL 6.0-8.3 770) ALBUMIN (BEAKER) (test code = 1145) 3.4 g/dL 3.5-5.0 L BILIRUBIN TOTAL (BEAKER) (test code 0.7 mg/dL 0.2-1.2 = 377) BILIRUBIN DIRECT (BEAKER) (test 0.3 mg/dL 0.1-0.5 code = 706) ALKALINE PHOSPHATASE (BEAKER) (test 49 U/L 40-150 code = 346) AST (SGOT) (BEAKER) (test code = 13 U/L 5-34 353) ALT (SGPT) (BEAKER) (test code = 21 U/L 6-55 347) CBC W/PLT COUNT & AUTO [id number] 06:50:00 Test Item Value Reference Range Interpretation Comments WHITE BLOOD CELL COUNT (BEAKER) 5.0 K/ L 3.5-10.5 (test code = 775) RED BLOOD CELL COUNT (BEAKER) 3.83 M/ L 3.93-5.22 L (test code = 761) HEMOGLOBIN (BEAKER) (test code = 11.7 GM/DL 11.2-15.7 410) HEMATOCRIT (BEAKER) (test code = 35.3 % 34.1-44.9 411) MEAN CORPUSCULAR VOLUME (BEAKER) 92.2 fL 79.4-94.8 (test code = 753) MEAN CORPUSCULAR HEMOGLOBIN 30.5 pg 25.6-32.2 (BEAKER) (test code = 751) MEAN CORPUSCULAR HEMOGLOBIN CONC 33.1 GM/DL 32.2-35.5 (BEAKER) (test code = 752) RED CELL DISTRIBUTION WIDTH 13.0 % 11.7-14.4 (BEAKER) (test code = 412) PLATELET COUNT (BEAKER) (test 203 K/CU MM 150-450 code = 756) MEAN PLATELET VOLUME (BEAKER) 10.4 fL 9.4-12.3 (test code = 754) NUCLEATED RED BLOOD CELLS 0 /100 WBC 0-0 (BEAKER) (test code = 413) NEUTROPHILS RELATIVE PERCENT 41 % (BEAKER) (test code = 429) LYMPHOCYTES RELATIVE PERCENT 48 % (BEAKER) (test code = 430) MONOCYTES RELATIVE PERCENT 7 % (BEAKER) (test code = 431) EOSINOPHILS RELATIVE PERCENT 3 % (BEAKER) (test code = 432) BASOPHILS RELATIVE PERCENT 0 % (BEAKER) (test code = 437) NEUTROPHILS ABSOLUTE COUNT 2.07 K/ L 1.56-6.13 (BEAKER) (test code = 670) LYMPHOCYTES ABSOLUTE COUNT 2.44 K/ L 1.18-3.74 (BEAKER) (test code = 414) MONOCYTES ABSOLUTE COUNT (BEAKER) 0.34 K/ L 0.24-0.36 (test code = 415) EOSINOPHILS ABSOLUTE COUNT 0.15 K/ L 0.04-0.36 (BEAKER) (test code = 416) BASOPHILS ABSOLUTE COUNT (BEAKER) 0.02 K/ L 0.01-0.08 (test code = 417) IMMATURE GRANULOCYTES-RELATIVE 0 % 0-1 PERCENT (BEAKER) (test code = 2801) COMPREHENSIVE METABOLIC [id number] 23:35:00 Test Item Value Reference Range Interpretation Comments TOTAL PROTEIN 6.6 gm/dL 6.0-8.3 (BEAKER) (test code = 770) ALBUMIN (BEAKER) 3.7 g/dL 3.5-5.0 (test code = 1145) ALKALINE PHOSPHATASE 51 U/L 40-150 (BEAKER) (test code = 346) BILIRUBIN TOTAL 0.7 mg/dL 0.2-1.2 (BEAKER) (test code = 377) SODIUM (BEAKER) (test 136 meq/L 136-145 code = 381) POTASSIUM (BEAKER) 3.9 meq/L 3.5-5.1 (test code = 379) CHLORIDE (BEAKER) 107 meq/L 98-107 (test code = 382) CO2 (BEAKER) (test 22 meq/L 22-29 code = 355) BLOOD UREA NITROGEN 12 mg/dL 7-21 (BEAKER) (test code = 354) CREATININE (BEAKER) 0.77 mg/dL 0.57-1.25 (test code = 358) GLUCOSE RANDOM 94 mg/dL 70-105 (BEAKER) (test code = 652) CALCIUM (BEAKER) 8.7 mg/dL 8.4-10.2 (test code = 697) AST (SGOT) (BEAKER) 15 U/L 5-34 (test code = 353) ALT (SGPT) (BEAKER) 22 U/L 6-55 (test code = 347) EGFR (BEAKER) (test 88 mL/min/1.73 ESTIMA CHIQUI GFR IS code = 1092) sq m NOT ACCURATE CREATININE CLEARANCE IN PREDICTING GLOMERULAR FILTRATION RATE . ESTIMATED GFR I S NOT APPLICABLE FOR DIALYSIS PATIEN TS. [id number] 23:35:00 Test Item Value Reference Range Interpretation Comments LIPASE (BEAKER) (test code = 749) 11 U/L 8-78 PROTHROMBIN [id number] 22:55:00 Test Item Value Reference Range Interpretation Comments PROTIME (BEAKER) (test code = 13.6 seconds 11.9-14.2 759) INR (BEAKER) (test code = 370) 1.1 <=5.9 Effective 09/04/2018: PT Reference Range ChangeNew: 11.9-14.2 Previous: 11.7- 14.7RECOMMENDED COUMADIN/WARFARIN INR THERAPY RANGESSTANDARD DOSE: 2.0-3.0 Includes: PROPHYLAXIS for venous thrombosis, systemic embolization; TREATMENT for venous thrombosis and/or pulmonary embolus.HIGH RISK: Target INR is2.5-3.5 for patients wiht mechanical heart valves.CBC W/PLT COUNT & AUTO [id number] 22:46:00 Test Item Value Reference Range Interpretation Comments WHITE BLOOD CELL COUNT (BEAKER) 6.7 K/ L 3.5-10.5 (test code = 775) RED BLOOD CELL COUNT (BEAKER) 3.98 M/ L 3.93-5.22 (test code = 761) HEMOGLOBIN (BEAKER) (test code = 12.2 GM/DL 11.2-15.7 410) HEMATOCRIT (BEAKER) (test code = 35.9 % 34.1-44.9 411) MEAN CORPUSCULAR VOLUME (BEAKER) 90.2 fL 79.4-94.8 (test code = 753) MEAN CORPUSCULAR HEMOGLOBIN 30.7 pg 25.6-32.2 (BEAKER) (test code = 751) MEAN CORPUSCULAR HEMOGLOBIN CONC 34.0 GM/DL 32.2-35.5 (BEAKER) (test code = 752) RED CELL DISTRIBUTION WIDTH 12.7 % 11.7-14.4 (BEAKER) (test code = 412) PLATELET COUNT (BEAKER) (test 228 K/CU MM 150-450 code = 756) MEAN PLATELET VOLUME (BEAKER) 10.2 fL 9.4-12.3 (test code = 754) NUCLEATED RED BLOOD CELLS 0 /100 WBC 0-0 (BEAKER) (test code = 413) NEUTROPHILS RELATIVE PERCENT 60 % (BEAKER) (test code = 429) LYMPHOCYTES RELATIVE PERCENT 31 % (BEAKER) (test code = 430) MONOCYTES RELATIVE PERCENT 7 % (BEAKER) (test code = 431) EOSINOPHILS RELATIVE PERCENT 1 % (BEAKER) (test code = 432) BASOPHILS RELATIVE PERCENT 0 % (BEAKER) (test code = 437) NEUTROPHILS ABSOLUTE COUNT 4.00 K/ L 1.56-6.13 (BEAKER) (test code = 670) LYMPHOCYTES ABSOLUTE COUNT 2.08 K/ L 1.18-3.74 (BEAKER) (test code = 414) MONOCYTES ABSOLUTE COUNT (BEAKER) 0.48 K/ L 0.24-0.36 H (test code = 415) EOSINOPHILS ABSOLUTE COUNT 0.08 K/ L 0.04-0.36 (BEAKER) (test code = 416) BASOPHILS ABSOLUTE COUNT (BEAKER) 0.02 K/ L 0.01-0.08 (test code = 417) IMMATURE GRANULOCYTES-RELATIVE 0 % 0-1 PERCENT (BEAKER) (test code = 2801) FL, [id number] 09:39:00Referring: Dr. Duran Oropeza for exam:- >acute recurrent pancreatitisFINAL REPORT History: Pancreatitis. FINDINGS: Intraprocedural fluoroscopy wasprovided for a total of 1 minute and 12 seconds during an ERCP. A total of four spot digital images were saved to PACS. These images show selective cannulization and injection of contrast into the common bile duct. Balloon sweep of the duct appears to have been performed. Surgical clips indicate priorcholecystectomy. Limited evaluation is otherwise unremarkable. No radiologist was present for the procedure. Signed: Cameron Zuniga MDReport Verified Date/Time: 09/24/2018 09:39:08 Reading Location: [address] Radiology Reading Room MR, ABDOMEN, [id number] 16:40:00 Referring: Dr. Duran Reaves SweattFINAL REPORT TECHNIQUE: MRI of the abdomen and MRCP WITHOUT intravenous contrast. 3-D volume reconstructions were obtained to evaluate the biliary ductal system. INDICATION: Cholelithiasis. COMPARISON: Ultrasound from 08/12/2018. ERCP from 05/15/2017 FINDINGS: ABSENCE OF INTRAVENOUS CONTRAST DECREASES SENSITIVITY FOR DETECTION OF FOCAL LESIONS AND VASCULAR PATHOLOGY. LOWER THORAX:Unremarkable. LIVER: No hepatic signal abnormality. No focal hepatic lesions. BILIARY: Prior cholecys tectomy. No biliary ductal dilatation or filling defect. The common bile duct measures 0.6 cm in diameter. SPLEEN: No splenomegaly.PANCREAS: No focal masses or ductal dilatation. ADRENALS: No adrenal nodules.KIDNEYS/URETERS: No hydronephrosis or solid mass lesions. 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 PERITONEUM/RETROPERITONEUM: No free fluid.LYMPH NODES: No lymphadenopathy.VESSELS: Unremarkable. GI TRACT: No distention or wall thickening. BONES AND SOFT TISSUES: Unremarkable. IMPRESSION: The common bile duct is normal in caliber without filling defects. Signed: Garret Mcclain MDReport Verified Date/Time: 08/13/2018 16:40:14 Reading Location: [facility] C013Y CT Body Reading Room BASI METABOLIC [id number] 07:09:00 Test Item Value Reference Range Interpretation Comments SODIUM (BEAKER) 138 meq/L 136-145 (test code = 381) POTASSIUM (BEAKER) 3.5 meq/L 3.5-5.1 (test code = 379) CHLORIDE (BEAKER) 106 meq/L 98-107 (test code = 382) CO2 (BEAKER) (test 28 meq/L 22-29 code = 355) BLOOD UREA NITROGEN 8 mg/dL 7-21 (BEAKER) (test code = 354) CREATININE (BEAKER) 0.74 mg/dL 0.57-1.25 (test code = 358) GLUCOSE RANDOM 82 mg/dL 70-105 (BEAKER) (test code = 652) CALCIUM (BEAKER) 8.9 mg/dL 8.4-10.2 (test code = 697) EGFR (BEAKER) (test 92 mL/min/1.73 ESTIMA CHIQUI GFR IS code = 1092) sq m NOT ACCURATE CREATININE CLEARANCE IN PREDICTING GLOMERULAR FILTRATION RATE . ESTIMATED GFR I S NOT APPLICABLE FOR DIALYSIS PATIEN TS. CBC W/PLT COUNT & AUTO [id number] 06:59:00 Test Item Value Reference Range Interpretation Comments WHITE BLOOD CELL COUNT (BEAKER) 4.8 K/ L 3.5-10.5 (test code = 775) RED BLOOD CELL COUNT (BEAKER) 4.22 M/ L 3.93-5.22 (test code = 761) HEMOGLOBIN (BEAKER) (test code = 13.1 GM/DL 11.2-15.7 410) HEMATOCRIT (BEAKER) (test code = 38.4 % 34.1-44.9 411) MEAN CORPUSCULAR VOLUME (BEAKER) 91.0 fL 79.4-94.8 (test code = 753) MEAN CORPUSCULAR HEMOGLOBIN 31.0 pg 25.6-32.2 (BEAKER) (test code = 751) MEAN CORPUSCULAR HEMOGLOBIN CONC 34.1 GM/DL 32.2-35.5 (BEAKER) (test code = 752) RED CELL DISTRIBUTION WIDTH 12.7 % 11.7-14.4 (BEAKER) (test code = 412) PLATELET COUNT (BEAKER) (test 190 K/CU MM 150-450 code = 756) MEAN PLATELET VOLUME (BEAKER) 10.7 fL 9.4-12.3 (test code = 754) NUCLEATED RED BLOOD CELLS 0 /100 WBC 0-0 (BEAKER) (test code = 413) NEUTROPHILS RELATIVE PERCENT 36 % (BEAKER) (test code = 429) LYMPHOCYTES RELATIVE PERCENT 50 % (BEAKER) (test code = 430) MONOCYTES RELATIVE PERCENT 8 % (BEAKER) (test code = 431) EOSINOPHILS RELATIVE PERCENT 5 % (BEAKER) (test code = 432) BASOPHILS RELATIVE PERCENT 0 % (BEAKER) (test code = 437) NEUTROPHILS ABSOLUTE COUNT 1.74 K/ L 1.56-6.13 (BEAKER) (test code = 670) LYMPHOCYTES ABSOLUTE COUNT 2.40 K/ L 1.18-3.74 (BEAKER) (test code = 414) MONOCYTES ABSOLUTE COUNT (BEAKER) 0.37 K/ L 0.24-0.36 H (test code = 415) EOSINOPHILS ABSOLUTE COUNT 0.25 K/ L 0.04-0.36 (BEAKER) (test code = 416) BASOPHILS ABSOLUTE COUNT (BEAKER) 0.02 K/ L 0.01-0.08 (test code = 417) IMMATURE GRANULOCYTES-RELATIVE 0 % 0-1 PERCENT (BEAKER) (test code = 2801) U/S, ABDOMINAL, [id number] 14:44:00Referring: Dr. Duran Reaves SweattAbdomen limited area? Add comment if clarification is needed.->Selena erReason for exam:->ABDOMINAL PAINFINAL REPORT Right Upper Quadrant Ultrasound Clinical Diagnosis: Abdomen pain Comparison: No comparison Technique: Multiple transaxial and longitudinal images were obtained through the right upper quadrant with real time ultrasonography. Five mHz transducer was utilized. 48 images were submitted for interpretation. Report:Liver: The liver measures 14.2 cm in the right midaxillary line. There are no focal masses. The echogenicity is within normal limits.Gallbladder: The gallbladder surgically absentBiliary tree: There is no evidence of intra or extra hepatic biliary ductal dilatation. The common bile duct measures two mm.Portal vein: The portal vein measures 12 mm. Ascites: NegativePleural Effusion: NegativeRight kidney: The right kidney measures 10.3 cm in length w ithout evidence of hydronephrosis.Aorta and IVC: Midline abdominal structures and not well visualized. Maximum transverse dimension is 1.9 cm proximally Impression:Status post cholecystectomy. Otherwise unremarkable right upper quadrant ultrasound Signed: Glo Herrera Verified Date/Time: 09/2018 14:44:03 Reading Location: [address] Ultrasound Reading Room LIPASE 2018-08-12 10:24:00 Test Item Value Reference Range Interpretation Comments LIPASE (BEAKER) (test code = 749) 11 U/L 8-78 BASIC METABOLIC [id number] 10:24:00 Test Item Value Reference Range Interpretation Comments SODIUM (BEAKER) 140 meq/L 136-145 (test code = 381) POTASSIUM (BEAKER) 3.3 meq/L 3.5-5.1 L (test code = 379) CHLORIDE (BEAKER) 105 meq/L 98-107 (test code = 382) CO2 (BEAKER) (test 26 meq/L 22-29 code = 355) BLOOD UREA NITROGEN 10 mg/dL 7-21 (BEAKER) (test code = 354) CREATININE (BEAKER) 0.83 mg/dL 0.57-1.25 (test code = 358) GLUCOSE RANDOM 100 mg/dL 70-105 (BEAKER) (test code = 652) CALCIUM (BEAKER) 9.6 mg/dL 8.4-10.2 (test code = 697) EGFR (BEAKER) (test 81 mL/min/1.73 ESTIMA CHIQUI GFR IS code = 1092) sq m NOT ACCURATE CREATININE CLEARANCE IN PREDICTING GLOMERULAR FILTRATION RATE . ESTIMATED GFR I S NOT APPLICABLE FOR DIALYSIS PATIEN TS. HEPATIC FUNCTION [id number] 10:24:00 Test Item Value Reference Range Interpretation Comments TOTAL PROTEIN (BEAKER) (test code = 7.6 gm/dL 6.0-8.3 770) ALBUMIN (BEAKER) (test code = 1145) 4.3 g/dL 3.5-5.0 BILIRUBIN TOTAL (BEAKER) (test code 0.5 mg/dL 0.2-1.2 = 377) BILIRUBIN DIRECT (BEAKER) (test 0.2 mg/dL 0.1-0.5 code = 706) ALKALINE PHOSPHATASE (BEAKER) (test 65 U/L 40-150 code = 346) AST (SGOT) (BEAKER) (test code = 24 U/L 5-34 353) ALT (SGPT) (BEAKER) (test code = 28 U/L 6-55 347) CBC W/PLT COUNT & AUTO [id number] 10:04:00 Test Item Value Reference Range Interpretation Comments WHITE BLOOD CELL COUNT (BEAKER) 6.0 K/ L 3.5-10.5 (test code = 775) RED BLOOD CELL COUNT (BEAKER) 4.85 M/ L 3.93-5.22 (test code = 761) HEMOGLOBIN (BEAKER) (test code = 15.0 GM/DL 11.2-15.7 410) HEMATOCRIT (BEAKER) (test code = 43.3 % 34.1-44.9 411) MEAN CORPUSCULAR VOLUME (BEAKER) 89.3 fL 79.4-94.8 (test code = 753) MEAN CORPUSCULAR HEMOGLOBIN 30.9 pg 25.6-32.2 (BEAKER) (test code = 751) MEAN CORPUSCULAR HEMOGLOBIN CONC 34.6 GM/DL 32.2-35.5 (BEAKER) (test code = 752) RED CELL DISTRIBUTION WIDTH 12.6 % 11.7-14.4 (BEAKER) (test code = 412) PLATELET COUNT (BEAKER) (test 227 K/CU MM 150-450 code = 756) MEAN PLATELET VOLUME (BEAKER) 10.6 fL 9.4-12.3 (test code = 754) NUCLEATED RED BLOOD CELLS 0 /100 WBC 0-0 (BEAKER) (test code = 413) NEUTROPHILS RELATIVE PERCENT 54 % (BEAKER) (test code = 429) LYMPHOCYTES RELATIVE PERCENT 35 % (BEAKER) (test code = 430) MONOCYTES RELATIVE PERCENT 7 % (BEAKER) (test code = 431) EOSINOPHILS RELATIVE PERCENT 4 % (BEAKER) (test code = 432) BASOPHILS RELATIVE PERCENT 0 % (BEAKER) (test code = 437) NEUTROPHILS ABSOLUTE COUNT 3.21 K/ L 1.56-6.13 (BEAKER) (test code = 670) LYMPHOCYTES ABSOLUTE COUNT 2.11 K/ L 1.18-3.74 (BEAKER) (test code = 414) MONOCYTES ABSOLUTE COUNT (BEAKER) 0.42 K/ L 0.24-0.36 H (test code = 415) EOSINOPHILS ABSOLUTE COUNT 0.23 K/ L 0.04-0.36 (BEAKER) (test code = 416) BASOPHILS ABSOLUTE COUNT (BEAKER) 0.02 K/ L 0.01-0.08 (test code = 417) IMMATURE GRANULOCYTES-RELATIVE 0 % 0-1 PERCENT (BEAKER) (test code = 2801) URINALYSIS W/ REFLEX URINE [id number] 10:00:00 Test Item Value Reference Range Interpretation Comments COLOR (BEAKER) (test code = 470) Yellow CLARITY (BEAKER) (test code = 469) Hazy SPECIFIC GRAVITY UA (BEAKER) (test 1.029 1.001-1.035 code = 468) PH UA (BEAKER) (test code = 467) 6.0 5.0-8.0 PROTEIN UA (BEAKER) (test code = 50 mg/dL Negative A 464) GLUCOSE UA (BEAKER) (test code = Negative Negative 365) KETONES UA (BEAKER) (test code = Negative Negative 371) BILIRUBIN UA (BEAKER) (test code = Negative Negative 462) BLOOD UA (BEAKER) (test code = 461) Large Negative A NITRITE UA (BEAKER) (test code = Negative Negative 465) LEUKOCYTE ESTERASE UA (BEAKER) Moderate Negative A (test code = 466) UROBILINOGEN UA (BEAKER) (test code 3.0 mg/dL 0.2-1.0 H = 463) RBC UA (BEAKER) (test code = 519) 383 /HPF WBC UA (BEAKER) (test code = 520) 15 /HPF MUCUS (BEAKER) (test code = 1574) Many SOURCE(BEAKER) (test code = 2795) SCREEN, [id number] 09:53:00 Test Item Value Reference Range Interpretation Comments TEST URINE (BEAKER) (test Negative code = 583) [id number] 10:51:00 Test Item Value Reference Range Interpretation Comments LIPASE (BEAKER) (test code = 749) 16 U/L 8-78 COMPREHENSIVE METABOLIC [id number] 10:51:00 Test Item Value Reference Range Interpretation Comments TOTAL PROTEIN 6.3 gm/dL 6.0-8.3 (BEAKER) (test code = 770) ALBUMIN (BEAKER) 3.4 g/dL 3.5-5.0 L (test code = 1145) ALKALINE PHOSPHATASE 74 U/L 40-150 (BEAKER) (test code = 346) BILIRUBIN TOTAL 0.6 mg/dL 0.2-1.2 (BEAKER) (test code = 377) SODIUM (BEAKER) (test 139 meq/L 136-145 code = 381) POTASSIUM (BEAKER) 3.5 meq/L 3.5-5.1 (test code = 379) CHLORIDE (BEAKER) 107 meq/L 98-107 (test code = 382) CO2 (BEAKER) (test 26 meq/L 22-29 code = 355) BLOOD UREA NITROGEN 7 mg/dL 7-21 (BEAKER) (test code = 354) CREATININE (BEAKER) 0.69 mg/dL 0.57-1.25 (test code = 358) GLUCOSE RANDOM 92 mg/dL 70-105 (BEAKER) (test code = 652) CALCIUM (BEAKER) 8.4 mg/dL 8.4-10.2 (test code = 697) AST (SGOT) (BEAKER) 25 U/L 5-34 (test code = 353) ALT (SGPT) (BEAKER) 44 U/L 6-55 (test code = 347) EGFR (BEAKER) (test 101 ESTIMATE D GFR IS code = 1092) mL/min/1.73 sq NOT ACCURA TE m CREATININE CLEARANCE IN PREDICTING GLOMERULAR FILTRATION RATE . ESTIMATED GFR I S NOT APPLICABLE FOR DIALYSIS PATIEN TS. [id number] 19:35:00 Test Item Value Reference Range Interpretation Comments LIPASE (BEAKER) (test code = 749) 233 U/L 8-78 H COMPREHENSIVE METABOLIC [id number] 19:35:00 Test Item Value Reference Range Interpretation Comments TOTAL PROTEIN 6.6 gm/dL 6.0-8.3 (BEAKER) (test code = 770) ALBUMIN (BEAKER) 3.6 g/dL 3.5-5.0 (test code = 1145) ALKALINE PHOSPHATASE 82 U/L 40-150 (BEAKER) (test code = 346) BILIRUBIN TOTAL 0.4 mg/dL 0.2-1.2 (BEAKER) (test code = 377) SODIUM (BEAKER) (test 136 meq/L 136-145 code = 381) POTASSIUM (BEAKER) 4.0 meq/L 3.5-5.1 (test code = 379) CHLORIDE (BEAKER) 105 meq/L 98-107 (test code = 382) CO2 (BEAKER) (test 27 meq/L 22-29 code = 355) BLOOD UREA NITROGEN 11 mg/dL 7-21 (BEAKER) (test code = 354) CREATININE (BEAKER) 0.76 mg/dL 0.57-1.25 (test code = 358) GLUCOSE RANDOM 109 mg/dL 70-105 H (BEAKER) (test code = 652) CALCIUM (BEAKER) 9.0 mg/dL 8.4-10.2 (test code = 697) AST (SGOT) (BEAKER) 30 U/L 5-34 (test code = 353) ALT (SGPT) (BEAKER) 47 U/L 6-55 (test code = 347) EGFR (BEAKER) (test 90 mL/min/1.73 ESTIMA CHIQUI GFR IS code = 1092) sq m NOT ACCURATE CREATININE CLEARANCE IN PREDICTING GLOMERULAR FILTRATION RATE . ESTIMATED GFR I S NOT APPLICABLE FOR DIALYSIS PATIEN TS. [place], [id number] 15:44:00Referring: Dr. Duran Thomas INTRA OP IMAGING [...] time: 23 seconds. Five images. Signed: [facility] Verified Date/Time: 05/15/2017 15:44:29 Reading Location:[address] Radiology Reading Room ANTI- NUCLEAR ANTIBODY (ARIC)2017-03-28 10:37:00 Test Item Value Reference Range Interpretation Comments ANTI-NUCLEAR ANTIBODY (ARIC) (BEAKER) Negative Negative (test code = 418) HEPATITIS B SURFACE [id number] 18:33:00 Test Item Value Reference Range Interpretation Comments HEPATITIS B SURFACE ANTIBODY 678.3 mIU/mL <8.0 H (BEAKER) (test code = 647) HEPATITIS A ANTIBODY, [id number] 18:33:00 Test Item Value Reference Range Interpretation Comments HEPATITIS A IGG ANTIBODY (BEAKER) Nonreactive Nonreactive (test code = 2797) IMMUNOGLOBULIN G (IGG)2017-03-27 18:04:00 Test Item Value Reference Range Interpretation Comments IMMUNOGLOBULIN G (IGG) (BEAKER) 1397 mg/dL 540-1822 (test code = 427) HEPATIC FUNCTION [id number] 17:26:00 Test Item Value Reference Range Interpretation Comments TOTAL PROTEIN (BEAKER) (test code = 7.7 gm/dL 6.0-8.3 770) ALBUMIN (BEAKER) (test code = 1145) 4.1 g/dL 3.5-5.0 BILIRUBIN TOTAL (BEAKER) (test code 0.3 mg/dL 0.2-1.2 = 377) BILIRUBIN DIRECT (BEAKER) (test 0.1 mg/dL 0.1-0.5 code = 706) ALKALINE PHOSPHATASE (BEAKER) (test 94 U/L 40-150 code = 346) AST (SGOT) (BEAKER) (test code = 24 U/L 5-34 353) ALT (SGPT) (BEAKER) (test code = 43 U/L 6-55 347) BASIC METABOLIC [id number] 17:26:00 Test Item Value Reference Range Interpretation Comments SODIUM (BEAKER) 138 meq/L 136-145 (test code = 381) POTASSIUM (BEAKER) 3.5 meq/L 3.5-5.1 (test code = 379) CHLORIDE (BEAKER) 105 meq/L 98-107 (test code = 382) CO2 (BEAKER) (test 25 meq/L 22-29 code = 355) BLOOD UREA NITROGEN 13 mg/dL 7-21 (BEAKER) (test code = 354) CREATININE (BEAKER) 0.77 mg/dL 0.57-1.25 (test code = 358) GLUCOSE RANDOM 95 mg/dL 70-105 (BEAKER) (test code = 652) CALCIUM (BEAKER) 9.5 mg/dL 8.4-10.2 (test code = 697) EGFR (BEAKER) (test 89 mL/min/1.73 ESTIMA CHIQUI GFR IS code = 1092) sq m NOT ACCURATE CREATININE CLEARANCE IN PREDICTING GLOMERULAR FILTRATION RATE . ESTIMATED GFR I S NOT APPLICABLE FOR DIALYSIS PATIEN TS. PROTHROMBIN TIME/[id number] 17:10:00 Test Item Value Reference Range Interpretation Comments PROTIME (BEAKER) (test code = 12.2 seconds 11.7-14.7 759) INR (BEAKER) (test code = 370) 0.9 <=5.9 RECOMMENDED COUMADIN/WARFARIN INR THERAPY RANGESSTANDARD DOSE: 2.0 - 3.0 Includes: PROPHYLAXIS forvenous thrombosis, systemic embolization; TREATMENT for venous thrombosis and/or pulmonary embolus.HIGH RISK: Target INR is 2.5-3.5 for patients with mechanical heart valves.CBC W/PLT COUNT & AUTO DIFFERENTIAL 2017-03-27 17:01:00 Test Item Value Reference Range Interpretation Comments WHITE BLOOD CELL COUNT (BEAKER) 8.6 K/ L 3.5-10.5 (test code = 775) RED BLOOD CELL COUNT (BEAKER) 4.39 M/ L 3.93-5.22 (test code = 761) HEMOGLOBIN (BEAKER) (test code = 13.4 GM/DL 11.2-15.7 410) HEMATOCRIT (BEAKER) (test code = 40.1 % 34.1-44.9 411) MEAN CORPUSCULAR VOLUME (BEAKER) 91.3 fL 79.4-94.8 (test code = 753) MEAN CORPUSCULAR HEMOGLOBIN 30.5 pg 25.6-32.2 (BEAKER) (test code = 751) MEAN CORPUSCULAR HEMOGLOBIN CONC 33.4 GM/DL 32.2-35.5 (BEAKER) (test code = 752) RED CELL DISTRIBUTION WIDTH 12.4 % 11.7-14.4 (BEAKER) (test code = 412) PLATELET COUNT (BEAKER) (test 314 K/CU MM 150-450 code = 756) MEAN PLATELET VOLUME (BEAKER) 10.3 fL 9.4-12.3 (test code = 754) NUCLEATED RED BLOOD CELLS 0 /100 WBC 0-0 (BEAKER) (test code = 413) NEUTROPHILS RELATIVE PERCENT 44 % (BEAKER) (test code = 429) LYMPHOCYTES RELATIVE PERCENT 42 % (BEAKER) (test code = 430) MONOCYTES RELATIVE PERCENT 9 % (BEAKER) (test code = 431) EOSINOPHILS RELATIVE PERCENT 4 % (BEAKER) (test code = 432) BASOPHILS RELATIVE PERCENT 1 % (BEAKER) (test code = 437) NEUTROPHILS ABSOLUTE COUNT 3.73 K/ L 1.56-6.13 (BEAKER) (test code = 670) LYMPHOCYTES ABSOLUTE COUNT 3.57 K/ L 1.18-3.74 (BEAKER) (test code = 414) MONOCYTES ABSOLUTE COUNT (BEAKER) 0.77 K/ L 0.24-0.36 H (test code = 415) EOSINOPHILS ABSOLUTE COUNT 0.32 K/ L 0.04-0.36 (BEAKER) (test code = 416) BASOPHILS ABSOLUTE COUNT (BEAKER) 0.06 K/ L 0.01-0.08 (test code = 417) IMMATURE GRANULOCYTES-RELATIVE 1 % 0-1 PERCENT (BEAKER) (test code = 2801)
[2020-02-02 13:26] LABS: Urine Blood NEGATIVE (NEG); Urine Glucose NEGATIVE (NEG); Urine Protein NEGATIVE (NEG); Urine Specific Gravity 1.015 (1.005-1.030); Urine pH 5.5 (5.0-7.0)
--- NOTE | 2020-02-02 14:28 | ER ---
Nurse's Notes [facility] Name: Rubi Farfan Age: 29 yrs Sex: Female : 1990 Arrival Date: 02/02/2020 Time: 11:41 Bed Waiting Private MD: Terry Parra B Diagnosis: Presentation: 02/01 12:18 Chief complaint: Patient states: Epigastric pain x 5 days. Hx of chronic pancreatitis. ca1 GI instructed clear liquid diet since Sunday. [place] better, had dinner last night, today pain has gotten worse. Denies N/V/D. Denies fever. Coronavirus screen: Client denies travel out of the [place] in the last 14 days. At this time, the client does not indicate any symptoms associated with coronavirus-19. The client reports previous COVID testing was negative. Date of collection: August 2019. Ebola Screen: Patient negative for fever greater than or equal to 101.5 degrees Fahrenheit, and additional compatible Ebola Virus Disease symptoms Patient denies exposure to infectious person. Patient denies travel to an Ebola-affected area in the 21 days before illness onset. No symptoms or risks identified at this time. Initial Sepsis Screen: Does the patient meet any 2 criteria? No. Patient's initial sepsis screen is negative. Does the patient have a suspected source of infection? No. Patient's initial sepsis screen is negative. Risk Assessment: Do you want to hurt yourself or someone else? Patient reports no desire to harm self or others. Onset of symptoms was February 02, 2020. 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 - Social history:: Smoking status: Patient denies any tobacco usage or history of. Vital Signs: 12:18 BP 134 / 93; Pulse 103; Resp 16 S; Temp 99(TE); Pulse Ox 98% on R/A; Weight 79.38 kg ca1 (R); Height 5 ft. 7 in. (170.18 cm) (R); Pain 9/10; 12:18 Body Mass Index 27.41 (79.38 kg, 170.18 cm) ca1 ED Course: 11:41 Patient arrived in ED. ag5 11:42 Terry Parra MD is Private Physician. ag5 12:20 Triage completed. ca1 12:22 Arm band placed on right wrist. ca1 14:14 Patient's name was called from ER [employer]. No response. Unable to locate patient. Will ca1 disposition as left without being seen by a provider. Administered Medications: No medications were administered Outcome: 14:27 Patient left the ED. ca1 Signatures: Lizabeth Godwin RN RN ca1 Juan Farris ag5 Corrections: (The following items were deleted from the chart) 12:23 12:18 BP 145 / 106; Pulse 103bpm; Resp 16bpm; Spontaneous; Pulse Ox 98% RA; Temp 99F ca1 Temporal; 79.38 kg Reported; Height 5 ft. 7 in. Reported; BMI: 27.4; Pain 9/10; ca1 14:14 14:14 Patient's name was called from ER [employer]. No response. Unable to locate patient. ca1 Will disposition as left without being seen by a provider. ca1 14:14 14:14 Patient's name was called from ER [employer]. No response. ca1 ca1
[2020-02-02 14:56] VITALS: BP 134/93; TEMP 99; O2SAT 98
== END 2020-02-02 14:27 | disposition left against medical advice (07) ==
LOC: ER 11:40
DX: Z53.21 Procedure and treatment not carried out due to patient leaving prior to being seen by health care provider (principal)
CPT/HCPCS: 81003; 81025; 99281

== ENCOUNTER 2022-04-17 23:16 | Emergency (ER) | payer BC ==
--- OUTSIDE RECORDS SUMMARY | 2022-04-17 23:22 | XMS REPORT | Continuity of Care Document ---
:1990 Author Organization [facility] t Address [address] [place] [address] Care Team Providers Name Role Phone PILAR MERLOS Primary Care Physician Unavailable MELLISSA SHIELDS Attending Clinician Unavailable JOSE ANGEL BURTON Attending Clinician Unavailable Jose Angel Burton MD Attending Clinician Radha Villafana MD Attending Clinician [phone] Christiano Sahni MD Attending Clinician [phone] CHRISTIANO SAHNI Attending Clinician Unavailable Yael Villafuerte MD Attending Clinician Cassie Hussein Attending Clinician Zaid Butler MD Attending Clinician Lorna Velasquez MD Attending Clinician Marlena Cespedes MD Attending Clinician [phone] MARLENA CESPEDES Attending Clinician Unavailable DARIEN RAYMUNDO Attending Clinician Unavailable ZAID BUTLER Attending Clinician Unavailable Duran Raya MD Attending Clinician [phone] [place] [address] Ct Room Attending Clinician Unavailable DURAN RAYA Attending Clinician Unavailable XAVI VAZQUEZ Attending Clinician Unavailable Fartun Dickens MD Attending Clinician Xavi Vazquez MD Attending Clinician FARTUN DICKENS Attending Clinician Unavailable Mellissa Shields MD Attending Clinician ALICE GAO Attending Clinician Unavailable AMANUEL CHAU Attending Clinician Unavailable TASHIA BURT Attending Clinician Unavailable MELLISSA SHIELDS Admitting Clinician Unavailable RADHA VILLAFANA Admitting Clinician Unavailable MARLENA CESPEDES Admitting Clinician Unavailable XAVI VAZQUEZ Admitting Clinician Unavailable ELISABET COREY Admitting Clinician Unavailable Payers Payer Name Policy Type Policy Number Effective Date Expiration Date S ource BCBS PPO POS [id number] 2018 EPO CHOICE 00:00:00 AETNA HMO POS [id number] 2014 2018 00:00:00 QPOS 00:00:00 PPO/EPO - BCBS [id number] HMO/QPOS/SELECT [id number] [employer]ET[employer] CVCP-BCBS [id number] Problems Condition Condition Condition Status Onset Resolution Last Treating Co mments Source Name Details Category Date Date Treatment Clinician Date Nausea Nausea Disease Active 2021-[address] [facility] 00 [place] Intractabl Intractabl Disease Active [facility] abdominal abdominal 00:00: [facility] demetrius pain pain 00 Center Intractabl Intractabl Disease Active [facility] epigastric epigastric 00:00: Me dical abdominal abdominal 00 Cent er pain pain Abdominal Abdominal Disease Active [facility] 00 [place] Epigastric Epigastric Disease Active [facility] abdominal abdominal 5-06 [facility] pain pain 00:00: Medical 00 [place] Acute Acute Disease Active [facility] pancreatit pancreatit 2-07 [facility] k[facility] is is 00:00: Medical 00 [place] Pancreatit Pancreatit Disease Active [facility] Medical 00 [place] Epigastric Epigastric Disease Active [facility] pain pain 2-06 [facility] 00:[facility]: Medical 00 [place] Abnormal Abnormal Disease Active 2016-04 [facility] liver liver [facility]19 [facility] enzymes enzymes 00:00: Medical 00 [place] Obesity Obesity Disease Active 2016-[address] [facility] 00[facility] 00 Center Immunity Immunity Disease Active 2016-04 [facility] status status 2 [facility] testing testing 00:00: Medical 00 Center Chronic Chronic Disease Active 2016-[address] abdominal abdominal 2-19 [facility] pain pain 00:00: Medical 00 [place] Gastritis Gastritis Disease Active 2016-[address] [facility] 00[facility]: Medical 00 Center Allergies, Adverse Reactions, Alerts Allergy Allergy Status Severity Reaction(s) Onset Inactive Treating Comm ents Source Name Type Date Date Clinician NO KNOWN Allergy Active [facility] S NO KNOWN Drug Active Univers ALLERGIE Class ity of [facility] Family History Family Member Diagnosis Comments Start Date Stop Date Source Natural father Heart attack [facility] Natural father Other [facility] Natural father Stroke [facility] Natural father [facility] Natural father [facility] Maternal High blood [facility] Maternal Thyroid disease [facility] Maternal Gout [facility] Maternal Hypertension [facility] Paternal Liver cancer [facility] Paternal Other [facility] Paternal Coronary Artery [facility] llege grandfather Disease of Medicine Paternal Lung [facility] e grandfather [facility] M[facility] Maternal [facility]ers [facility] Maternal Dementia [facility] grandfather of [facility] Natural mother [facility] Col lege of Medicine Paternal Cirrhosis [facility] grandmother of [facility] Natural sister accident [facility] lege [facility] Natural brother Arrhythmia [facility] llege of [facility] Natural daughter [facility] Half-brother accident [facility] Half-sister osteogenesis [facility] Social History Social Habit Start Date Stop Date Quantity Comments Source History SDOH [facility] Alcohol intake 2022-02-23 2022-02-23 [facility]er [facility] of alcohol Medical Center (finding) History SDOH 2022-02-22 2022-02-[address] [facility] Transport Med 00:00:00 00:00:[address] [facility] 2022-02-22 2022-02-[address] [facility] Housing Unable to 00:00:00 00:00:00 Medical Center Pay History [facility] 2022-02-22 2022-02-[address] [facility] Housing Places 00:00:00 00:00:00 Medical Ce nter Lived History [facility] 2022-02-22 2022-02-[address] [facility] Housing Homeless 00:00:00 00:00:00 Medical Center Last Year History [facility] 2020-07-21 2020-07-[address] [facility] Alcohol Frequency 00:00:00 00:00:00 Medical Center History [facility] 2020-07-21 2020-07-[address] [facility] Alcohol Std Drinks 00:00:00 00:00:00 Medica l Center History [facility] 2020-07-21 2020-07-[address] [facility] Alcohol Binge 00:00:00 00:00:[address] History [facility] 2017-05-14 2017-05-[address] [facility] Alcohol Comment 00:00:00 00:00:00 Medical C enter Tobacco use and 2017-03-27 2017-03-[address] [facility] exposure 00:00:00 00:00:00 Medical Center Sex Assigned At [address] [facility] 00:00:00 00:00:00 Medical Center Smoking Status Start Date Stop Date Source Never sm[facility] Medications Ordered Filled Start Stop Current Ordering Indication Dosage Frequency Signature Comments Components Source Medication Medication Date Date Medication? Clinician (SIG) Name Name cholecalcif 2021-04 Yes 1000U QD Take 1,[address] alfreda, 1-17 Units by Mehrdad vitamin D3, 18:45: mouth Medic al 1,000 unit 38 daily. Center capsule levothyroxi 2021-04 Yes 125ug Take [address] ne 1-17 mcg by Mherdad (SYNTHROID, 18:45: mouth Medic al LEVOTHROID) 38 Every Center 125 MCG morning on tablet an empty stomach . HYDROcodone 2021-04- No 1{tbl} Take [address] -acetaminop 1-17 02-27 tablet by Giselle victoria (NORCO 00:00: 23:59 mouth Medic al 5-325) 00 :00 every 8 Center 5-325 mg (eight) per tablet hours as needed for Pain for up to 4 days. Max Daily Amount: 3 tablets HYDROcodone 2021-04- No 1{tbl} Take [address] -acetaminop 1-17 11-17 tablet by Giselle victoria (NORCO 00:00: 00:00 mouth Medic al 5-325) 00 :00 every 8 Center 5-325 mg (eight) per tablet hours as needed for Pain for up to 4 days. Max Daily Amount: 3 tablets HYDROcodone 2021-04- No 1{tbl} Take [address] -acetaminop 1-17 11-17 tablet by Giselle victoria (NORCO 00:00: 00:00 mouth Medic al 5-325) 00 :00 every 8 Center 5-325 mg (eight) per tablet hours as needed for Pain for up to 4 days. Max Daily Amount: 3 tablets ondansetron 2021-04 Yes 4mg Take [address] (ZOFRAN) 4 1-10 tablet (4 Luke s MG tablet 00:00: mg total) Med ical 00 by mouth 3 Center (three) times daily as needed for Nausea. HYDROcodone 2021-04- No 1{tbl} Take [address] -acetaminop 1-10 11-17 tablet by Giselle victoria (NORCO 00:00: 00:00 mouth Medic al 5-325) 00 :00 every 6 Center 5-325 mg (six) per tablet hours as needed for Pain. Max Daily Amount: 4 tablets Levothyroxi 2021-04 Yes Take by Beverly jt ne Sodium 1-08 mouth. [place] 125 MCG 08:56: of CAPS 32 Medicin e cholecalcif Yes 1000U QD Take 1,[address] alfreda, 5-06 Units by Mehrdad vitamin D3, 09:42: mouth Medic al 1,000 unit 49 daily. Center capsule levothyroxi Yes 125ug Take [address] ne 5-06 mcg by Mehrdad (SYNTHROID, 09:42: mouth Medic al LEVOTHROID) 49 Every Center 125 MCG morning on tablet an empty stomach . HYDROcodone 2021- No 1{tbl} Take [address] -acetaminop 5-06 05-06 tablet by Giselle victoria (NORCO 08:52: 00:00 mouth Medic al 10-325) 29 :00 every 6 Center 10-325 mg (six) per tablet hours as needed for Pain. HYDROcodone 2021- No 1{tbl} Take [address] -acetaminop 5-06 05-06 tablet by Giselle victoria (NORCO 08:52: 00:00 mouth Medic al 10-325) 29 :00 every 6 Center 10-325 mg (six) per tablet hours as needed for Pain. ondansetron Yes 4mg Take [address] (ZOFRAN) 4 5-06 tablet (4 Luke s MG tablet 00:00: mg total) Med ical 00 by mouth 3 Center (three) times daily as needed for Nausea. ondansetron 2021- No 4mg Take [address] (ZOFRAN) 4 5-06 11-10 tablet (4 Christian es MG tablet 00:00: 00:00 mg total) Me dical 00 :00 by mouth 3 Center (three) times daily as needed for Nausea. HYDROcodone 2021- No 1{tbl} Take [address] -acetaminop 5-06 05-16 tablet [facility]59 mouth Medic al 10-325) 00 :00 every 6 Center 10-325 mg (six) per tablet hours as needed for Pain for up to 10 days. Max Daily Amount: 4 tablets HYDROcodone 2021- No 1{tbl} Take [address] -acetaminop 5-06 05-16 tablet by Giselle victoria (NORCO 00:00: 23:59 mouth Medic al 10-325) 00 :00 every 6 Center 10-325 mg (six) per tablet hours as needed for Pain for up to 10 days. Max Daily Amount: 4 tablets Levothyroxi 2019-04 Yes Take by Beverly jt ne Sodium 1-13 mouth. College 125 MCG 15:13: of CAPS 46 Medicin e Magnesium 2018-04- No Take by Bayl or 500 MG CAPS 0-03 10-03 mouth. Colle ge 16:09: 00:00 of 21 :00 Medicin e Levothyroxi 2019- Yes Take by Beverly jt ne Sodium 0-03 mouth. [place] 125 MCG 16:09: of CAPS 18 Medicin e Levothyroxi 2018- Yes Take by Beverly jt ne Sodium 0-03 mouth. [place] 125 MCG 16:09: of CAPS 18 Medicin e Cholecalcif 2018- 2019- No 1000U Take 1,000 Oren alfreda 0-03 10-03 Units by [place] (VITAMIN 16:09: 00:00 mouth. of D3) 1000 18 :00 Medicin UNITS CAPS e tramadol 2019-0 Yes 50mg Take 1 Tab Beverly jt (ULTRAM) 50 5-01 by mouth Jamel ege MG tablet 00:00: every 6 of 00 hours as Medicin needed for e Pain. ondansetron 2019-0 Yes 8mg Take 1 Tab [facility] (ZOFRAN 5-01 by [facility] ODT) 8 mg 00:00: every 8 of disintegrat 00 hours as Medi destiney ing tablet needed for e Nausea. tramadol 2019- Yes 50mg Take 1 Tab Beverly jt (ULTRAM) 50 5-01 by mouth Jamel ege MG tablet 00:00: every 6 of 00 hours as Medicin needed for e Pain. ondansetron 2019-0 Yes 8mg Take 1 Tab [facility] (ZOFRAN 5-01 by [facility] ODT) 8 mg 00:00: every 8 of disintegrat 00 hours as Medi destiney ing tablet needed for e Nausea. tramadol 2018-0 Yes 50mg Take 1 Tab Beverly jt (ULTRAM) 50 5-01 by mouth Jamel ege MG tablet 00:00: every 6 of 00 hours as Medicin needed for e Pain. ondansetron 2019-0 Yes 8mg Take 1 Tab Oren (ZOFRAN 5-01 by mouth [place] ODT) 8 mg 00:00: every 8 of disintegrat 00 hours as Medi destiney ing tablet needed for e Nausea. tramadol 2019-0 Yes 50mg Take 1 Tab Beverly jt (ULTRAM) 50 5-01 by mouth Jamel ege MG tablet 00:00: every 6 of 00 hours as Medicin needed for e Pain. ondansetron 2019-0 Yes 8mg Take 1 Tab Oren (ZOFRAN 5-01 by [facility] [place]) 8 mg 00:00: every 8 of disintegrat 00 hours as Medi destiney ing tablet needed for e Nausea. ondansetron No 4mg Take [address] [facility] (ZOFRAN) 4 2- 05-06 tablet (4 Christian es MG tablet 00:00: 00:00 mg total) Me dical 00 :00 by mouth 3 Center (three) times daily as needed for Nausea. ondansetron No 4mg Take [address] (ZOFRAN) 4 2- 05-06 tablet (4 Christian es MG tablet 00:00: 00:00 mg total) Me dical 00 :00 by mouth 3 Center (three) times daily as needed for Nausea. Vital Signs Vital Name Observation Time Observation Value Comments Source HEIGHT 2020-08-09 08:01:00 170.2 cm WEIGHT 2020-08-09 08:01:00 80.7 kg HEIGHT 2020-08-06 12:43:00 170.2 cm WEIGHT 2020-08-06 12:43:00 74.844 kg HEIGHT 2022-02-21 23:12:00 170.2 cm WEIGHT 2022-02-21 23:12:00 79.379 kg HEIGHT 2022-02-21 23:12:00 170.2 cm WEIGHT 2022-02-21 23:12:00 79.379 kg HEIGHT 2022-02-21 23:12:00 170.2 cm WEIGHT 2022-02-21 23:12:00 79.379 kg HEIGHT 2022-02-14 09:44:00 170.2 cm WEIGHT 2022-02-14 09:44:00 81.4 kg HEIGHT 2022-02-14 09:44:00 170.2 cm WEIGHT 2022-02-14 09:44:00 81.4 kg Systolic blood 2022-02-14 14:57:00 95 mm[Hg] [facility] pressure Medicine Diastolic blood 2022-02-14 14:57:00 61 mm[Hg] [facility] of pressure Medicine Heart rate 2022-02-14 14:57:00 79 /min [facility] Body height 2022-02-14 14:57:00 170.2 cm [facility] Body weight 2022-02-14 14:57:00 81.466 kg [facility] BMI 2022-02-14 14:57:00 28.13 kg/m2 [facility] [employer] HEIGHT 2022-02-14 09:44:00 170.2 cm WEIGHT 2022-02-14 09:44:00 81.4 kg HEIGHT 2021-08-10 22:46:00 170.2 cm WEIGHT 2021-08-10 22:46:00 78.699 kg HEIGHT 2021-08-10 12:54:00 170.2 cm WEIGHT 2021-08-10 12:54:00 77.2 kg HEIGHT 2021-08-10 22:46:00 170.2 cm WEIGHT 2021-08-10 22:46:00 78.699 kg HEIGHT 2021-08-10 12:54:00 170.2 cm WEIGHT 2021-08-10 12:54:00 77.2 kg HEIGHT 2021-08-10 22:46:00 170.2 cm WEIGHT 2021-08-10 22:46:00 78.699 kg HEIGHT 2021-08-10 12:54:00 170.2 cm WEIGHT 2021-08-10 12:54:00 77.2 kg HEIGHT 2020-07-21 21:37:00 170.2 cm WEIGHT 2020-07-21 21:37:00 77.111 kg HEIGHT 2020-07-21 21:37:00 170.2 cm WEIGHT 2020-07-21 21:37:00 77.111 kg BMI 2020-02-20 15:12:00 27.94 kg/m2 [facility] Body temperature 2020-02-20 15:12:00 36.72 [facility] Respiratory rate 2020-02-20 15:12:00 16 /min [facility] Body height 2020-02-20 15:12:00 170.2 cm [facility] Body weight 2020-02-20 15:12:00 80.922 kg [facility] Body height 2019-12-12 13:34:00 170.2 cm [facility] Body weight 2019-12-12 13:34:00 80.74 kg [facility] BMI 2019-12-12 13:34:00 27.88 kg/m2 [facility] Body height 2019-12-12 13:34:00 170.2 cm [facility] Body weight 2019-12-12 13:34:00 80.74 kg [facility] BMI 2019-12-12 13:34:00 27.88 kg/m2 [facility] Systolic blood 2022-02-23 16:19:00 108 mm[Hg] [facility] Diastolic blood 2022-02-23 16:19:00 65 mm[Hg] [facility] Heart rate 2022-02-23 16:19:00 72 /min [facility] Body temperature 2022-02-23 16:19:00 36.33 Cornelia [facility] Respiratory rate 2022-02-23 16:19:00 18 /min [facility] Oxygen saturation in 2022-02-23 16:19:00 98 /min [facility] Arterial blood by Medical Ce nter Pulse oximetry Body height 2022-02-21 23:12:[address] [facility] Body weight 2022-02-21 23:12:[address] [facility] BMI 2022-02-21 23:12:00 27.41 kg/m2 [facility] Systolic blood 2021-08-12 07:45:00 111 mm[Hg] [facility] Diastolic blood 2021-08-12 07:45:00 65 mm[Hg] [facility] Heart rate 2021-08-12 07:45:00 80 /min [facility] Body temperature 2021-08-12 07:45:00 36.17 Corn[facility] Respiratory rate 2021-08-12 07:45:00 17 /min [facility] Oxygen saturation in 2021-08-12 07:45:00 96 /min [facility] Arterial blood by Medical Ce nter Pulse oximetry Body height 2021-08-10 22:46:[address] [facility] Body weight 2021-08-10 22:46:[address] [facility] BMI 2021-08-10 22:46:00 27.17 kg/m2 [facility] Systolic blood 2019-01-09 16:07:00 135 mm[Hg] [facility] pressure Medicine Diastolic blood 2019-01-09 16:07:00 86 mm[Hg] [facility] pressure Medicine Heart rate 2019-01-09 16:07:00 66 /min [facility] Body height 2019-01-09 16:07:00 170.2 cm [facility] Body weight 2019-01-09 16:07:00 82.283 kg [facility] BMI 2019-01-09 16:07:00 28.41 kg/m2 [facility] Body temperature 2018-10-18 16:06:00 36.83 [facility] Respiratory rate 2017-06-22 15:59:00 16 /min [facility] Procedures Procedure Date / Time Performing Clinician Source Performed REPORT OF PROCEDURE - 2022-02-23 13:14:[address] [facility] ENDOSCOPY [facility] TISSUE EXAM 2022-02-23 11:42:00 Velasquezbhanu [facility] ENDOSCOPY, UPPER GI 2022-02-23 11:33:00 VelasquezCassie drummond [facility] TRACT, WITH ENDOSCOPIC [facility] ENDOSCOPY, UPPER GI 2022-02-23 11:33:00 [facility] r BASIC METABOLIC PANEL 2022-02-23 04:30:00 [facility] CBC W/PLT COUNT & AUTO 2022-02-23 04:30:[address] [facility] DIFFERENTIAL [facility] CBC W/PLT COUNT & AUTO 2022-02-23 04:30:00 [facility] DIFFERENTIAL [facility] URINALYSIS W/ REFLEX 2022-02-22 21:14:[address] [facility] URINE CULTURE [facility] SARS-COV2/RT-PCR ([facility] & 2022-02-22 18:06:00 Yulisa Laughlin [facility] REF LABS) [facility] CT ABDOMEN/PELVIS WITH IV 2022-02-22 02:47:[address] [facility] ECG 12-LEAD 2022-02-21 23:29:37 Micheal [facility] ECG 12-LEAD 2022-02-21 23:29:37 Unknown, Hl7 Doctor [facility] CBC W/PLT COUNT & AUTO 2022-02-21 23:22:00 [facility] COMPREHENSIVE METABOLIC 2022-02-21 23:22:00 [facility] LIPASE 2022-02-21 23:22:00 [facility] LACTIC ACID, VENOUS 2022-02-21 23:22:00 [facility] HCG, QUANTITATIVE, 2022-02-21 23:22:00 [facility] TSH/FREE T4 IF INDICATED 2022-02-21 23:22:00 [facility] T4, FREE 2022-02-21 23:22:00 [facility] CBC W/PLT COUNT & AUTO 2022-02-21 23:22:00 [facility] EKG-SCANNED 2022-02-21 00:00:00 Patrick Templeton [facility] MR ABDOMEN WITHOUT IV 2022-02-16 13:01:00 Coy Marlena [facility] CONTRAST MRCP [facility] BASIC METABOLIC PANEL 2022-02-16 04:18:[facility] MAGNESIUM 2022-02-16 04:18:00 [facility] CBC W/PLT COUNT & AUTO 2022-02-16 04:18:00 [facility] CBC W/PLT COUNT & AUTO 2022-02-16 04:18:00 [facility] BASIC METABOLIC PANEL 2022-02-15 04:01:00 Radha Villafana [facility] SARS-COV2/RT-PCR ([facility] & 2022-02-14 11:56:[address] [facility] REF LABS) [facility] CBC W/PLT COUNT & AUTO 2022-02-14 09:48:00 Zaid Butler [facility] CBC W/PLT COUNT & AUTO 2022-02-14 09:48:00 Zaid Butler [facility] COMPREHENSIVE METABOLIC 2022-02-14 09:48:00 Zaid Butler [facility] LIPASE 2022-02-14 09:48:00 Zaid Butler [facility] URINALYSIS W/ REFLEX 2022-02-14 09:48:[address] [facility] URINE CULTURE [facility] SCREEN, URINE 2022-02-14 09:48:00 Zaid Butler [facility] COMPREHENSIVE METABOLIC 2021-08-12 04:52:00 Xavi Vazquez [facility] CALCIUM, IONIZED 2021-08-12 04:52:00 [facility] W/PLT COUNT & AUTO 2021-08-12 04:52:00 Xavi Vazquez [facility] PHOSPHORUS 2021-08-12 04:52:00 [facility] MAGNESIUM 2021-08-12 04:52:00 [facility] LIPID PANEL 2021-08-12 04:52:00 [facility] CBC W/PLT COUNT & AUTO 2021-08-12 04:52:00 Xavi Vazquez [facility] HEPATIC FUNCTION PANEL 2021-08-11 04:10:00 Lorna Velasquez [facility] BASIC METABOLIC PANEL 2021-08-11 04:10:00 Lorna Velasquez [facility] SARS-COV2/RT-PCR ([facility] & 2021-08-10 15:47:[address] [facility] REF LABS) [facility] MAGNESIUM 2021-08-10 15:04:[address] [facility] PHOSPHORUS 2021-08-10 15:04:[address] [facility] LIPASE 2021-08-10 15:04:00 Maninder [facility] COMPREHENSIVE METABOLIC 2021-08-10 15:04:00 Maninder Fartun [facility] PANEL [facility] AMYLASE 2021-08-10 15:04:00 Maninder [facility] CBC W/PLT COUNT & AUTO 2021-08-10 13:43:00 Fartun Dickens [facility] DIFFERENTIAL [facility] PT/APTT 2021-08-10 13:43:00 Maninder [facility] CBC W/PLT COUNT & AUTO 2021-08-10 13:43:00 Fartun Dickens [facility] URINALYSIS W/ REFLEX 2021-08-10 13:43:00 Maninder [facility] URINE CULTURE [facility] SCREEN, URINE 2021-08-10 13:43:00 Maninder [facility] ED RAPID DRUG SCREEN, URINE 2021-08-10 13:43:[facility]YL[facility] 2020-02-20 16:08:00 [facility] LIPASE 2020-02-20 16:08:00 [facility] TRYPSIN - SERUM 2020-02-20 16:08:00 [facility] Plan of Care Planned Activity Planned Date Details Comments Source Future Scheduled 2023-02-[address] [facility] Test 00:00:00 [facility] (12[facility] [code = Tobacco Cessation Counseling and Screening (12+)] Future Scheduled 2022-04-[address] [facility] Test 00:00:00 (12+) [code = DEPRESSION Med ical Center SCREENING (12+)] Future Scheduled 2022-02-19 COVID-19 Vaccine (#1) [facility] 14:57:47 [code = COVID-19 Vaccine Med icine (#1)] Future Scheduled 2022-02-19 TETANUS SHOT (ADULT) [facility] Test 14:57:47 [code = TETANUS SHOT Medicin e (ADULT)] Future Scheduled 2022-02-19 BMI FOLLOW UP PLAN [code [facility] Test 14:57:47 = BMI FOLLOW UP PLAN] Medici ne Future Scheduled 2022-02-19 Hepatitis C screening [facility] [facility] Test 14:57:47 (procedure) [code = Medicine [id number]] Future Scheduled 2022-02-19 Human immunodeficiency B [facility] Test 14:57:47 virus screening Medicine (procedure) [code = 038452830] Future Scheduled 2022-02-19 Screening for malignant [facility] Test 14:57:47 neoplasm of cervix Medicine (procedure) [code = 679136019] Future Scheduled 2022-02-19 FLU VACCINE > 6 MONTHS B [facility] Test 14:57:47 [code = FLU VACCINE > 6 Medi cine MONTHS] Future Scheduled 2021-12-08 INFLUENZA VACCINE (#1) [facility] 00:[facility] [code = INFLUENZA VACCINE Me dical Center (#1)] Future Scheduled 2021-12-08 INFLUENZA VACCINE (#1) [facility] Test 00:00:00 [code = INFLUENZA VACCINE Me dical Center (#1)] Future Scheduled 2009-02-27 Screening for malignant [facility] Test 00:00:00 neoplasm of cervix Medical C enter (procedure) [code = 681442975] Future Scheduled 2009-02-27 Screening for malignant [facility] Test 00:00:00 neoplasm of cervix Medical C enter (procedure) [code = 039667325] Future Scheduled 2007-02-27 DTAP/TDAP/TD VACCINES ([address] [facility] Test 00:00:00 - Tdap) [code = Medical Cent er DTAP/TDAP/TD VACCINES (1 - Tdap)] Future Scheduled 2007-02-27 DTAP/TDAP/TD VACCINES ([address] [facility] Test 00:00:00 - Tdap) [code = Medical Cent er DTAP/TDAP/TD VACCINES (1 - Tdap)] Future Scheduled 2006-02-27 HEPATITIS C [facility]CRE[facility]ING [facility] 00:00[facility] [code = HEPATITIS C Medical Center SCREENING] Future Scheduled 2006-02-27 [facility]PATITIS C [facility]CRE[facility] 00:00:00 [code = HEPATITIS C Medical Center SCREENING] Future Scheduled 1988 COVID-19 VACCINE (#1) [facility] 00:[facility] [code = COVID-19 VACCINE Med ical Center (#1)] Future Scheduled 1988 COVID-19 VACCINE (#1) [facility] 00:00:00 [code = COVID-19 VACCINE Med ical Center (#1)] Future Scheduled TETANUS SHOT (ADULT) [facility] Test [code = TETANUS SHOT Medicin e (ADULT)] Future Scheduled BMI FOLLOW UP PLAN [code [facility] Test = BMI FOLLOW UP PLAN] Medici ne Future Scheduled HIV SCREENING [code = HIV [facility] Test SCREENING] Medicine Future Scheduled CERVICAL CANCER SCREENING [facility] Test 3 YEAR FOLLOW UP [code = Med icine CERVICAL CANCER SCREENING 3 YEAR FOLLOW UP] Future Scheduled FLU VACCINE > 6 MONTHS B [facility] Test [code = FLU VACCINE > 6 Medi cine MONTHS] Future Scheduled TETANUS SHOT (ADULT) [facility] Test [code = TETANUS SHOT Medicin e (ADULT)] Future Scheduled BMI FOLLOW UP PLAN [code [facility] Test = BMI FOLLOW UP PLAN] Medici ne Future Scheduled HEPATITIS C SCREENING [facility] Test [code = HEPATITIS C Medicine SCREENING] Future Scheduled HIV SCREENING [code = HIV [facility] Test SCREENING] Medicine Future Scheduled CERVICAL CANCER SCREENING [facility] Test 3 YEAR FOLLOW UP [code = Med icine CERVICAL CANCER SCREENING 3 YEAR FOLLOW UP] Future Scheduled FLU VACCINE > 6 MONTHS B [facility] Test [code = FLU VACCINE > 6 Medi cine MONTHS] Future Scheduled ZOSTER VACCINE (1 of 2) [facility] Test [code = ZOSTER VACCINE (1 Me dicine of 2)] Future Scheduled TETANUS SHOT (ADULT) [facility] Test [code = TETANUS SHOT Medicin e (ADULT)] Future Scheduled BMI FOLLOW UP PLAN [code [facility] Test = BMI FOLLOW UP PLAN] Medici ne Future Scheduled HEPATITIS C SCREENING [facility] Test [code = HEPATITIS C Medicine SCREENING] Future Scheduled HIV SCREENING [code = HIV [facility] Test SCREENING] Medicine Future Scheduled CERVICAL CANCER SCREENING [facility] Test 3 YEAR FOLLOW UP [code = Med icine CERVICAL CANCER SCREENING 3 YEAR FOLLOW UP] Future Scheduled FLU VACCINE > 6 MONTHS B [facility] [code = FLU VACCINE > 6 Medi cine MONTHS] Encounters Start End Encounter Admission Attending Care Care Encounter Source Date/Time Date/Time Type Type Clinicians Facility Department ID 2021-01-15 Outpatient MITZY SHIELDS Surgery [id number] [facility] 16:22:58 [facility] 2022-02-21 2022-02-[address] Burton [facility] [id number] [facility] [address] 23:16:00 18:45:00 Radha Villafana [facility] 2022-02-21 2022-02-23 Outpatient ER [facility] Emergency [id number] [facility] 23:16:00 18:45:00 ELDON 2022-02-23 2022-02-[address] [facility] [id number] [facility] [address] 11:33:00 12:07:00 Event [facility] 2022-02-23 2022-02-[address] [facility] [id number] [facility] [address] 11:00:00 12:00:00 [facility] 2022-02-21 2022-02-21 Outpatient [facility] [id number] [facility] 23:16:00 23:59:00 [facility] 2022-02-21 2022-02-21 Outpatient BCM BCM [id number] [facility] 00:00:00 23:15:00 [facility] 2022-02-21 2022-02-[address] [facility] [id number] 00:[facility]00 00:00:[address] [facility] 2022-02-21 2022-02-21 Travel [facility] [id number] [facility]00 [facility] 2022-02-14 2022-02-16 [facility] Zaid Butler [facility] [id number] 09:41:00 17:32:00 Encounter Lorna Velasquez [facility] 2022-02-14 2022-02-16 Inpatient ER MOOSE CESPEDES Emergency [id number] SLE 09:41:00 17:32:00 MARLENA 2022-02-14 2022-02-14 Office MARINA RAYMUNDO [id number] Oren 08:41:17 13:49:29 Visit DARIEN AMBULATOR 350.1.13.21 College Y 0.2.7.2.686 of [id number] Medi destiney 325 e 2022-02-14 2022-02-14 Travel [facility] [id number] [facility] 00[facility]00 [facility] 2021-10-28 2021-10-28 [facility] [id number] 23:59[facility]00 23:59:00 [facility] 2021-10-28 2021-10-28 [facility] [id number] 23:59:00 23:59:00 [facility] 2021-10-28 2021-10-28 Outpatient [facility] [id number] SLE 00:00:00 23:59:00 [facility] 2021-10-04 2021-10-[address] [facility] [id number] 00:00:00 00:00:00 Orders [facility] 2021-10-04 2021-10-[address] [facility] [id number] 00:00:00 00:00:00 Orders [facility] 2021-08-10 2021-08-12 Inpatient ER TAYLOR [facility] Emergency [id number] SLE 12:55:00 09:42:00 [facility] 2021-08-10 2021-08-12 Hospital ER Fartun Dickens [facility] [id number] 12:55:00 09:42:00 Encounter Lorna Velasquez [facility] 2021-08-10 2021-08-12 [facility] Fartun Dickens [facility] [id number] 12:55:00 09:42:00 Encounter Lorna Velasquez [facility] 2021-08-10 2021-08-10 Travel [facility] [id number] [facility] 00:[facility]00 00:[facility]:00 [facility] 2021-08-10 2021-08-10 Travel [facility] [id number] [facility] 00[facility]00 [facility] 2020-08-06 2020-08-06 Outpatient EL [facility] SLE [id number] SLE 00:00:00 00:00:00 2020-07-21 2020-07-21 Emergency ER [facility] Emergency [id number] SLE 10:19:00 10:19:00 2020-02-20 2020-02-20 Office MARINA Shields [id number] [facility] 08:45:16 15:48:58 Visit Mohamed AMBULATOR 350.1.13.21 College Y 0.2.7.2.686 of [id number] [facility] 325 e 2019-12-12 2019-12-12 Office MARINA Shields 1.2.840.114 [id number] 08:07:46 09:16:44 Visit Mohamed AMBULATOR 350.1.13.21 Y 0.2.7.2.686 [id number] 2019-12-12 2019-12-12 Office Fifi, BCSteven 1.2.840.114 [id number] [facility] 08:07:46 09:16:44 Visit Mohamed AMBULATOR 350.1.13.21 College Y 0.2.7.2.686 of [id number] [facility] 325 e 2019-10-08 2019-10-08 Outpatient Todd [facility] [id number] Univers 08:00:00 08:00:00 ALICE brito [facility] 2018-10-18 2018-10-18 Office Fifi, 1.2.840.4 [id number] [facility] 10:57:25 15:28:42 Visit Mellissa [id number] Jamel [facility] [id number] Medici n .8 e 2018-08-29 2018-08-29 Outpatient MITZY DORADO [facility] [id number] [facility] 00:00:00 00:00:00 MELLISSA Results Test Description Test Time Test Comments Results Result Comments Source Tissue Exam 2022-02-25 12:25:40 Test Item Value Reference Range Interpretation Comme nts Case Report (test code = 104) Surgical Pathology Report Case: [id number] Authorizing Provider: Cassie Hussein Collected: 02/23/2022 11:42 AM Ordering Location: [address] Received: 02/23/2022 02:24 PM Service Pathologist: Asif Vila MD Specimen: Biopsy, Gastric, Random bx r/o H. Pylori DIAGNOSIS (test code = 3220) o2lpsACgHGTfk6drYRJjqLHoGyFkHiMeGxCoLq p cdWMxIHtccnRmMVxlcGljOTYwMlxhbnNpXHNwbH WzH3OmfmxsRWikCH6aSB1ksGvmbYEhnWDuMLZhI lGzz2cir843xVDyg4dvKFJHlelreSb8xAwlS09r r2U0QjejB62aiSQgPIC0CYCkDJWniUJzBIYcYKT 6TEGxrSExP0aaABFvMF1nmgwuIMslXOilCILvgM D0DYHtpVNcT9PmOSRfAFsqKZQndfv9JeVbBp3ql YUbsSpmFLugWVEfNIPwKDggIWYvIfWeGZ7fDRVT Q69XO2cjGHKCIeIBHAzlPfxARFTFLUjjrlDdNMV TENvRRPoEMOKXWZBDHWNTRv6VIWOfT2KKJOWVMU aDSSgEOTtvWpERX6QBKeCpZ4pMVnwWXs6hmYrsP VLvBL0OH0UJRPPKOVRNQdRPAWyOY93ABLFSTDSr XMtOG1XJLJ9IV2OGCKJLCiGEZbBGKV2VVe3DWYG CWo5ouPQocRpqqfYdZNvhv8DhBBeyRAZtLN1jhK pkNRJdUO4jFPMbG0gbuJ3iqcp7DvHdADUlSmP2S YJnqwN6Zyf6GSHvVKgex0him8JwIAKuGXn9wRjz AtNlGJQij1rsftWsJpNbRQVtZHKiWILysRZsS87 8z7oba2etklTljTF7KGNlTLB2TGimmrXdcbR0PA xpxVEgFkA5TRegogYnLLaenlKirfSlZks8TYMcC 363OMH4rFwfw3bvYZE7DEArHNNwLnIiAt3ocPWj Q157FZAsEWHSWATmtNn6RBLxnwQdrzLwfVUKe17 8Z586f5ugRVPgndAssDkMpvddr3raK183ETStuL NodkTjPwPiPCAalIAjxPP0RIZbQZ5zqdcnVRknS HnhOHWrpzB9IBQwgJZxF8GfMDCkZZ3byhebMAM9 SOycFNZyAMU7XeNsTZBxp2Wcdgd0NrBidb3oxq8 1OCS5a1KkrLweVXK7IVM2WjNyEe4jcGUvKWEnWG 5jGyWgrQRtXUMpys64aNvcDXlaXHN4OFGwwxYnl 9Fhv3lhGmSaqkRzW4fsU3GdHHLoDGZmSJWgLvHk kdVtg1Qsn6OqcHEvwSs5c5ohNKWdGYFqzNvsq6e eQJJ0ZYDvoBFxF0zvyF0zAYTkVS1skmxte9tfYJ jbUJlgMLLisKG8daO5SSDadDYxA8WccS6xJYJhI MptONBfgbu8XjXuPr1vhRDtwGfjOKdvRdgwDWlq XHBnbmNvbnRccGduZGVjXHBsYWluXHBsYWluXGY wXGZzMjRccWxcbGFuZzEwMzNcaGljaFxmMVxkYm QfHSCuWUbtQ2ptHpTaQiCgFja1MQBtsYXbMQIiQ ik3ELJeoNCiQZTErNnxwX3hYHFpdRvccD0swJR0 IUMqvyHcqULFjU6kNVJWyD2tDqH1SCJgLgs0QLE 9PzTqsKHgpA3= CPT Code(s) (test code = 6147) y5bjpVFlYSUhxCZ2CvIpNDOel7hwq7SnpOJh cGF oNZbjdBDsyhHimx00gFU8tP41AE2pEILuBwZ2QC ZwfcW5Czq5IMIpTNYwzIGnT417g2yey5kklaNow EN8cSeiTBPvulglEnH9QFyaLERbblbbQGq2KAst PUGyaQA0MYEvfFIgU6AgPYKgYP4ogda9RDI7FPa vTRFyAgL0CGNajAUwQZTtxQsrRWwth074OSZ6Jm CwZPKyhuQiaXmzpR3lGuZvZIZ7FIXrJTsjRZkqV DJccGFyfQ== CLINICAL HISTORY (test code = 1966) s2rktJGqQIXgoGM3YkOePZOer0ifp4X sdHBncGF yFIeiaGOwbpFoqw12yLW7uM00OH7tAEPePvQ3LR GrnkB1Ghp1SXRtHPBfmUThY596r0wwq6vfadYpu JK5hClkSLRozcrlChC0XCayHCQsfazqSVv3BQtc ODVusRS6QIPklHXfW8XyMSPhVU6dnii2MUJ5LRg cTALuWvW0WMRevSEwWXDryBbgVDiov957NIQ7Ez YwJFJatnDweUytcL1kFyRqKIFJJyFxhUycKLehp GFpblxwYXJ9 GROSS DESCRIPTION (test code = f3bmxDUfABNchEUTQGTdA3kmwxExBHJzuBLi Z3B [id number]) pxpvkKQafAF2rFZ1bxFjnyGBhfCJsYO1AUMFlYf FkMLEppQBqazBuLbMlMGIppFCrfMN1KJPiVQ0he rhwURufNFjiZWTrurW0SXHlqKGnF1XbZONhVF4m ujqkDLP2QMkhqX4vnmBYDhpqKk0vdKHqeBnxWdP dHsIxCGHtQLVwUVEdsKzhVAMoFDd8sN3VVsepZ9 2xt2J2Rdq3CAOrJVZwT5UtES8kDLPajBXkP66MH mfjYQS6PVSVUepjCAUiAV8Kn8lvJXDdfCGxWUQ6 JDuodRAbJAEoDFEeXJs3MOLpPOlhtAWuLN9lzDc eBgfcbKgqs5RiuUVmMLyhGNHjGQWgOAdoYUDyON 1BAsQdJGQ1ZaDjWKzyUJq2SZz8XX3PKvIqXDSkA Ua3GHJ1OKFuMBd7WQnuOE9FWQWzCLghBmnoZxQ1 NTEwMSBcXHQgMiBcXGYgQXJpYWwgXFxmbCBcXG5 kvGgyhMMjjsEHYbKErK6sr1uzQWvih5AczVVxXT BhciANClxlcGljTmVzdERvYzEgDQpcbHRycGFyX GxpbjBccmluMCANClxsdHJjaFxjZjFcZnMyMCBS LCMmpPZwFVMeqlGpa6QnGRspijZuSGMdeJUqCHc kfAmhkIgqQHRehNfvkgMvK6G1fvVcZL1bIKQzFI RaE0TsCLBhP97qVXDvvX0gEHSjUZ1wUFz0KPRpJ KSuBiskrkBlKX5eJPjib1OxxABbGYEvWYGeAXJf toFmp4F6OTDwh8X9PMHqkuCluYNvfJVooTUyc3G enY9wUSYgQZLgKKIwJUPdxTKpjwJfmyCepMKtrB EtnP2sozBie18jOEekoGZcYBZpUHKtqDEqkIQ5Z AGbmK0brW02coRukwUPSW0xzJQyAV7DLJArlnBQ XlooEeOrQeFzYuPDpFboyaYEsyb8XHajECJaUSX BLCBIVCAoQVNDUCkNClxwbGFpblxlcGljTmVzdE LbGgGyuPcjhK67XAGjnJVuGNZ6UW7zLTDbdmsqB ESmSRCmXEC5VUzdoG92qPVaOOGbGHTohTVghY9T LQJgYCO5EBswaJ58rNUaWL6NSBWnRAX0CAZenAB sGKT1VR0ynB5BgJ== SPECIAL STUDIES (test code = 3376) o5hkkZIqJNSqy9qmZYQeiDIjKqEmPjHh ZnRuYmp yfJZoJNxwzbOlXYzfl3KgC2YlSwQrFSdcglHsXP NyBinwhscvZUHiKBR0ddPkKVIkCDqqXLHjRMxaM i6nlQRngCnxNrDvIAKri7hwggQQpfihlIt3g2nw SRTwHrC2aWFhKVqhX0fsvzOqqYZxK0LoqGDzjFu 1w4ypMzNpGjW9sAPkNNzeN9xgrjTkiXUjYRTiVM c7rM56GUHqsV7faSZqCNfevuFbObP3UOdtCQXwB sC4YGKifROzHSSsR0cqRZZoSXvyOQRmOWylyTKj DBT0pSlli4S6xQLnmBIfwQgnWqQtGqGuBjYKc4Y yZEq0vKwuS9ZcAWRtZhD0jQEcCAKrKYhmHCFjAJ JvjtF6eFykugXfd16udWXmCCRzPPNyHjGdzMbmS JBaDPFHv3QlyKhsIUU0oPs6fGtlJpjsWJO4Jym9 ZF8tmc64uit2yHumSEVylwvuIiT0GSzdGQQlrrb xTPn7DEaoDVLxqSS7BLSroKWzP9BjITYvAK4mgf u1YXN7YGvgWBWwGuJ8DTGlhNHqPDOzxYooXGcvy 688CDT9KwGrLA5hX5Shv8U2vR5lyLUwKWVnpVPb VrBoPQPqia5maLWbRVell0LcIGP2vaC4iEYssBS uBWFaTR79Qsbqi2BrYdkpl6OuA05nkTC4PJqlg7 jwOX8eMyT8izQqIWefj3lnqY5uLvU7QQgnGQ9cV S6gXQPkaL9iktbkUOSdLpAfpcfuFDRybUhvykEg Hd3dvImfLTK6BRmhV5qjlL0hEdF4JKymF2xejK4 wZOv8UNsunZR8GOWtcN9aLX0ivgziw5fiABhdBF tmCXNamrR8qnU5GQFewVGsT3NmqR7mXRBgNI8pl kddz1eoZUX4YFffYXSfYWU9VsGzQSWqt1Nbdts8 RwVmy0KnjYKdYBezI75is201SAPwomHmG6tjgCA npqonoOAemtarWXqsrqN1LIZuEXXxIGivMIPcYO ZzMjJcbGFuZzEwMzNcaGljaFxmMVxkYmNoXGYxX TiqL4ttAaCaS9JvBHAzWlXfUBrgCSctpKRpvOGh wXM1nK6bXC3hCRXvqUWnX5BiOEUxbdNbyBLwQOT 4zTOfoCZaCR2vTBsnxYWwk7rih1RvG7rzsBpzkG P9IH5rHBGeHRQiNPvdm8JzfF5pJhziaIZsdxnxS HjlbuDjLQauzvghHOLcIVerG6ltNnGeWCSgvJnz TLwvq6BtBILxGQZsNpeledDsRIv3wmSqGJEejxf wFUHroQolwM4kPjPvFqCcHaoaTE7nWMUrV1fcrF VeTNTwTBZiH9bqDcWekZ7pbOnxVBomEqFcXaEfD tMJs571ag9pTQLvcBHxdmBEqYTsxV0vMUenGSiy CAidfRZkHKyqh3qgRCIxj6z6lOBjRBKstmAud8w bIQxxriYfTDGsoXBlsITpAFSzu17uEJmfcQiumW tfBAVhx8DjwLrog4IzFhVfMYnij9YtC87oyVOlx YDnkQavCVLebePuZKQfc99yn0pwNLMsNoE8yXMc bSP2hBAhgQJja5GncZcdIPSgk8vgZEHuht7tpjy aeTZff8KrrQ0gnhusMHvfnUZwpgKqBZPtw1v1cC HnYQQvPFEnNQicvMs6KUSqm211or3xmkV4mPOxV FK3IYoyKCRlTOIaipEvQQGxxESbbHZmEHOtGQqj XGYxXGZzMjJcbGFuZzEwMzNcaGljaFxmMVxkYmN iGUNgKCsjI3guTwTwV4XsMAHoPwUexZQfJ7fmrA FyXHBsYWluXGYxXGZzMjJcbGFuZzEwMzNcaGlja EisNOtqWiEeCUXoFHhyA5buCcVxA7HbKVTxPdNv AGrztGFnmcpoYNqycaPmMVukxvcfEQNeEImyM9r kPjHuWMOnaYxnQQlwf2RlSKYeSIHzYazrsmRoWO l3fuWyUUWnmpfxtSWeqxmjDJvhrcWqCUpwqkwfE OMxMTzsS6zoPoOpQUIyeAqlMKrbl1PpSZFnUFFz OjziwjStBHnmeTKcm1wxk2NoG0sfmDctfXD8NIV uS0kbeYTytQS0ADD8iS0wCDqigcTjOIXpd6IiVY BiDLDtFqU3sA4qTVK0DvCIyRhsOAFiKXqoCXMwO GZzMjJcbGFuZzEwMzNcaGljaFxmMVxkYmNoXGYx KKslF8dwYhYhY2JfTASySaZevNnnAWuiNUt9Bru vrRWetqgqHTabrmYoAXkfaqlhZZHfCUtfY4vdBl LhCQJpqDkaKLnwj0VgXUEcPSRxJoarwbEfWRTfO POycYMgmZYUEQ02GEQpBLEcqEuggA4heYJWJAMr tiX5k6Z4CRebHXIbBKd7VVzbrgMkVITwsS6fRPM oMO2tYJd1mdAuVINhy5MgXG1fVOXlbSJdHLR0KI Rwi3BrY4Ocq4DlJPCqBPDbeb8svjKvPbJJnFQuG DLqvu03JONyQZ0xL6hvJETpDXWlcuDzoSChm7Ht FODldIP6mJNpYR4WTkJHu89uFCDtJPIIjeXoPWT uwSbpmDQ8tnC7mV8xDlPIpGVlKeSJNNsiiyMyWX Umqv2qzcYwJXQyLQTfo3ThiOAxgPCwaeGeU3Vko 7OoNLCvsi67ZCrcgWErbw71GI0lV1Lkt5UbyO3v YDayANFnw1YpbKVedEHjJGTwb6CaY2tlhzinBMo jkVOtmU5sOPTbLLj1ZXJrj2SzCGSih6KwKbMzda GvODSaDHRdEGEkiH94XCD2kShxaEpicjAqEN7dC DOjktNxBNChBOUknA2gFBtnnmAnFCPpcnJ6s3G7 VYehKBNdreBjHltjLYL6ydLleeE3rSCiG2ahtef fVIivYVReg3PjiE4ldKRJwVAcg8CkvAIkrZPObV XxHY1ctpPpMO4hVWD4JFkaWPOTTFNzPUhfQJOkJ YC2EPdnXmrfWBP3viSnQXKqo2GrWZztR7ehC91r rCjtyLu4iETatWjdgSAafKKwGBIwvlM5p2D4ECH nb2LdznyfCSLcRXyxRETvRBZmIhGedPJrEdZdMj BboNvmxWlnMnolUxXxYJPfGDyaH9unBmMeNyMrB fbsWPN6dW== Gross assessment was performed at (test [facility] enter, code = 2777) Department of Pathology, [address] [place] [address], Technical component was performed at [facility] er, (test code = 2778) Department of Pathology, [address] [place] [address] 31303, Professional component was performed at [facility] enter, (test code = 2779) Department of Pathology, [address] [place], [place] [address], [facility] [id number] 12:25:40Surgical Pathology Report Case: [id number] Authorizing Provider: Cassie Hussein Collected: 1:42 AM Ordering Location: [address] Received: 02/23/2022 02:24 PM Service Pathologist: Asif Vila MD Specimen: Biopsy, Gastric, Random bx r/o H. Pylori A. STOMACH, RANDOM, BIOPSY-MILD INACTIVE CHRONIC GASTRITIS WITH REACTIVE CHANGES.- NEGATIVE FOR HELICOBACTER PYLORI ORGANISMS ON IMMUNOSTAIN. Signing Pathologist Direct Phone Line: [phone] signed by Asif Vila MD on 02/25/2022 at 12:25 [id number], [id number] painA. Biopsy, Gastric.Received in formalin labeled with the patient's name, medical record number and "random gastric" are 3 guadarrama soft tissue fragments measuring up to 0.4 cm in greatest dimension, which are submitted in toto in A1.ZHANE Stephens HT ([facility])The interpretation of this case included the use of immunohistochemistry or special stains.Control Slides Examined: In-house known positive controls were evaluated along with the test tissue. These control slides run alongside of the patients sample show appropriate staining. Internal positive and negative controls when available are evaluated Immunohistochemistry technical testing was performed at [facility], Pathology Laboratory where it was developed and its per formance characteristics were determined. It has not been cleared or approved by the U.S. Food and Drug Administration. The FDA has determined that such clearance or approval is not necessary. The testis used for clinical purposes. It should not be regarded as investigational or for research. This laboratory is certified under the Clinical Laboratory Improvement Amendments of 1988 (CLIA-88) as qualified to perform high complexity clinical laboratory testing.[facility], Department of Pathology, [address] [place] [id number], [facility], [facility] of [facility], [address] [place] [id number], [facility], Department of Path[facility], [address] [place] [id number], [facility] [id number] 06:49:17 Test Item Value Reference Range Interpretation Comments SODIUM (BEAKER) 136 meq/L 136-145 (test code = 381) POTASSIUM 3.7 meq/L 3.5-5.1 (BEAKER) (test code = 379) CHLORIDE (BEAKER) 104 meq/L 98-107 (test code = 382) CO2 (BEAKER) 23 meq/L 22-29 (test code = 355) BLOOD UREA 10 mg/dL 7-21 NITROGEN (BEAKER) (test code = 354) CREATININE 0.73 mg/dL 0.57-1.25 (BEAKER) (test code = 358) GLUCOSE RANDOM 76 mg/dL 70-105 (BEAKER) (test code = 652) CALCIUM (BEAKER) 8.8 mg/dL 8.4-10.2 (test code = 697) EGFR (BEAKER) 111 Interpretatio n of eGFR (test code = mL/min/1.73 values Stage De scription 1092) sq m Result G1 Rose Mary l or high >=90 G2 Mildly decreased 60-89 G3a Mildl y to moderately 45-5 9 G3b Moderately to s everely 30-44 G4 Severl y decreased 15-29 G5 Kidney failure <15Reported eGF R is based on the CKD-EPI 2020 equation that d oes not use a race coefficientEsti mated GFR is not as accur ate as Creatinine Teressa mitzi in predicting glom erular filtration rate . Estimated GFR is not appl icable for dialysis patien ts Vacuum Cooker Operator ID - CAITY MCBC W/PLT COUNT & AUTO [id number] 06:36:05 Test Item Value Reference Range Interpretation Comments WHITE BLOOD CELL COUNT 4.4 K/ L 3.5-10.5 (BEAKER) (test code = 775) RED BLOOD CELL COUNT 4.50 M/ L 3.93-5.22 (BEAKER) (test code = 761) HEMOGLOBIN (BEAKER) 13.8 GM/DL 11.2-15.7 (test code = 410) HEMATOCRIT (BEAKER) 40.9 % 34.1-44.9 (test code = 411) MEAN CORPUSCULAR 91 fL 79-95 Discordant MCV VOLUME (BEAKER) (test result s from code = 753) previous. Clini demetrius correlation required. MEAN CORPUSCULAR 30.7 pg 25.6-32.2 HEMOGLOBIN (BEAKER) (test code = 751) MEAN CORPUSCULAR 33.7 GM/DL 32.2-35.5 HEMOGLOBIN CONC (BEAKER) (test code = 752) RED CELL DISTRIBUTION 12.4 % 11.7-14.4 WIDTH (BEAKER) (test code = 412) PLATELET COUNT 228 K/CU MM 150-450 (BEAKER) (test code = 756) MEAN PLATELET VOLUME 10.2 fL 9.4-12.3 (BEAKER) (test code = 754) NUCLEATED RED BLOOD 0 /100 WBC 0-0 CELLS (BEAKER) (test code = 413) NEUTROPHILS RELATIVE 24 % PERCENT (BEAKER) (test code = 429) LYMPHOCYTES RELATIVE 58 % PERCENT (BEAKER) (test code = 430) MONOCYTES RELATIVE 9 % PERCENT (BEAKER) (test code = 431) EOSINOPHILS RELATIVE 8 % PERCENT (BEAKER) (test code = 432) BASOPHILS RELATIVE 1 % PERCENT (BEAKER) (test code = 437) NEUTROPHILS ABSOLUTE 1.06 K/ L 1.56-6.13 L COUNT (BEAKER) (test code = 670) LYMPHOCYTES ABSOLUTE 2.54 K/ L 1.18-3.74 COUNT (BEAKER) (test code = 414) MONOCYTES ABSOLUTE 0.39 K/ L 0.24-0.36 H COUNT (BEAKER) (test code = 415) EOSINOPHILS ABSOLUTE 0.37 K/ L 0.04-0.36 H COUNT (BEAKER) (test code = 416) BASOPHILS ABSOLUTE 0.02 K/ L 0.01-0.08 COUNT (BEAKER) (test code = 417) IMMATURE 0.20 % 0.00-1.00 GRANULOCYTES-RELATIVE PERCENT (BEAKER) (test code = 2801) Urinalysis w/Microscopic + Reflex to [id number] 21:35:13 Test Item Value Reference Range Interpretation Comments Color, UA (test code Yellow = 5778-6) Clarity, UA (test Clear code = 5767-9) Specific [place], UA 1.031 1.001-1.035 (test code = 5811-5) pH, UA (test code = 6.0 5.0-8.0 5803-2) Protein, UA (test 20 mg/dL Negative A code = 07689-4) Glucose, UA (test Negative Negative code = 365) Ketones, UA (test 20 mg/dL Negative A code = 2514-8) Bilirubin, UA (test Negative Negative code = 50197-7) Blood, UA (test code Negative Negative = 08964-2) Nitrite, UA (test Negative Negative code = 5802-4) Leukocytes, UA (test Negative Negative code = 5799-2) Urobilinogen, UA 0.2 0.2-1.0 (test code = 81093-3) RBC, UA (test code = 1 See_Comment [Autom ated 41346-0) message] The system which generated this result transmit verito reference range : /HPF. The reference range was not used to interpret this result as normal/abnormal . WBC, UA (test code = 2 See_Comment [Autom ated 5821-4) message] The system which generated this result transmit verito reference range : /HPF. The reference range was not used to interpret this result as normal/abnormal . Mucus (test code = Rare 8247-9) Squam Epithel, UA 5 See_Comment [Automate d (test code = 17745-4) messag e] The system which generated this result transmit verito reference range : /HPF. The reference range was not used to interpret this result as normal/abnormal . Specimen Source (test code = 2795) LUPILLO (test code = LUPILLO) Vacuum Cooker Operator ID - [auto]Vacuum Cooker Operator ID - tech Lab Interpretation Abnormal (test code = 84621-1) [facility] [id number] 21:35:13 Test Item Value Reference Range Interpretation Comments COLOR (BEAKER) (test code = 470) Yellow CLARITY (BEAKER) (test code = 469) Clear SPECIFIC GRAVITY UA (BEAKER) (test 1.031 1.001-1.035 code = 468) PH UA (BEAKER) (test code = 467) 6.0 5.0-8.0 PROTEIN UA (BEAKER) (test code = 20 mg/dL Negative A 464) GLUCOSE UA (BEAKER) (test code = Negative Negative 365) KETONES UA (BEAKER) (test code = 20 mg/dL Negative A 371) BILIRUBIN UA (BEAKER) (test code = Negative Negative 462) BLOOD UA (BEAKER) (test code = 461) Negative Negative NITRITE UA (BEAKER) (test code = Negative Negative 465) LEUKOCYTE ESTERASE UA (BEAKER) (test Negative Negative code = 466) UROBILINOGEN UA (BEAKER) (test code 0.2 0.2-1.0 = 463) RBC UA (BEAKER) (test code = 519) 1 /HPF WBC UA (BEAKER) (test code = 520) 2 /HPF MUCUS (BEAKER) (test code = 1574) Rare SQUAMOUS EPITHELIAL (BEAKER) (test 5 /HPF code = 516) SOURCE(BEAKER) (test code = 2795) Vacuum Cooker Operator ID - [auto]Vacuum Cooker Operator ID - techSARS-CoV2/RT-PCR (Asymptomatic ONLY) 2022-02-22 19:09:08 Test Item Value Reference Interpretation Comments Range SARS-COV2/RT-PCR Negative Negative The SARS-Co V-2 (test code = target nucleic 04866-3) acids are not detected in thi s specimen. Negat haris results do not preclude SARS-C oV-2 infection and should not be u sed as the sole bas is for patient management decisions. Nega tive results must be combined with clinical observations, patient history , and epidemiolog ical information. A false negative result may occu r if a specimen is improperly collected, transported or handled. This S ARS CoV-2 test is a rapid, real-carisa e RT-PCR test intended for th e qualitative detection of nucleic acid fr om SARS-CoV-2 in a nasopharyngeal swab specimen collec verito from individual s suspected of COVID-19 by the ir healthcare provider. LUPILLO (test code = This test has been LUPILLO) authorized by FDA under an EUA for use by authorized laboratories. This test is only authorized for the duration of the declaration that circumstances exist justifying the authorization of emergency use of in vitro diagnostic tests for detection and/or diagnosis of COVID-19 under Section 564(b)(1) of the Federal Food, Drug and Cosmetic Act, 21 U.S.C. 360bbb-3(b)(1), unless the authorization is terminated or revoked sooner. Fact Sheet for Healthcare Providers: https://www.[employer]/Documents/Xp ert%20Xpress%20SAR S%20CoV-2/Fact%20S heets/302-8803%20S ARS-COV-2%20HEALTH CARE%20PROVIDERS%2 0FACT%20SHEET.pdf Fact Sheet for Healthcare Patients: https://www.[employer]/Documents/Xp ert%20Xpress%20SAR S%20CoV-2/Fact%20S heets/302-3801%20S ARS-COV-2%20PATIEN T%20FACT%20SHEET.p df Lab Interpretation Normal (test code = 28669-4) [facility]22-02-22 19:09:08 Test Item Value Reference Range Interpretation Comments SARS-COV2/RT-PCR Negative Negative The SARS-Co V-2 target (test code = nucleic acids a re not [id number]) detected in thi s specimen. Negative result s do not preclude SARS-C oV-2 infection and s hould not be used as the francheska e basis for patient managem ent decisions. Nega tive results must be combine d with clinical observ ations, patient history , and epidemiological information. A false negativ e result may occur if a spec imen is improperly jamel ected, transported or handled. This SARS CoV-2 test is a rapid, real-time RT-PC R test intended for th e qualitative detection of nu cleic acid from SARS-CoV-2 in a nasopharyngeal swab specimen collected from individuals suspected of CO VID-19 by their healthcar e provider. This test has been authorized by FDA under an EUA for use by authorized laboratories. This test is only authorized for the duration of the declaration that circumstances exist justifying the authorization of emergency use of in vitro diagnostic tests for detection and/or diagnosis of COVID-19 under Section 564(b)(1) of the Federal Food, Drug and Cosmetic Act, 21 U.S.C. 360bbb-3(b)(1), unless the authorization is terminated or revoked sooner. Fact Sheet for Healthcare Providers: https://www.Mango[employer] m/Documents/Xpert%20Xpress%20SARS%20CoV-2/Fact%20Sheets/302-3802%64WVDW-YVR-6%20 HEALTHCARE%20PROVIDERS%20FACT%20SHEET.pdf Fact Sheet for Healthcare Patients: https://www.[facility]/Documents/Xpert%20Xp ress%20SARS%20CoV-2/Fact%20Sheets/302-3801%78EESP-RHR-7%20PATIENT%20FACT%20SHEET .pdfCT, [id number] 03:13:00Referring: Dr. Duran CordovatUnlisted Reason for Exam - Click Yes and Enter Reason Below->NoIsthis for enterography?->NoWill this procedure require oral contrast?->No [facility] 1990 Sex: FFINAL REPORT CT abdomen and pelvis with IV contrast Indication: Abdominal pain Comparison: CT abdomen pelvis with IV contrast on 07/21/2020. Technique: Axial CT images were obtained through the abdomen and pelvis during injection of nonionic iodinated intravenous contrast. Reformatted coronal and sagittal images were also obtained.One of the following dose optimization techniques was utilized in the performance of this exam: automated exposure control; adjustment of the mA and/or kV according to the patient's size; or use of an iterative reconstruction technique. Specific detailscan be referenced in the facility's radiology CT exam operational policy. Findings:Lower lung chadwick: Mild streaky atelectasis posterior bilateral lung bases. Liver: No focal parenchymal abnormality ofthe liver.Biliary: Gallbladder surgically absent. Slight decrease mild pneumobilia when compared to prior exam. This likely is to sequela of prior sphincterotomy. Mild dilatation common duct again seenwhich is within normal limits for a post cholecystectomy state.Pancreas: Normal appearance.Spleen: Calcified granulomas within the spleen again noted related to old granulomatous disease.Adrenal glands: Unremarkable. Kidneys / retroperitoneum: Significant cortical atrophy left kidney unchanged. There is no nephrolithiasis or hydronephrosis of the right kidney or left kidney. Bowel / peritoneum / mesenteries: No evidence of bowel obstruction. Moderate amount of stool seen throughout the colon.The appendix is visualized and appears unremarkable.No significant free fluid or free air within the abdomenor pelvis. Lymph node assessment: No pathologic adenopathy identified. Pelvic structures: Uterus overall unremarkable aside from the post procedural changes from tubal ligation which appears unchanged. Vessels: No significant atherosclerotic calcifications seen throughout a nonaneurysmal abdominal aorta and branches. Musculoskeletal / Body wall: No acute or aggressive osseous abnormality.Minimal disc space narrowing L5-S1. IMPRESSION:1. No acute intra- abdominal abnormality 2. Mild chronic/degenerative changes as described above. Signed: Sri Sharma MDReport Verified Date/Time: 02/22/2022 03:13:00 T4, FREE 2022-02-22 00:52:39 Test Item Value Reference Range Interpretation Comments FREE T4 ([facility]) (test code = 655) 1.26 ng/dL 0.70-1.48 Vacuum Cooker Operator ID - BSTSH/FREE T4 IF [id number] 00:23:29 Test Item Value Reference Range Interpretation Comments THYROID STIMULATING HORMONE 0.106 uIU/mL 0.350-4.940 L ([facility]) (test code = 772) Vacuum Cooker Operator ID - BSHCG, QUANTITATIVE, [id number] 00:23:24 Test Item Value Reference Range Interpretation Comments GONADOTROPIN, CHORIONIC (HCG) QUANT < mIU/mL 0-10 ([facility]) (test code = 649) Non- Females: <10 mIU/mL Females: Gestation Age Reference Range(mIU/mL) 0.2-1 Week 5-50 1-2 Weeks 50-500 2-3 Weeks 100-5,000 3-4 Weeks 500-10,000 4-5 Weeks 1,000-50,000 5-6 Weeks 10,000-100,000 6-8 Weeks 15,000- 200,000 2-3 Months 10,000-100,000 Vacuum Cooker Operator ID - BSCOMPREHENSIVE METABOLIC PANEL 2022-02-22 00:04:08 Test Item Value Reference Range Interpretation Comments TOTAL PROTEIN 8.3 gm/dL 6.0-8.3 ([facility]) (test code = 770) ALBUMIN (AKER) 4.6 g/dL 3.5-5.0 (test code = 1145) ALKALINE 72 U/L 40-150 PHOSPHATASE (BEAKER) (test code = 346) BILIRUBIN TOTAL 0.5 mg/dL 0.2-1.2 (BEAKER) (test code = 377) SODIUM (BEAKER) 139 meq/L 136-145 (test code = 381) POTASSIUM (BEAKER) 3.8 meq/L 3.5-5.1 (test code = 379) CHLORIDE (BEAKER) 102 meq/L 98-107 (test code = 382) CO2 (BEAKER) (test 27 meq/L 22-29 code = 355) BLOOD UREA 18 mg/dL 7-21 NITROGEN (BEAKER) (test code = 354) CREATININE 0.83 mg/dL 0.57-1.25 (BEAKER) (test code = 358) GLUCOSE RANDOM 85 mg/dL 70-105 (BEAKER) (test code = 652) CALCIUM (BEAKER) 9.7 mg/dL 8.4-10.2 (test code = 697) AST (SGOT) 28 U/L 5-34 (BEAKER) (test code = 353) ALT (SGPT) 62 U/L 6-55 H (BEAKER) (test code = 347) EGFR (BEAKER) 95 Interpretatio n of eGFR (test code = 1092) mL/min/1.[address] age Description sq m Result G1 Rose Mary l or high >=90 G2 Mildly decreased 60-89 G3a Mildl y to moderately 45-5 9 G3b Moderately to s everely 30-44 G4 Severl y decreased 15-29 G5 Kidney failure <15Reported eGF R is based on the CKD-EPI 2021 equation that d oes not use a race coefficientEsti mated GFR is not as accur ate as Creatinine Teressa mitzi in predicting glom erular filtration rate . Estimated GFR is not appl icable for dialysis patien ts Vacuum Cooker Operator ID - [id number] 00:04:08 Test Item Value Reference Range Interpretation Comments LIPASE (BEAKER) (test code = 749) 29 U/L 8-78 Vacuum Cooker Operator ID - BSLACTIC ACID, [id number] 23:44:44 Test Item Value Reference Range Interpretation Comments LACTATE BLOOD VENOUS (2) (BEAKER) 1.07 mmol/L 0.50-2.20 (test code = 2872) Vacuum Cooker Operator ID - BSCBC W/PLT COUNT & AUTO [id number] 23:33:21 Test Item Value Reference Range Interpretation Comments WHITE BLOOD CELL COUNT (BEAKER) 7.4 K/ L 3.5-10.5 (test code = 775) RED BLOOD CELL COUNT (BEAKER) 4.99 M/ L 3.93-5.22 (test code = 761) HEMOGLOBIN (BEAKER) (test code = 15.2 GM/DL 11.2-15.7 410) HEMATOCRIT (BEAKER) (test code = 42.6 % 34.1-44.9 411) MEAN CORPUSCULAR VOLUME (BEAKER) 85 fL 79-95 (test code = 753) MEAN CORPUSCULAR HEMOGLOBIN 30.5 pg 25.6-32.2 (BEAKER) (test code = 751) MEAN CORPUSCULAR HEMOGLOBIN CONC 35.7 GM/DL 32.2-35.5 H (BEAKER) (test code = 752) RED CELL DISTRIBUTION WIDTH 12.5 % 11.7-14.4 (BEAKER) (test code = 412) PLATELET COUNT (BEAKER) (test 301 K/CU MM 150-450 code = 756) MEAN PLATELET VOLUME (BEAKER) 10.0 fL 9.4-12.3 (test code = 754) NUCLEATED RED BLOOD CELLS 0 /100 WBC 0-0 (BEAKER) (test code = 413) NEUTROPHILS RELATIVE PERCENT 40 % (BEAKER) (test code = 429) LYMPHOCYTES RELATIVE PERCENT 47 % (BEAKER) (test code = 430) MONOCYTES RELATIVE PERCENT 9 % (BEAKER) (test code = 431) EOSINOPHILS RELATIVE PERCENT 4 % (BEAKER) (test code = 432) BASOPHILS RELATIVE PERCENT 0 % (BEAKER) (test code = 437) NEUTROPHILS ABSOLUTE COUNT 2.95 K/ L 1.56-6.13 (BEAKER) (test code = 670) LYMPHOCYTES ABSOLUTE COUNT 3.47 K/ L 1.18-3.74 (BEAKER) (test code = 414) MONOCYTES ABSOLUTE COUNT (BEAKER) 0.65 K/ L 0.24-0.36 H (test code = 415) EOSINOPHILS ABSOLUTE COUNT 0.27 K/ L 0.04-0.36 (BEAKER) (test code = 416) BASOPHILS ABSOLUTE COUNT (BEAKER) 0.02 K/ L 0.01-0.08 (test code = 417) IMMATURE GRANULOCYTES-RELATIVE 0.30 % 0.00-1.00 PERCENT (BEAKER) (test code = 2801) MR, ABDOMEN, [id number] 17:54:00Referring: Dr. Duran Reaves SweattUnlisted Reason for Exam - Click Yes and Enter Reason Below->YesUnlisted Reason for Exam->chronic pancreatitis with ongoing pain [facility] : 1990 Sex: FFINAL REPORT TECHNIQUE: MRI of the abdomen and MRCP WITHOUT intravenous contrast. 3-D volume reconstructions were obtained to evaluate the biliary ductal system. INDICATION: Unlisted Reason for Examchronic pancreatitis with ongoing pain. COMPARISON: CT from 07/21/2020. MRCP from 08/13/2018. FINDINGS: ABSENCE OF INTRAVENOUS CONTRAST DECREASES SENSITIVITY FOR DETECTION OF FOCAL LESIONSAND VASCULAR PATHOLOGY. LOWER THORAX: Mild bibasilar atelectasis. Trace left pleural effusion. LIVER: No hepatic signal abnormality. No focal hepatic lesions. BILIARY: Prior cholecystectomy. No biliaryductal dilatation or filling defect. The common bile duct measures 0.6 cm in diameter.SPLEEN: No sple nomegaly. The spleen measures 12.2 cm in length. A calcified in the spleen measures 0.3 cm. PANCREAS: No focal masses or ductal dilatation. The T1-weighted signal of the pancreas is normal. No pancreatic ductal stricture. ADRENALS: No adrenal nodules.KIDNEYS/URETERS: No hydronephrosis or solid mass lesions. Mild left renal cortical scarring. PERITONEUM/RETROPERITONEUM: No free fluid.LYMPH NODES: No lymphadenopathy.VESSELS: Unremarkable. GI TRACT: No distention or wall thickening. BONES AND SOFT TISSUES: Unremarkable. IMPRESSION: No convincing findings of chronic pancreatitis on this MRI. Signed: Danielle Mcclain MDReport Verified Date/Time: 02/16/2022 17:54:39 CBC W/PLT COUNT & AUTO [id number] 05:23:15 Test Item Value Reference Range Interpretation Comments WHITE BLOOD CELL COUNT (BEAKER) 4.2 K/ L 3.5-10.5 (test code = 775) RED BLOOD CELL COUNT (BEAKER) 4.16 M/ L 3.93-5.22 (test code = 761) HEMOGLOBIN (BEAKER) (test code = 12.7 GM/DL 11.2-15.7 410) HEMATOCRIT (BEAKER) (test code = 37.2 % 34.1-44.9 411) MEAN CORPUSCULAR VOLUME (BEAKER) 89 fL 79-95 (test code = 753) MEAN CORPUSCULAR HEMOGLOBIN 30.5 pg 25.6-32.2 (BEAKER) (test code = 751) MEAN CORPUSCULAR HEMOGLOBIN CONC 34.1 GM/DL 32.2-35.5 (BEAKER) (test code = 752) RED CELL DISTRIBUTION WIDTH 12.3 % 11.7-14.4 (BEAKER) (test code = 412) PLATELET COUNT (BEAKER) (test 190 K/CU MM 150-450 code = 756) MEAN PLATELET VOLUME (BEAKER) 9.8 fL 9.4-12.3 (test code = 754) NUCLEATED RED BLOOD CELLS 0 /100 WBC 0-0 (BEAKER) (test code = 413) NEUTROPHILS RELATIVE PERCENT 32 % (BEAKER) (test code = 429) LYMPHOCYTES RELATIVE PERCENT 51 % (BEAKER) (test code = 430) MONOCYTES RELATIVE PERCENT 11 % (BEAKER) (test code = 431) EOSINOPHILS RELATIVE PERCENT 5 % (BEAKER) (test code = 432) BASOPHILS RELATIVE PERCENT 1 % (BEAKER) (test code = 437) NEUTROPHILS ABSOLUTE COUNT 1.31 K/ L 1.56-6.13 L (BEAKER) (test code = 670) LYMPHOCYTES ABSOLUTE COUNT 2.12 K/ L 1.18-3.74 (BEAKER) (test code = 414) MONOCYTES ABSOLUTE COUNT (BEAKER) 0.47 K/ L 0.24-0.36 H (test code = 415) EOSINOPHILS ABSOLUTE COUNT 0.21 K/ L 0.04-0.36 (BEAKER) (test code = 416) BASOPHILS ABSOLUTE COUNT (BEAKER) 0.02 K/ L 0.01-0.08 (test code = 417) IMMATURE GRANULOCYTES-RELATIVE 0.50 % 0.00-1.00 PERCENT (BEAKER) (test code = 2801) [id number] 05:11:49 Test Item Value Reference Range Interpretation Comments MAGNESIUM (BEAKER) (test code = 1.8 mg/dL 1.6-2.6 627) Vacuum Cooker Operator ID - CAITY MBASIC METABOLIC [id number] 05:11:48 Test Item Value Reference Range Interpretation Comments SODIUM (BEAKER) 140 meq/L 136-145 (test code = 381) POTASSIUM 4.3 meq/L 3.5-5.1 (BEAKER) (test code = 379) CHLORIDE (BEAKER) 111 meq/L 98-107 H (test code = 382) CO2 (BEAKER) 23 meq/L 22-29 (test code = 355) BLOOD UREA 7 mg/dL 7-21 NITROGEN (BEAKER) (test code = 354) CREATININE 0.69 mg/dL 0.57-1.25 (BEAKER) (test code = 358) GLUCOSE RANDOM 87 mg/dL 70-105 (BEAKER) (test code = 652) CALCIUM (BEAKER) 8.2 mg/dL 8.4-10.2 L (test code = 697) EGFR (BEAKER) 117 Interpretatio n of eGFR (test code = mL/min/1.73 values Stage De scription 1092) sq m Result G1 Rose Mary l or high >=90 G2 Mildly decreased 60-89 G3a Mildl y to moderately 45-5 9 G3b Moderately to s everely 30-44 G4 Severl y decreased 15-29 G5 Kidney failure <15Reported eGF R is based on the CKD-EPI 2020 equation that d oes not use a race coefficientEsti mated GFR is not as accur ate as Creatinine Teressa mitzi in predicting glom erular filtration rate . Estimated GFR is not appl icable for dialysis patien ts Vacuum Cooker Operator ID - CAITY MBASIC METABOLIC [id number] 05:50:31 Test Item Value Reference Range Interpretation Comments SODIUM (BEAKER) 136 meq/L 136-145 (test code = 381) POTASSIUM 4.1 meq/L 3.5-5.1 (BEAKER) (test code = 379) CHLORIDE (BEAKER) 107 meq/L 98-107 (test code = 382) CO2 (BEAKER) 23 meq/L 22-29 (test code = 355) BLOOD UREA 10 mg/dL 7-21 NITROGEN (BEAKER) (test code = 354) CREATININE 0.72 mg/dL 0.57-1.25 (BEAKER) (test code = 358) GLUCOSE RANDOM 76 mg/dL 70-105 (BEAKER) (test code = 652) CALCIUM (BEAKER) 8.5 mg/dL 8.4-10.2 (test code = 697) EGFR (BEAKER) 113 Interpretatio n of eGFR (test code = mL/min/1.73 values Stage D escription 1092) sq m Result G1 Rose Mary l or high >=90 G2 Mildly decreased 60-89 G3a Mildl y to moderately 45-5 9 G3b Moderately to s everely 30-44 G4 Severl y decreased 15-29 G5 Kidney failure <15Reported eGF R is based on the CKD-EPI 2020 equation that d oes not use a race coefficientEsti mated GFR is not as accur ate as Creatinine Teressa mitzi in predicting glom erular filtration rate . Estimated GFR is not appl icable for dialysis patien ts Vacuum Cooker Operator ID - ERIC WSARS-COV2/RT-PCR ([facility])2022-02-14 12:50:48 Test Item Value Reference Range Interpretation Comments SARS-COV2/RT-PCR (test Negative Not Detected, Negative, See code = [id number]) external report for linked test [id number] 11:22:44 Test Item Value Reference Range Interpretation Comments LIPASE (BEAKER) (test code = 749) 36 U/L 8-78 COMPREHENSIVE METABOLIC [id number] 11:22:38 Test Item Value Reference Range Interpretation Comments TOTAL PROTEIN 8.1 gm/dL 6.0-8.3 (BEAKER) (test code = 770) ALBUMIN (BEAKER) 5.0 g/dL 3.5-5.0 (test code = 1145) ALKALINE 64 U/L 40-150 PHOSPHATASE (BEAKER) (test code = 346) BILIRUBIN TOTAL 0.9 mg/dL 0.2-1.2 (BEAKER) (test code = 377) SODIUM (BEAKER) 138 meq/L 136-145 (test code = 381) POTASSIUM (BEAKER) 4.4 meq/L 3.5-5.1 (test code = 379) CHLORIDE (BEAKER) 107 meq/L 98-107 (test code = 382) CO2 (BEAKER) (test 25 meq/L 22-29 code = 355) BLOOD UREA 10 mg/dL 7-21 NITROGEN (BEAKER) (test code = 354) CREATININE 0.92 mg/dL 0.57-1.25 (BEAKER) (test code = 358) GLUCOSE RANDOM 99 mg/dL 70-105 (BEAKER) (test code = 652) CALCIUM (BEAKER) 9.7 mg/dL 8.4-10.2 (test code = 697) AST (SGOT) 25 U/L 5-34 (BEAKER) (test code = 353) ALT (SGPT) 41 U/L 6-55 (BEAKER) (test code = 347) EGFR (BEAKER) 84 Interpretatio n of eGFR (test code = 1092) mL/min/1.[address] age Description sq m Result G1 Rose Mary l or high >=90 G2 Mildly decreased 60-89 G3a Mildl y to moderately 45-5 9 G3b Moderately to s everely 30-44 G4 Severl y decreased 15-29 G5 Kidney failure <15Reported eGF R is based on the CKD-EPI 202 equation that d oes not use a race coefficientEsti mated GFR is not as accur ate as Creatinine Teressa cartagena in predicting glom erular filtration rate . Estimated GFR is not appl icable for dialysis patien ts CBC W/PLT COUNT & AUTO [id number] 10:32:56 Test Item Value Reference Range Interpretation Comments WHITE BLOOD CELL COUNT (BEAKER) 6.4 K/ L 3.5-10.5 (test code = 775) RED BLOOD CELL COUNT (BEAKER) 4.91 M/ L 3.93-5.22 (test code = 761) HEMOGLOBIN (BEAKER) (test code = 15.2 GM/DL 11.2-15.7 410) HEMATOCRIT (BEAKER) (test code = 44.0 % 34.1-44.9 411) MEAN CORPUSCULAR VOLUME (BEAKER) 90 fL 79-95 (test code = 753) MEAN CORPUSCULAR HEMOGLOBIN 31.0 pg 25.6-32.2 (BEAKER) (test code = 751) MEAN CORPUSCULAR HEMOGLOBIN CONC 34.5 GM/DL 32.2-35.5 (BEAKER) (test code = 752) RED CELL DISTRIBUTION WIDTH 12.3 % 11.7-14.4 (BEAKER) (test code = 412) PLATELET COUNT (BEAKER) (test 252 K/CU MM 150-450 code = 756) MEAN PLATELET VOLUME (BEAKER) 10.8 fL 9.4-12.3 (test code = 754) NEUTROPHILS RELATIVE PERCENT 46 % (BEAKER) (test code = 429) LYMPHOCYTES RELATIVE PERCENT 42 % (BEAKER) (test code = 430) MONOCYTES RELATIVE PERCENT 8 % (BEAKER) (test code = 431) EOSINOPHILS RELATIVE PERCENT 3 % (BEAKER) (test code = 432) BASOPHILS RELATIVE PERCENT 0 % (BEAKER) (test code = 437) NEUTROPHILS ABSOLUTE COUNT 2.94 K/ L 1.56-6.13 (BEAKER) (test code = 670) LYMPHOCYTES ABSOLUTE COUNT 2.69 K/ L 1.18-3.74 (BEAKER) (test code = 414) MONOCYTES ABSOLUTE COUNT (BEAKER) 0.52 K/ L 0.24-0.36 H (test code = 415) EOSINOPHILS ABSOLUTE COUNT 0.22 K/ L 0.04-0.36 (BEAKER) (test code = 416) BASOPHILS ABSOLUTE COUNT (BEAKER) 0.02 K/ L 0.01-0.08 (test code = 417) IMMATURE GRANULOCYTES-RELATIVE 0.50 % 0.00-1.00 PERCENT (BEAKER) (test code = 2801) URINALYSIS W/ REFLEX URINE [id number] 10:32:06 Test Item Value Reference Range Interpretation Comments COLOR (BEAKER) (test code = Yellow 470) CLARITY (BEAKER) (test code = Clear 469) SPECIFIC GRAVITY UA (BEAKER) 1.010 1.001-1.035 (test code = 468) PH UA (BEAKER) (test code = 6.0 5.0-8.0 467) PROTEIN UA (BEAKER) (test code Negative Negative = 464) GLUCOSE UA (BEAKER) (test code Negative Negative = 365) KETONES UA (BEAKER) (test code Negative Negative = 371) BILIRUBIN UA (BEAKER) (test Negative Negative code = 462) BLOOD UA (BEAKER) (test code = Negative Negative 461) NITRITE UA (BEAKER) (test code Negative Negative = 465) LEUKOCYTE ESTERASE UA (BEAKER) Negative Negative (test code = 466) UROBILINOGEN UA (BEAKER) (test 0.2 code = 463) RBC UA-MANUAL (BEAKER) (test None Seen /HPF code = 1659) WBC UA-MANUAL (BEAKER) (test <5 /HPF code = 1661) SQUAMOUS EPITHELIAL MANUAL <5 /HPF (BEAKER) (test code = 1663) SOURCE(BEAKER) (test code = 2795) Screen, [id number] 10:19:58 Test Item Value Reference Range Interpretation Comments Preg Test, Ur (test code = 2112-1) Negative Negative Lab Interpretation (test code = Normal 12916-3) [facility], [id number] 10:19:58 Test Item Value Reference Range Interpretation Comments TEST URINE (BEAKER) (test Negative Negative code = 583) LIPID [id number] 06:53:13 Test Item Value Reference Range Interpretation Comments TRIGLYCERIDES (BEAKER) (test code = 77 mg/dL 540) CHOLESTEROL (BEAKER) (test code = 136 mg/dL 631) HDL CHOLESTEROL (BEAKER) (test code 32 mg/dL = 976) LDL CHOLESTEROL CALCULATED (BEAKER) 89 mg/dL (test code = 633) Triglyceride Reference Range: Low Risk <150 Borderline 150-199 High Risk 200-499 Very High Risk >=500Cholesterol Reference Range: Low Risk <200 Borderline 200-239 High Risk >240HDL Cholesterol Reference Range: Low Risk >=60 High Risk <40LDL Cholesterol Reference Range: Optimal <100 Near Optimal 100-129 Borderline 130-159 High 160-189 Very High >=190 Vacuum Cooker Operator ID - NAILA [id number] 06:53:12 Test Item Value Reference Range Interpretation Comments MAGNESIUM (BEAKER) (test code = 1.8 mg/dL 1.6-2.6 627) Vacuum Cooker Operator ID - NAILA [id number] 06:53:12 Test Item Value Reference Range Interpretation Comments PHOSPHORUS (BEAKER) (test code = 3.0 mg/dL 2.3-4.7 604) Vacuum Cooker Operator ID - NAILA GCOMPREHENSIVE METABOLIC [id number] 06:53:11 Test Item Value Reference Range Interpretation Comments TOTAL PROTEIN 6.1 gm/dL 6.0-8.3 (BEAKER) (test code = 770) ALBUMIN (BEAKER) 3.4 g/dL 3.5-5.0 L (test code = 1145) ALKALINE PHOSPHATASE 59 U/L 40-150 (BEAKER) (test code = 346) BILIRUBIN TOTAL 0.5 mg/dL 0.2-1.2 (BEAKER) (test code = 377) SODIUM (BEAKER) (test 137 meq/L 136-145 code = 381) POTASSIUM (BEAKER) 3.6 meq/L 3.5-5.1 (test code = 379) CHLORIDE (BEAKER) 103 meq/L 98-107 (test code = 382) CO2 (BEAKER) (test 27 meq/L 22-29 code = 355) BLOOD UREA NITROGEN 7 mg/dL 7-21 (BEAKER) (test code = 354) CREATININE (BEAKER) 0.66 mg/dL 0.57-1.25 (test code = 358) GLUCOSE RANDOM 82 mg/dL 70-105 (BEAKER) (test code = 652) CALCIUM (BEAKER) 8.8 mg/dL 8.4-10.2 (test code = 697) AST (SGOT) (BEAKER) 19 U/L 5-34 (test code = 353) ALT (SGPT) (BEAKER) 35 U/L 6-55 (test code = 347) EGFR (BEAKER) (test 103 ESTIMATE D GFR IS code = 1092) mL/min/1.73 sq NOT ACCURA TE m CREATININE CLEARANCE IN PREDICTING GLOMERULAR FILTRATION RATE . ESTIMATED GFR I S NOT APPLICABLE FOR DIALYSIS PATIEN TS. Vacuum Cooker Operator ID - NAILA GCBC W/PLT COUNT & AUTO [id number] 05:53:24 Test Item Value Reference Range Interpretation Comments WHITE BLOOD CELL COUNT (BEAKER) 5.7 K/ L 3.5-10.5 (test code = 775) RED BLOOD CELL COUNT (BEAKER) 4.19 M/ L 3.93-5.22 (test code = 761) HEMOGLOBIN (BEAKER) (test code = 13.1 GM/DL 11.2-15.7 410) HEMATOCRIT (BEAKER) (test code = 38.5 % 34.1-44.9 411) MEAN CORPUSCULAR VOLUME (BEAKER) 91.9 fL 79.4-94.8 (test code = 753) MEAN CORPUSCULAR HEMOGLOBIN 31.3 pg 25.6-32.2 (BEAKER) (test code = 751) MEAN CORPUSCULAR HEMOGLOBIN CONC 34.0 GM/DL 32.2-35.5 (BEAKER) (test code = 752) RED CELL DISTRIBUTION WIDTH 12.0 % 11.7-14.4 (BEAKER) (test code = 412) PLATELET COUNT (BEAKER) (test 235 K/CU MM 150-450 code = 756) MEAN PLATELET VOLUME (BEAKER) 10.4 fL 9.4-12.3 (test code = 754) NUCLEATED RED BLOOD CELLS 0 /100 WBC 0-0 (BEAKER) (test code = 413) NEUTROPHILS RELATIVE PERCENT 48 % (BEAKER) (test code = 429) LYMPHOCYTES RELATIVE PERCENT 38 % (BEAKER) (test code = 430) MONOCYTES RELATIVE PERCENT 10 % (BEAKER) (test code = 431) EOSINOPHILS RELATIVE PERCENT 4 % (BEAKER) (test code = 432) BASOPHILS RELATIVE PERCENT 0 % (BEAKER) (test code = 437) NEUTROPHILS ABSOLUTE COUNT 2.68 K/ L 1.56-6.13 (BEAKER) (test code = 670) LYMPHOCYTES ABSOLUTE COUNT 2.12 K/ L 1.18-3.74 (BEAKER) (test code = 414) MONOCYTES ABSOLUTE COUNT (BEAKER) 0.55 K/ L 0.24-0.36 H (test code = 415) EOSINOPHILS ABSOLUTE COUNT 0.25 K/ L 0.04-0.36 (BEAKER) (test code = 416) BASOPHILS ABSOLUTE COUNT (BEAKER) 0.02 K/ L 0.01-0.08 (test code = 417) IMMATURE GRANULOCYTES-RELATIVE 1 % 0-1 PERCENT (BEAKER) (test code = 2801) CALCIUM, [id number] 05:15:47 Test Item Value Reference Range Interpretation Comments CALCIUM IONIZED (BEAKER) (test 1.15 mmol/L 1.12-1.27 code = 698) PH, BLOOD (BEAKER) (test code = 7.39 1810) HEPATIC FUNCTION [id number] 05:57:11 Test Item Value Reference Range Interpretation Comments TOTAL PROTEIN (BEAKER) (test code = 6.2 gm/dL 6.0-8.3 770) ALBUMIN (BEAKER) (test code = 1145) 3.4 g/dL 3.5-5.0 L BILIRUBIN TOTAL (BEAKER) (test code 0.8 mg/dL 0.2-1.2 = 377) BILIRUBIN DIRECT (BEAKER) (test 0.3 mg/dL 0.1-0.5 code = 706) ALKALINE PHOSPHATASE (BEAKER) (test 63 U/L 40-150 code = 346) AST (SGOT) (BEAKER) (test code = 25 U/L 5-34 353) ALT (SGPT) (BEAKER) (test code = 46 U/L 6-55 347) Vacuum Cooker Operator ID - CAITY MBASIC METABOLIC [id number] 05:57:10 Test Item Value Reference Range Interpretation Comments SODIUM (BEAKER) 137 meq/L 136-145 (test code = 381) POTASSIUM (BEAKER) 3.8 meq/L 3.5-5.1 (test code = 379) CHLORIDE (BEAKER) 104 meq/L 98-107 (test code = 382) CO2 (BEAKER) (test 26 meq/L 22-29 code = 355) BLOOD UREA NITROGEN 9 mg/dL 7-21 (BEAKER) (test code = 354) CREATININE (BEAKER) 0.68 mg/dL 0.57-1.25 (test code = 358) GLUCOSE RANDOM 85 mg/dL 70-105 (BEAKER) (test code = 652) CALCIUM (BEAKER) 8.9 mg/dL 8.4-10.2 (test code = 697) EGFR (BEAKER) (test 100 mL/min/1.73 ESTIM ATED GFR IS code = 1092) sq m NOT ACCURATE CREATININE CLEARANCE IN PREDICTING GLOMERULAR FILTRATION RATE . ESTIMATED GFR I S NOT APPLICABLE FOR DIALYSIS PATIEN TS. Vacuum Cooker Operator ID - CAITY MSARS-CoV2/RT-PCR (Asymptomatic ONLY)2021-08-10 17:26:09 Test Item Value Reference Interpretation Comments Range SARS-COV2/RT-PCR Negative Negative The SARS-Co V-2 (test code = target nucleic 93606-3) acids are not detected in thi s specimen. Negat haris results do not preclude SARS-C oV-2 infection and should not be u sed as the sole bas is for patient management decisions. Nega tive results must be combined with clinical observations, patient history , and epidemiolog ical information. A false negative result may occu r if a specimen is improperly collected, transported or handled. This S ARS CoV-2 test is a rapid, real-carisa e RT-PCR test intended for th e qualitative detection of nucleic acid fr om SARS-CoV-2 in a nasopharyngeal swab specimen collec verito from individual s suspected of COVID-19 by the ir healthcare provider. LUPILLO (test code = This test has been LUPILLO) authorized by FDA under an EUA for use by authorized laboratories. This test is only authorized for the duration of the declaration that circumstances exist justifying the authorization of emergency use of in vitro diagnostic tests for detection and/or diagnosis of COVID-19 under Section 564(b)(1) of the Federal Food, Drug and Cosmetic Act, 21 U.S.C. 360bbb-3(b)(1), unless the authorization is terminated or revoked sooner. Fact Sheet for Healthcare Providers: https://www.[employer]/Documents/Xp ert%20Xpress%20SAR S%20CoV-2/Fact%20S heets/3023802%20S ARS-COV-2%20HEALTH CARE%20PROVIDERS%2 0FACT%20SHEET.pdf Fact Sheet for Healthcare Patients: https://www.[employer]/Documents/Xp ert%20Xpress%20SAR S%20CoV-2/Fact%20S heets/3023801%20S ARS-COV-2%20PATIEN T%20FACT%20SHEET.p df Lab Interpretation Normal (test code = 71157-5) [facility]2021-08-10 17:26:09 Test Item Value Reference Range Interpretation Comments SARS-COV2/RT-PCR Negative Negative The SARS-Co V-2 target (test code = nucleic acids a re not 6538265) detected in thi s specimen. Negative result s do not preclude SARS-C oV-2 infection and s hould not be used as the francheska e basis for patient managem ent decisions. Nega tive results must be combine d with clinical observ ations, patient history , and epidemiological information. A false negativ e result may occur if a spec imen is improperly jamel ected, transported or handled. This SARS CoV-2 test is a rapid, real-time RT-PC R test intended for th e qualitative detection of nu cleic acid from SARS-CoV-2 in a nasopharyngeal swab specimen collected from individuals suspected of CO VID-19 by their healthcar e provider. This test has been authorized by FDA under an EUA for use by authorized laboratories. This test is only authorized for the duration of the declaration that circumstances exist justifying the authorization of emergency use of in vitro diagnostic tests for detection and/or diagnosis of COVID-19 under Section 564(b)(1) of the Federal Food, Drug and Cosmetic Act, 21 U.S.C. 360bbb-3(b)(1), unless the authorization is terminated or revoked sooner. Fact Sheet for Healthcare Providers: https://www.[employer].co m/Documents/Xpert%20Xpress%20SARS%20CoV-2/Fact%20Sheets/3023802%64JROV-VZR-0%20 HEALTHCARE%20PROVIDERS%20FACT%20SHEET.pdf Fact Sheet for Healthcare Patients: https://www.[facility]/Documents/Xpert%20Xp ress%20SARS%20CoV-2/Fact%20Sheets/3023801%04GRRJ-BVI-5%20PATIENT%20FACT%20SHEET .[id number] 15:37:17 Test Item Value Reference Range Interpretation Comments LIPASE (BEAKER) (test code = 749) 15 U/L 8-78 Vacuum Cooker Operator ID - [id number] 15:37:16 Test Item Value Reference Range Interpretation Comments MAGNESIUM (BEAKER) (test code = 2.0 mg/dL 1.6-2.6 627) Vacuum Cooker Operator ID - [id number] 15:37:16 Test Item Value Reference Range Interpretation Comments PHOSPHORUS (BEAKER) (test code = 3.1 mg/dL 2.3-4.7 604) Vacuum Cooker Operator ID - [id number] 15:37:16 Test Item Value Reference Range Interpretation Comments AMYLASE (BEAKER) (test code = 349) 37 U/L 25-125 Vacuum Cooker Operator ID - BSCOMPREHENSIVE METABOLIC [id number] 15:37:15 Test Item Value Reference Range Interpretation Comments TOTAL PROTEIN 7.4 gm/dL 6.0-8.3 (BEAKER) (test code = 770) ALBUMIN (BEAKER) 4.1 g/dL 3.5-5.0 (test code = 1145) ALKALINE PHOSPHATASE 76 U/L 40-150 (BEAKER) (test code = 346) BILIRUBIN TOTAL 0.6 mg/dL 0.2-1.2 (BEAKER) (test code = 377) SODIUM (BEAKER) (test 138 meq/L 136-145 code = 381) POTASSIUM (BEAKER) [...] 9.6 mg/dL 8.4-10.2 (test code = 697) AST (SGOT) (BEAKER) 30 U/L 5-34 (test code = 353) ALT (SGPT) (BEAKER) 58 U/L 6-55 H (test code = 347) EGFR (BEAKER) (test 88 mL/min/1.73 ESTIMA VERITO GFR IS code = 1092) sq m NOT ACCURATE CREATININE CLEARANCE IN PREDICTING GLOMERULAR FILTRATION RATE . ESTIMATED GFR I S NOT APPLICABLE FOR DIALYSIS PATIEN TS. Vacuum Cooker Operator ID - BSRapid drug screen, [id number] 14:22:13 Test Item Value Reference Range Interpretation Comments Barbiturate Screen Negative Negative (test code = 73816-1) Benzodiazepine Screen Negative Negative (test code = 61467-4) Cocaine (Metab.) Negative Negative Screen (test code = 3397-7) Methadone Screen (test Negative Negative code = 91423-8) Opiate Screen (test Negative Negative code = 06615-6) Cannabinoid Screen Negative Negative (test code = 26596-4) Amph/Methamph Screen Negative Negative (test code = 71503-4) Phencyclidine Screen Negative Negative (test code = 49511-8) pH, UA (test code = 6.0 5.0-8.0 5803-2) LUPILLO (test code = LUPILLO) DRUG CUTOFF CONC.Cocaine 300 ng/mL Cannabinoid 50 ng/mLBenzodiazepine 200 ng/mLBarbiturate 200 ng/mLPhencyclidine 25 ng/mLOpiate 300 ng/mLMethadone 300 ng/mLAmphetamine/ 1000 ng/mL Methamphetamine This assay provides an unconfirmed qualitative test result for the clinical management of patients in emergency situations. Chain of custody not maintained. Some akir-cmr-lfxppqz medications, as well as adulterants, may cause inaccurate results. Clinical correlation should be applied. A more comprehensive drug screen or confirmation of a detected drug may be performed upon request.Vacuum Cooker Operator ID - BSOperator ID - [auto] Lab Interpretation Normal (test code = 49642-3) [facility] Center[facility], [id number] 14:22:13 Test Item Value Reference Range Interpretation Comments Barbiturate Screen Negative Negative (test code = 16723-1) Benzodiazepine Screen Negative Negative (test code = 53460-5) Cocaine (Metab.) Negative Negative Screen (test code = 3397-7) Methadone Screen (test Negative Negative code = 95793-0) Opiate Screen (test Negative Negative code = 67336-4) Cannabinoid Screen Negative Negative (test code = 00490-7) Amph/Methamph Screen Negative Negative (test code = 20837-8) Phencyclidine Screen Negative Negative (test code = 30897-0) pH, UA (test code = 6.0 5.0-8.0 5803-2) LUPILLO (test code = LUPILLO) DRUG CUTOFF CONC.Cocaine 300 ng/mL Cannabinoid 50 ng/mLBenzodiazepine 200 ng/mLBarbiturate 200 ng/mLPhencyclidine 25 ng/mLOpiate 300 ng/mLMethadone 300 ng/mLAmphetamine/ 1000 ng/mL Methamphetamine This assay provides an unconfirmed qualitative test result for the clinical management of patients in emergency situations. Chain of custody not maintained. Some ehqi-mkg-idcxckm medications, as well as adulterants, may cause inaccurate results. Clinical correlation should be applied. A more comprehensive drug screen or confirmation of a detected drug may be performed upon request.Vacuum Cooker Operator ID - BSOperator ID - [auto] Lab Interpretation Normal (test code = 47156-3) [facility], [id number] 14:22:13 Test Item Value Reference Range Interpretation Comments BARBITURATE URINE (BEAKER) (test Negative Negative code = 725) BENZODIAZEPINE SCREEN URINE (BEAKER) Negative Negative (test code = 726) COCAINE (METAB.) SCREEN (BEAKER) Negative Negative (test code = 1164) METHADONE SCREEN (BEAKER) (test code Negative Negative = 1436) OPIATE SCREEN URINE (BEAKER) (test Negative Negative code = 734) CANNABINOID SCREEN URINE (BEAKER) Negative Negative (test code = 727) AMPH/METHAMPH SCREEN (BEAKER) (test Negative Negative code = 1438) PHENCYCLIDINE SCREEN URINE (BEAKER) Negative Negative (test code = 608) PH UA (BEAKER) (test code = 467) 6.0 5.0-8.0 DRUG CUTOFF CONC.Cocaine 300 ng/mL Cannabinoid 50 ng/mLBenzodiazepine 200 ng/mLBarbiturate 200 ng/mLPhencyclidine 25 ng/mLOpiate 300 ng/mLMethadone 300 ng/mLAmphetamine/ 1000 ng/mL MethamphetamineThis assay provides an unconfirmed qualitative test result for the clinical management of patients in emergency situations. Chain of custody not maintained. Some alkh-jkl-zbqgmhy medications, as well as adulterants, may cause inaccurate results. Clinical correlation should be applied. A more comprehensive drug screen or confirmation of a detected drug may be performed upon request.Vacuum Cooker Operator ID - BSOperator ID - [auto] Urinalysis w/Microscopic + Reflex to [id number] 14:12:41 Test Item Value Reference Range Interpretation Comments Color, UA (test code Yellow = 5778-6) Clarity, UA (test Hazy code = 5767-9) Specific [place], UA 1.020 1.001-1.035 (test code = 5811-5) pH, UA (test code = 6.0 5.0-8.0 5803-2) Protein, UA (test 10 mg/dL Negative A code = 26529-1) Glucose, UA (test Negative Negative code = 365) Ketones, UA (test Negative Negative code = 2514-8) Bilirubin, UA (test Negative Negative code = 82983-3) Blood, UA (test code Negative Negative = 83961-7) Nitrite, UA (test Negative Negative code = 5802-4) Leukocytes, UA (test Trace Negative A code = 5799-2) Urobilinogen, UA 0.2 mg/dL 0.2-1.0 (test code = 65350-9) RBC, UA (test code = 2 See_Comment [Autom ated 84301-3) message] The system which generated this result transmit verito reference range : /HPF. The reference range was not used to interpret this result as normal/abnormal . WBC, UA (test code = 3 See_Comment [Autom ated 5821-4) message] The system which generated this result transmit verito reference range : /HPF. The reference range was not used to interpret this result as normal/abnormal . Bacteria, UA (test Rare code = 29101-3) Mucus (test code = Rare 8247-9) Squam Epithel, UA 8 See_Comment [Automate d (test code = 66187-7) messag e] The system which generated this result transmit verito reference range : /HPF. The reference range was not used to interpret this result as normal/abnormal . Crystals, Urine (test None Seen code = 92175-6) Specimen Source (test code = 2795) LUPILLO (test code = LUPILLO) Vacuum Cooker Operator ID - [auto]Vacuum Cooker Operator ID - tech Lab Interpretation Abnormal (test code = 45251-2) [facility] CenterUR[facility] W/ REFLEX URINE [id number] 14:12:41 Test Item Value Reference Range Interpretation Comments COLOR (BEAKER) (test code = 470) Yellow CLARITY (BEAKER) (test code = 469) Hazy SPECIFIC GRAVITY UA (BEAKER) (test 1.020 1.001-1.035 code = 468) PH UA (BEAKER) (test code = 467) 6.0 5.0-8.0 PROTEIN UA (BEAKER) (test code = 10 mg/dL Negative A 464) GLUCOSE UA (BEAKER) (test code = Negative Negative 365) KETONES UA (BEAKER) (test code = Negative Negative 371) BILIRUBIN UA (BEAKER) (test code = Negative Negative 462) BLOOD UA (BEAKER) (test code = 461) Negative Negative NITRITE UA (BEAKER) (test code = Negative Negative 465) LEUKOCYTE ESTERASE UA (BEAKER) Trace Negative A (test code = 466) UROBILINOGEN UA (BEAKER) (test code 0.2 mg/dL 0.2-1.0 = 463) RBC UA (BEAKER) (test code = 519) 2 /HPF WBC UA (BEAKER) (test code = 520) 3 /HPF BACTERIA (BEAKER) (test code = 517) Rare MUCUS (BEAKER) (test code = 1574) Rare SQUAMOUS EPITHELIAL (BEAKER) (test 8 /HPF code = 516) CRYSTALS, URINE (BEAKER) (test code None Seen = 1521) SOURCE(BEAKER) (test code = 2795) Vacuum Cooker Operator ID - [auto]Vacuum Cooker Operator ID - techPregnancy Screen, [id number] 14:12:36 Test Item Value Reference Range Interpretation Comments Preg Test, Ur (test code = 2112-1) Negative [facility], [id number] 14:12:36 Test Item Value Reference Range Interpretation Comments TEST URINE (BEAKER) (test Negative code = 583) PT/[id number] 14:08:52 Test Item Value Reference Range Interpretation Comments PROTIME (BEAKER) (test 13.3 seconds 11.9-14.2 code = 759) INR (BEAKER) (test 1.03 See_Comment [Automat ed code = 370) message] The sy stem which generated this result transmitted reference range : <=5.90. The reference range was not used to interpret this result as normal/abnormal . PARTIAL THROMBOPLASTIN 30.2 seconds 22.5-36.0 TIME (BEAKER) (test code = 760) RECOMMENDED COUMADIN/WARFARIN INR THERAPY RANGESSTANDARD DOSE: 2.0 - 3.0 Includes: PROPHYLAXIS for venous thrombosis, systemic embolization; TREATMENT for venous thrombosis and/or pulmonary embolus.HIGH RISK: Target INR is 2.5-3.5 for patients with mechanical heart valves.CBC W/PLT COUNT & AUTO [id number] 14:00:10 Test Item Value Reference Range Interpretation Comments WHITE BLOOD CELL COUNT (BEAKER) 6.9 K/ L 3.5-10.5 (test code = 775) RED BLOOD CELL COUNT (BEAKER) 4.77 M/ L 3.93-5.22 (test code = 761) HEMOGLOBIN (BEAKER) (test code = 14.5 GM/DL 11.2-15.7 410) HEMATOCRIT (BEAKER) (test code = 43.6 % 34.1-44.9 411) MEAN CORPUSCULAR VOLUME (BEAKER) 91.4 fL 79.4-94.8 (test code = 753) MEAN CORPUSCULAR HEMOGLOBIN 30.4 pg 25.6-32.2 (BEAKER) (test code = 751) MEAN CORPUSCULAR HEMOGLOBIN CONC 33.3 GM/DL 32.2-35.5 (BEAKER) (test code = 752) RED CELL DISTRIBUTION WIDTH 12.2 % 11.7-14.4 (BEAKER) (test code = 412) PLATELET COUNT (BEAKER) (test 247 K/CU MM 150-450 code = 756) MEAN PLATELET VOLUME (BEAKER) 10.3 fL 9.4-12.3 (test code = 754) NUCLEATED RED BLOOD CELLS 0 /100 WBC 0-0 (BEAKER) (test code = 413) NEUTROPHILS RELATIVE PERCENT 55 % (BEAKER) (test code = 429) LYMPHOCYTES RELATIVE PERCENT 33 % (BEAKER) (test code = 430) MONOCYTES RELATIVE PERCENT 9 % (BEAKER) (test code = 431) EOSINOPHILS RELATIVE PERCENT 3 % (BEAKER) (test code = 432) BASOPHILS RELATIVE PERCENT 0 % (BEAKER) (test code = 437) NEUTROPHILS ABSOLUTE COUNT 3.80 K/ L 1.56-6.13 (BEAKER) (test code = 670) LYMPHOCYTES ABSOLUTE COUNT 2.27 K/ L 1.18-3.74 (BEAKER) (test code = 414) MONOCYTES ABSOLUTE COUNT (BEAKER) 0.60 K/ L 0.24-0.36 H (test code = 415) EOSINOPHILS ABSOLUTE COUNT 0.17 K/ L 0.04-0.36 (BEAKER) (test code = 416) BASOPHILS ABSOLUTE COUNT (BEAKER) 0.02 K/ L 0.01-0.08 (test code = 417) IMMATURE GRANULOCYTES-RELATIVE 0 % 0-1 PERCENT (BEAKER) (test code = 2801) FL, [id number] 10:29:00Referring: Dr. Duran Thomas INTRA OP IMAGING Reason for exam:->ABNORMAL IMAGING [facility]ESSEN[facility] : 1990 Sex: FFluoroscopic unit utilized for a procedure performed in the OR. No interpretation was requested. Refer to the operative report for findings. Refer to PACS for patient radiation dose information.[id number] 14:08:00 Test Item Value Reference Range Interpretation Comments TRIGLYCERIDES (BEAKER) (test code = 68 mg/dL 540) TRIGLYCERIDE REFERENCE RANGELow Risk <150Borderline Risk 150-199High Risk 200-499Very High Risk >=500Operator ID - EMERSONLIPID [id number] 13:29:00 Test Item Value Reference Range Interpretation Comments TRIGLYCERIDES (BEAKER) (test code = 67 mg/dL 540) CHOLESTEROL (BEAKER) (test code = 159 mg/dL 631) HDL CHOLESTEROL (BEAKER) (test code 42 mg/dL = 976) LDL CHOLESTEROL CALCULATED (BEAKER) 104 mg/dL (test code = 633) Triglyceride Reference Range: Low Risk <150 Borderline 150-199 High Risk 200- 499 Very High Risk >=500Cholesterol Reference Range: Low Risk <200 Borderline 200-239 High Risk >240HDL Cholesterol Reference Range: Low Risk >=60 High Risk <40LDL Cholesterol Reference Range: Optimal <100 Near Optimal 100-129 Borderline 130-159 High 160-189 Very High >=190 Vacuum Cooker Operator ID - [facility] METABOLIC [id number] 07:39:00 Test Item Value Reference Range Interpretation Comments SODIUM (BEAKER) 138 meq/L 136-145 (test code = 381) POTASSIUM (BEAKER) 3.9 meq/L 3.5-5.1 (test code = 379) CHLORIDE (BEAKER) 108 meq/L 98-107 H (test code = 382) CO2 (BEAKER) (test 22 meq/L 22-29 code = 355) BLOOD UREA NITROGEN 9 mg/dL 7-21 (BEAKER) (test code = 354) CREATININE (BEAKER) 0.74 mg/dL 0.57-1.25 (test code = 358) GLUCOSE RANDOM 89 mg/dL 70-105 (BEAKER) (test code = 652) CALCIUM (BEAKER) 8.4 mg/dL 8.4-10.2 (test code = 697) EGFR (BEAKER) (test 91 mL/min/1.73 ESTIMA VERITO GFR IS code = 1092) sq m NOT ACCURATE CREATININE CLEARANCE IN PREDICTING GLOMERULAR FILTRATION RATE . ESTIMATED GFR I S NOT APPLICABLE FOR DIALYSIS PATIEN TS. Vacuum Cooker Operator ID - [id number] 07:39:00 Test Item Value Reference Range Interpretation Comments MAGNESIUM (BEAKER) (test code = 1.9 mg/dL 1.6-2.6 627) Vacuum Cooker Operator ID - ONICBC W/PLT COUNT & AUTO [id number] 04:35:00 Test Item Value Reference Range Interpretation Comments WHITE BLOOD CELL COUNT (BEAKER) 6.5 K/ L 3.5-10.5 (test code = 775) RED BLOOD CELL COUNT (BEAKER) 4.08 M/ L 3.93-5.22 (test code = 761) HEMOGLOBIN (BEAKER) (test code = 12.7 GM/DL 11.2-15.7 410) HEMATOCRIT (BEAKER) (test code = 37.6 % 34.1-44.9 411) MEAN CORPUSCULAR VOLUME (BEAKER) 92.2 fL 79.4-94.8 (test code = 753) MEAN CORPUSCULAR HEMOGLOBIN 31.1 pg 25.6-32.2 (BEAKER) (test code = 751) MEAN CORPUSCULAR HEMOGLOBIN CONC 33.8 GM/DL 32.2-35.5 (BEAKER) (test code = 752) RED CELL DISTRIBUTION WIDTH 12.4 % 11.7-14.4 (BEAKER) (test code = 412) PLATELET COUNT (BEAKER) (test 227 K/CU MM 150-450 code = 756) MEAN PLATELET VOLUME (BEAKER) 10.4 fL 9.4-12.3 (test code = 754) NUCLEATED RED BLOOD CELLS 0 /100 WBC 0-0 (BEAKER) (test code = 413) NEUTROPHILS RELATIVE PERCENT 53 % (BEAKER) (test code = 429) LYMPHOCYTES RELATIVE PERCENT 35 % (BEAKER) (test code = 430) MONOCYTES RELATIVE PERCENT 8 % (BEAKER) (test code = 431) EOSINOPHILS RELATIVE PERCENT 3 % (BEAKER) (test code = 432) BASOPHILS RELATIVE PERCENT 0 % (BEAKER) (test code = 437) NEUTROPHILS ABSOLUTE COUNT 3.46 K/ L 1.56-6.13 (BEAKER) (test code = 670) LYMPHOCYTES ABSOLUTE COUNT 2.29 K/ L 1.18-3.74 (BEAKER) (test code = 414) MONOCYTES ABSOLUTE COUNT (BEAKER) 0.52 K/ L 0.24-0.36 H (test code = 415) EOSINOPHILS ABSOLUTE COUNT 0.16 K/ L 0.04-0.36 (BEAKER) (test code = 416) BASOPHILS ABSOLUTE COUNT (BEAKER) 0.02 K/ L 0.01-0.08 (test code = 417) IMMATURE GRANULOCYTES-RELATIVE 1 % 0-1 PERCENT (BEAKER) (test code = 2801) CT, [id number] 16:11:00Referring: Dr. Duran Oropeza for exam:- >ABDOMINAL PAINReason for exam:->epigastric pain History of pancreatitisIs the patient ?->NoWhat is the patient's sedation requirement?->No SedationAGUSTIN KA[facility]Name: [facility] CORRALES : 1990 Sex: FFINAL REPORT CT of the abdomen and pelvis, with contrast Clinical History: Unlisted Reason for ExamABDOMINAL PAINepigastric pain History of pancreatitis Technique: CT of the abdomenand pelvis is performed with intravenous contrast administration. This exam was performed according to our departmental dose optimization program which includes automated exposure control, adjustment of the mA and/or kV according to patient's size and/or use of iterative reconstructive technique.AbdomenComparison Film: MRI dated August 13, 2018 Discussion: There is mild scarring or atelectasis in the lower lobes. No liver lesion is identified. Status post cholecystectomy. There is minimal pneumobilia, no significant biliary ductal dilatation. The spleen contains multiple punctate calcified granulomas. Pancreas, adrenal glands are normal. There is multifocal cortical atrophy of the left kidney. Kidneysdemonstrate no hydronephrosis, or mass. No radiopaque stone. No evidence of bowel obstruction, or abnormal bowel wall thickening. Normal appendix. In the pelvis, bladder and bladder, uterus and adnexa appear unremarkable. There are bilateral tubal occlusive devices. No ascites, free air or lymphadenopathy. Bony structures are intact. There is postsurgical change in lower ventral abdominal wall Impression: No acute process is identified in the abdomen or pelvis. Multifocal left renal cortical atrophy. Status post cholecystectomy. Minimal pneumobilia. Signed: Spencer Gutierrez Verified Date/Time: 07/21/2020 16:11:16 Reading Location: [facility] [id number] [facility] Consult Reading Room URINALYSIS W/ REFLEX URINE [id number] 13:43:00 Test Item Value Reference Range Interpretation Comments COLOR (BEAKER) (test code = 470) Yellow CLARITY (BEAKER) (test code = 469) Clear SPECIFIC GRAVITY UA (BEAKER) (test 1.029 1.001-1.035 code = 468) PH UA (BEAKER) (test code = 467) 6.5 5.0-8.0 PROTEIN UA (BEAKER) (test code = 20 mg/dL Negative A 464) GLUCOSE UA (BEAKER) (test code = Negative Negative 365) KETONES UA (BEAKER) (test code = Negative Negative 371) BILIRUBIN UA (BEAKER) (test code = Negative Negative 462) BLOOD UA (BEAKER) (test code = 461) Trace Negative A NITRITE UA (BEAKER) (test code = Negative Negative 465) LEUKOCYTE ESTERASE UA (BEAKER) Trace Negative A (test code = 466) UROBILINOGEN UA (BEAKER) (test code 0.2 mg/dL 0.2-1.0 = 463) RBC UA (BEAKER) (test code = 519) 4 /HPF WBC UA (BEAKER) (test code = 520) 4 /HPF MUCUS (BEAKER) (test code = 1574) Many SQUAMOUS EPITHELIAL (BEAKER) (test 3 /HPF code = 516) SOURCE(BEAKER) (test code = 2795) Vacuum Cooker Operator ID - [auto]Vacuum Cooker Operator ID - techHIGH SENSITIVITY TROPONIN [id number] 13:06:00 Test Item Value Reference Range Interpretation Comments HIGH SENSITIVITY < pg/ml See_Comment [Automated message] TROPONIN I (test code = The system which [id number]) generated this result transmitted ref erence range: <=17. Th e reference range was not used to interpr et this result as normal/abnormal . Vacuum Cooker Operator ID - PIAYA LThe FIRST ASSISTANT MANAGER STAT High Sensitivity Troponin-I results should be used in conjunction with other diagnostic information such as ECG, clinical observations and information, and patient symptoms to aid in the diagnosis of [place]. SCREEN, [id number] 13:03:00 Test Item Value Reference Range Interpretation Comments TEST URINE (BEAKER) (test Negative code = 583) COMPREHENSIVE METABOLIC [id number] 12:07:00 Test Item Value Reference Range Interpretation Comments TOTAL PROTEIN 7.6 gm/dL 6.0-8.3 (BEAKER) (test code = 770) ALBUMIN (BEAKER) 4.2 g/dL 3.5-5.0 (test code = 1145) ALKALINE PHOSPHATASE 64 U/L 40-150 (BEAKER) (test code = 346) BILIRUBIN TOTAL 0.7 mg/dL 0.2-1.2 (BEAKER) (test code = 377) SODIUM (BEAKER) (test 137 meq/L 136-145 code = 381) POTASSIUM (BEAKER) 4.2 meq/L 3.5-5.1 (test code = 379) CHLORIDE (BEAKER) 105 meq/L 98-107 (test code = 382) CO2 (BEAKER) (test 23 meq/L 22-29 code = 355) BLOOD UREA NITROGEN 11 mg/dL 7-21 (BEAKER) (test code = 354) CREATININE (BEAKER) 0.82 mg/dL 0.57-1.25 (test code = 358) GLUCOSE RANDOM 100 mg/dL 70-105 (BEAKER) (test code = 652) CALCIUM (BEAKER) 9.3 mg/dL 8.4-10.2 (test code = 697) AST (SGOT) (BEAKER) 20 U/L 5-34 (test code = 353) ALT (SGPT) (BEAKER) 30 U/L 6-55 (test code = 347) EGFR (BEAKER) (test 81 mL/min/1.73 ESTIMA VERITO GFR IS code = 1092) sq m NOT ACCURATE CREATININE CLEARANCE IN PREDICTING GLOMERULAR FILTRATION RATE . ESTIMATED GFR I S NOT APPLICABLE FOR DIALYSIS PATIEN TS. Vacuum Cooker Operator ID - STEPHENIE [id number] 12:07:00 Test Item Value Reference Range Interpretation Comments MAGNESIUM (BEAKER) (test code = 2.0 mg/dL 1.6-2.6 627) Vacuum Cooker Operator ID - STEPHENIE [id number] 12:07:00 Test Item Value Reference Range Interpretation Comments PHOSPHORUS (BEAKER) (test code = 2.4 mg/dL 2.3-4.7 604) Vacuum Cooker Operator ID - STEPHENIE [id number] 12:07:00 Test Item Value Reference Range Interpretation Comments LIPASE (BEAKER) (test code = 749) 14 U/L 8-78 Vacuum Cooker Operator ID - PIAYA [id number] 11:56:00 Test Item Value Reference Range Interpretation Comments PROTIME (BEAKER) (test 12.8 seconds 11.9-14.2 code = 759) INR (BEAKER) (test 0.99 See_Comment [Automat ed code = 370) message] The sy stem which generated this result transmitted reference range : <=5.90. The reference range was not used to interpret this result as normal/abnormal . PARTIAL THROMBOPLASTIN 29.6 seconds 22.5-36.0 TIME (BEAKER) (test code = 760) Effective 09/04/2018: PT Reference Range ChangeNew: 11.9-14.2 Previous: 11.7- 14.7RECOMMENDED COUMADIN/WARFARIN INR THERAPY RANGESSTANDARD DOSE: 2.0-3.0 Includes: PROPHYLAXIS for venous thrombosis, systemic embolization; TREATMENT for venous thrombosis and/or pulmonary embolus.HIGH RISK: Target INR is 2.5-3.5 for patients wiht mechanical heart valves.CBC W/PLT COUNT & AUTO [id number] 11:50:00 Test Item Value Reference Range Interpretation Comments WHITE BLOOD CELL COUNT (BEAKER) 7.1 K/ L 3.5-10.5 (test code = 775) RED BLOOD CELL COUNT (BEAKER) 4.76 M/ L 3.93-5.22 (test code = 761) HEMOGLOBIN (BEAKER) (test code = 14.8 GM/DL 11.2-15.7 410) HEMATOCRIT (BEAKER) (test code = 43.1 % 34.1-44.9 411) MEAN CORPUSCULAR VOLUME (BEAKER) 90.5 fL 79.4-94.8 (test code = 753) MEAN CORPUSCULAR HEMOGLOBIN 31.1 pg 25.6-32.2 (BEAKER) (test code = 751) MEAN CORPUSCULAR HEMOGLOBIN CONC 34.3 GM/DL 32.2-35.5 (BEAKER) (test code = 752) RED CELL DISTRIBUTION WIDTH 12.2 % 11.7-14.4 (BEAKER) (test code = 412) PLATELET COUNT (BEAKER) (test 285 K/CU MM 150-450 code = 756) MEAN PLATELET VOLUME (BEAKER) 10.0 fL 9.4-12.3 (test code = 754) NUCLEATED RED BLOOD CELLS 0 /100 WBC 0-0 (BEAKER) (test code = 413) NEUTROPHILS RELATIVE PERCENT 58 % (BEAKER) (test code = 429) LYMPHOCYTES RELATIVE PERCENT 33 % (BEAKER) (test code = 430) MONOCYTES RELATIVE PERCENT 7 % (BEAKER) (test code = 431) EOSINOPHILS RELATIVE PERCENT 2 % (BEAKER) (test code = 432) BASOPHILS RELATIVE PERCENT 0 % (BEAKER) (test code = 437) NEUTROPHILS ABSOLUTE COUNT 4.13 K/ L 1.56-6.13 (BEAKER) (test code = 670) LYMPHOCYTES ABSOLUTE COUNT 2.32 K/ L 1.18-3.74 (BEAKER) (test code = 414) MONOCYTES ABSOLUTE COUNT (BEAKER) 0.50 K/ L 0.24-0.36 H (test code = 415) EOSINOPHILS ABSOLUTE COUNT 0.12 K/ L 0.04-0.36 (BEAKER) (test code = 416) BASOPHILS ABSOLUTE COUNT (BEAKER) 0.03 K/ L 0.01-0.08 (test code = 417) IMMATURE GRANULOCYTES-RELATIVE 0 % 0-1 PERCENT (BEAKER) (test code = 2801) TRYPSIN - [id number] 23:24:49 Test Item Value Reference Range Interpretation Comments TRYPSIN, SERUM 370.2 ng/mL 180.5-885.3 INTERPRETIVE INFORMATION: (test code = TrypsinResults should be 3064-3) correlated with clinical presentation an d other diagnostic data for the diagnosis of pancreatitis. I ndividuals with acute panc reatitis have significan tly elevated trypsi n concentrations. Concentrations in those with chronic pa ncreatitis are variable an d may be below, within, or above the reference i nterval. Trypsin concent rations are not diagnos tic for carcinoma of th e pancreas. Resul ts obtained with d ifferent assay methods o r kits cannot be used interchangeably . TESTING PERFORMED AT [facility], [place] [address], [place] [address] [place]. [id number] CLIA N O. [id number] Unle ss Otherwise Indic ated, All Testing Perform ed At: [facility] [address] [place] [address] Laboratory Dire ctor: Opal Rey CLIA Number [id number] [place] o. [id number] [facility] 10:39:45 Test Item Value Reference Range Interpretation Comments AMYLASE (test code = 40 U/L 28-100 Unless Otherwise 1798-8) Indicated, All Testing Performed At: [facility] [place] [address] Laborator y Director: Chris moise M.D. CLIA Number [id number] [place]. [id number] [facility] 10:39:45 Test Item Value Reference Range Interpretation Comments LIPASE (test code = 22 U/L 13-60 Unless Otherwise 3040-3) Indicated, All Testing Performed At: [facility] [place] [address] Laborator y Director: Chris moise M.D. CLIA Number [id number] [place]. [id number] [facility] 07:06:00 Test Item Value Reference Range Interpretation Comments LIPASE (BEAKER) (test code = 749) 10 U/L 8-78 BASIC METABOLIC [id number] 07:06:00 Test Item Value Reference Range Interpretation [...] 697) EGFR (BEAKER) (test 92 mL/min/1.73 ESTIMA VERITO GFR IS code = 1092) sq m NOT ACCURATE CREATININE CLEARANCE IN PREDICTING GLOMERULAR FILTRATION RATE . ESTIMATED GFR I S NOT APPLICABLE FOR DIALYSIS PATIEN TS. HEPATIC FUNCTION [id number] 07:06:00 Test Item Value Reference Range Interpretation [...] 6-55 347) CBC W/PLT COUNT & AUTO [id number] 06:50:00 Test Item Value Reference Range Interpretation [...] (BEAKER) (test code = 2801) COMPREHENSIVE METABOLIC [id number] 23:35:00 Test Item Value Reference Range Interpretation [...] 347) EGFR (BEAKER) (test 88 mL/min/1.73 ESTIMA VERITO GFR IS code = 1092) sq m NOT ACCURATE CREATININE CLEARANCE IN PREDICTING GLOMERULAR FILTRATION RATE . ESTIMATED GFR I S NOT APPLICABLE FOR DIALYSIS PATIEN TS. [id number] 23:35:00 Test Item Value Reference Range Interpretation Comments LIPASE (BEAKER) (test code = 749) 11 U/L 8-78 PROTHROMBIN [id number] 22:55:00 Test Item Value Reference Range Interpretation Comments PROTIME (BEAKER) (test code = 13.6 seconds 11.9-14.2 759) INR (BEAKER) (test code = 370) 1.1 <=5.9 Effective 09/04/2018: PT Reference Range ChangeNew: 11.9-14.2 Previous: 11.7- 14.7RECOMMENDED COUMADIN/WARFARIN INR THERAPY RANGESSTANDARD DOSE: 2.0-3.0 Includes: PROPHYLAXIS for venous thrombosis, systemic embolization; TREATMENT for venous thrombosis and/or pulmonary embolus.HIGH RISK: Target INR is 2.5-3.5 for patients wiht mechanical heart valves.CBC W/PLT COUNT & AUTO [id number] 22:46:00 Test Item Value Reference Range Interpretation [...] 0-1 PERCENT (BEAKER) (test code = 2801) DC, [id number] 09:39:00Referring: Dr. Duran Oropeza for exam:- >acute recurrent pancreatitisFINAL REPORT History: Pancreatitis. FINDINGS: Intraprocedural fluoroscopy was provided for a total of 1 minute and 12 seconds during an ERCP. A total of four spot digital images were saved to PACS. These images show selective cannulization and injection of contrast into the commonbile duct. Balloon sweep of the duct appears to have been performed. Surgical clips indicate prior cholecystectomy. Limited evaluation is otherwise unremarkable. No radiologist was present for the proce dure. Signed: Cameron Zuniga MDReport Verified Date/Time: 09/24/2018 09:39:08 Reading Location: [address] Radiology Reading Room MR, ABDOMEN, [id number] 16:40:00 Referring: Dr. Duran Reaves SweattFINAL REPORT TECHNIQUE: MRI of the abdomen and MRCP WITHOUT intravenous contrast. 3-D volume reconstructions were obtained to evaluate the biliary ductal system. INDICATION: Cholelithiasis. COMPARISON: Ultrasound from 08/12/2018. ERCP from 05/15/2017 FINDINGS: ABSENCE OF INTRAVENOUS CONTRAST DECREASES SENSITIVITY FOR DETECTION OF FOCAL LESIONS AND VASCULAR PATHOLOGY. LOWER THORAX: Unremarkable. LIVER: No hepatic signal abnormality. No focal hepatic lesions. BILIARY: Prior cholecystectomy. No biliary ductal dilatation or filling defect. [...] normal in caliber without filling defects. Signed: Danielle Mcclain MDReport Verified Date/Time: 08/13/2018 16:40:14 Reading Location: [facility] C013Y CT Body Reading Room BASI METABOLIC [id number] 07:09:00 Test Item Value Reference Range Interpretation [...] 697) EGFR (BEAKER) (test 92 mL/min/1.73 ESTIMA VERITO GFR IS code = 1092) sq m NOT ACCURATE CREATININE CLEARANCE IN PREDICTING GLOMERULAR FILTRATION RATE . ESTIMATED GFR I S NOT APPLICABLE FOR DIALYSIS PATIEN TS. CBC W/PLT COUNT & AUTO [id number] 06:59:00 Test Item Value Reference Range Interpretation [...] (BEAKER) (test code = 2801) U/S, ABDOMINAL, [id number] 14:44:00Referring: Dr. Duran Reaves SweattAbdomen limited area? Add comment if clarification is needed.->Selena erReason for exam:->ABDOMINAL PAINFINAL REPORT Right Upper Quadrant Ultrasound Clinical Diagnosis: Abdomen pain Comparison: No comparison Technique: Multiple transaxial and longitudinal images were obtained throughthe right upper quadrant with real time ultrasonography. Five mHz transducer was utilized. 48 imageswere submitted for interpretation. Report:Liver: The liver measures 14.2 cm in the right midaxillaryline. There are no focal masses. The echogenicity is within normal limits.Gallbladder: The gallbladder surgically absentBiliary tree: There is no evidence of intra or extra hepatic biliary ductal dilatation. The common bile duct measures two mm.Portal vein: The portal vein measures 12 mm. Ascites: NegativePleural Effusion: NegativeRight kidney: The right kidney measures 10.3 cm in length without evidence of hydronephrosis.Aorta and IVC: Midline abdominal structures and not well visualized. Maximum transverse dimension is 1.9 cm proximally Impression:Status post cholecystectomy. Otherwise unremarkable right upper quadrant ultrasound Signed: Glo Herrera Verified Date/Time: 08/12/2018 14:44:03 Reading Location: [address] Ultrasound Reading Room [id number] 10:24:00 Test Item Value Reference Range Interpretation Comments LIPASE (BEAKER) (test code = 749) 11 U/L 8-78 BASIC METABOLIC [id number] 10:24:00 Test Item Value Reference Range Interpretation [...] 697) EGFR (BEAKER) (test 81 mL/min/1.73 ESTIMA VERITO GFR IS code = 1092) sq m NOT ACCURATE CREATININE CLEARANCE IN PREDICTING GLOMERULAR FILTRATION RATE . ESTIMATED GFR I S NOT APPLICABLE FOR DIALYSIS PATIEN TS. HEPATIC FUNCTION [id number] 10:24:00 Test Item Value Reference Range Interpretation [...] 6-55 347) CBC W/PLT COUNT & AUTO [id number] 10:04:00 Test Item Value Reference Range Interpretation [...] code = 2801) URINALYSIS W/ REFLEX URINE [id number] 10:00:00 Test Item Value Reference Range Interpretation [...] Many SOURCE(BEAKER) (test code = 2795) SCREEN, [id number] 09:53:00 Test Item Value Reference Range Interpretation Comments TEST URINE (BEAKER) (test Negative code = 583) [id number] 10:51:00 Test Item Value Reference Range Interpretation Comments LIPASE (BEAKER) (test code = 749) 16 U/L 8-78 COMPREHENSIVE METABOLIC [id number] 10:51:00 Test Item Value Reference Range Interpretation [...] S NOT APPLICABLE FOR DIALYSIS PATIEN TS. [id number] 19:35:00 Test Item Value Reference Range Interpretation Comments LIPASE (BEAKER) (test code = 749) 233 U/L 8-78 H COMPREHENSIVE METABOLIC [id number] 19:35:00 Test Item Value Reference Range Interpretation [...] 347) EGFR (BEAKER) (test 90 mL/min/1.73 ESTIMA VERITO GFR IS code = 1092) sq m NOT ACCURATE CREATININE CLEARANCE IN PREDICTING GLOMERULAR FILTRATION RATE . ESTIMATED GFR I S NOT APPLICABLE FOR DIALYSIS PATIEN TS. DC, [id number] 15:44:00Referring: Dr. Duran Thomas INTRA OP IMAGING [...] Fluoroscopy time: 23 seconds. Five images. Signed: Femi Woodsonepchildren[facility] Verified Date/Time: 05/15/2017 15:44:29 Reading Location: [address] Radiology Reading Room ANTI-NUCLEAR ANTIBODY (ARIC) 2017-03-28 10:37:00 Test Item Value Reference Range Interpretation Comments ANTI-NUCLEAR ANTIBODY (ARIC) (BEAKER) Negative Negative (test code = 418) HEPATITIS B SURFACE [id number] 18:33:00 Test Item Value Reference Range Interpretation Comments HEPATITIS B SURFACE ANTIBODY 678.3 mIU/mL <8.0 H (BEAKER) (test code = 647) HEPATITIS A ANTIBODY, [id number] 18:33:00 Test Item Value Reference Range Interpretation Comments HEPATITIS A IGG ANTIBODY (BEAKER) Nonreactive Nonreactive (test code = 2797) IMMUNOGLOBULIN G (IGG)2017-03-27 18:04:00 Test Item Value Reference Range Interpretation Comments IMMUNOGLOBULIN G (IGG) (BEAKER) 1397 mg/dL 540-1822 (test code = 427) HEPATIC FUNCTION [id number] 17:26:00 Test Item Value Reference Range Interpretation [...] = 43 U/L 6-55 347) BASIC METABOLIC [id number] 17:26:00 Test Item Value Reference Range Interpretation [...] 697) EGFR (BEAKER) (test 89 mL/min/1.73 ESTIMA VERITO GFR IS code = 1092) sq m NOT ACCURATE CREATININE CLEARANCE IN PREDICTING GLOMERULAR FILTRATION RATE . ESTIMATED GFR I S NOT APPLICABLE FOR DIALYSIS PATIEN TS. PROTHROMBIN [id number] 17:10:00 Test Item Value Reference Range Interpretation Comments PROTIME (BEAKER) (test code = 12.2 seconds 11.7-14.7 759) INR (BEAKER) (test code = 370) 0.9 <=5.9 RECOMMENDED COUMADIN/WARFARIN INR THERAPY RANGESSTANDARD DOSE: 2.0 - 3.0 Includes: PROPHYLAXIS for venous thrombosis, systemic embolization; TREATMENT for venous thrombosis and/or pulmonary embolus.HIGH RISK: Target INR is 2.5-3.5 for patients with mechanical heart valves.CBC W/PLT COUNT & AUTO [id number] 17:01:00 Test Item Value Reference Range Interpretation [...]
[2022-04-17 23:50] LABS: Urine Blood Negative (Negative); Urine Glucose Negative (Negative); Urine Protein Negative (Negative); Urine Specific Gravity 1.015 (1.005-1.030)
[2022-04-18] MEDS ORDERED: ONDANSETRON 4 MG/2 ML VIAL ONE (00:06)
[2022-04-18] MEDS ORDERED: FAMOTIDINE 20 MG/2 ML VIAL IV ONE (00:07)
[2022-04-18] MEDS ORDERED: NA CHLORIDE 0.9% 1,000 ML ONE (00:07)
[2022-04-18 00:11] LABS: Absolute Lymphocytes (CBC) 3.2 K/uL (0.7-4.9); Hematocrit 43.1 % (36.0-45.0); Lymphocytes % 42.2 % (15.3-44.8); MCV 89.8 fL (80-100); MPV 8.5 fL (7.6-11.3)
[2022-04-18 00:15] LABS: Urine Bacteria None Seen /HPF (<20); Urine RBC None Seen /HPF (None Seen)
[2022-04-18 00:24] LABS: Albumin 4.1 g/dL (3.4-5.0); Bilirubin Total 0.4 mg/dL (0.2-1.0); Potassium 3.6 mmol/L (3.5-5.1); Protein, Total 8.2 g/dL (6.4-8.2)
[2022-04-18 00:34] LABS: Urine Specific Gravity/Preg 1.015 (1.005-1.030)
[2022-04-18] MEDS ORDERED: MORPHINE 4 MG/ML SYR ONE (01:22)
--- NOTE | 2022-04-18 02:12 | EDPHYS ---
Physician Documentation [facility] Name: Rubi Farfan Age: 32 yrs Sex: Female : 1990 Arrival Date: 04/17/2022 Time: 23:21 Bed 3 Private MD: ED Physician Christopher Jasso HPI: 04/18 00:00 This 32 yrs old Female presents to ER via Ambulatory with complaints of Constipation, cp Abdominal Pain. 00:00 The patient presents with abdominal pain. cp 00:00 Onset: The symptoms/episode began/occurred 2 month(s) ago. Associated signs and cp symptoms: Pertinent positives: constipation. The symptoms are described as waxing/waning. Severity of pain: in the emergency department the pain is unchanged despite home interventions. 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 - Social history:: Smoking status: Patient denies any tobacco usage or history of. ROS: 04/18 00:05 Constitutional: Negative for body aches, chills, fever, poor PO intake. cp 00:05 Eyes: Negative for injury, pain, redness, and discharge. cp 00:05 ENT: Negative for drainage from ear(s), ear pain, sore throat, difficulty swallowing, difficulty handling secretions. 00:05 Cardiovascular: Negative for chest pain, palpitations. 00:05 Respiratory: Negative for cough, shortness of breath, wheezing. 00:05 Abdomen/GI: Positive for abdominal pain, constipation, Negative for vomiting, diarrhea, anorexia, black/tarry stool, rectal bleeding. 00:05 Back: Negative for pain at rest, pain with movement. 00:05 : Negative for urinary symptoms, vaginal bleeding, vaginal discharge. 00:05 Neuro: Negative for altered mental status, dizziness, headache, weakness. 00:05 All other systems are negative. Exam: 00:10 Constitutional: The patient appears in no acute distress, alert, awake, non-toxic, well cp developed, well nourished, uncomfortable. 00:10 Head/Face: Normocephalic, atraumatic. cp 00:10 Eyes: Periorbital structures: appear normal, Conjunctiva: normal, no exudate, no injection, Sclera: no appreciated abnormality, Lids and lashes: appear normal, bilaterally. 00:10 ENT: External ear(s): are unremarkable, Nose: is normal, Mouth: Lips: moist, Oral mucosa: moist, Posterior pharynx: Airway: no evidence of obstruction, patent. 00:10 Chest/axilla: Inspection: normal. 00:10 Cardiovascular: Rate: tachycardic, Rhythm: regular. 00:10 Respiratory: the patient does not display signs of respiratory distress, Respirations: normal, no use of accessory muscles, no retractions, labored breathing, is not present, Breath sounds: are clear throughout, no decreased breath sounds, no stridor, no wheezing. 00:10 Abdomen/GI: Inspection: abdomen appears normal, Bowel sounds: active, all quadrants, Palpation: soft, in all quadrants, moderate abdominal tenderness, in all quadrants, rebound tenderness, is not appreciated, voluntary guarding, is elicited in all quadrants. 00:10 Back: CVA tenderness, is absent. 00:10 Neuro: Orientation: to person, place \T\ time. Mentation: is normal, Motor: moves all fours, strength is normal. Vital Signs: 04/17 23:46 BP 132 / 93; Pulse 112; Resp 18; Temp 97.8; Pulse Ox 98% on R/A; Weight 78.02 kg; tw5 Height 5 ft. 7 in. (170.18 cm); Pain 9/10; 04/18 01:26 BP 130 / 87; Pulse 86; Resp 19; Pulse Ox 97% ; Pain 9/10; jj7 01:56 BP 114 / 77; Pulse 75; Resp 18 S; Pulse Ox 97% on R/A; as6 04/17 23:46 Body Mass Index 26.94 (78.02 kg, 170.18 cm) tw5 MDM: 04/17 23:51 Patient medically screened. cp 04/18 00:00 Differential diagnosis: appendicitis, bowel obstruction, cholecystitis, Cholelithiasis, cp non-specific abd pain, pancreatitis, Pyelonephritis, Ureterolithiasis, urinary tract infection. 02:10 Data reviewed: vital signs, nurses notes, lab test result(s), radiologic studies, CT cp scan. 02:10 I considered the following discharge prescriptions or medication management in the emergency department I discussed and recommended Over The Counter medications, Pain Medications: At this time, prescription pain medications are not recommended, Medications were administered in the Emergency Department. See MAR. 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 Response to treatment: patient is well hydrated. pain improved. Will discharge to home for continued monitoring. Special discussion: Based on the patient's Hx, exam, and Dx evaluation, there is no indication for emergent surgery or inpatient Tx. It is understood by the patient/guardian that if the Sx's persist or worsen they need to return immediately for re-evaluation. 04/17 23:51 Order name: Urine Dipstick-Ancillary; Complete Time: 01: EDMS 04/17 23:52 Order name: Urine --Ancillary (enter results); Complete Time: 01: [facility] 04/17 23:52 Order name: Urine Microscopic Only; Complete Time: : [facility] 04/17 23:56 Order name: CBC with Diff; Complete Time: 01: 04/18 01:02 Interpretation: Reviewed. 04/17 23:56 Order name: CMP; Complete Time: 01: 04/18 01:02 Interpretation: Normal except: CL 108; GLUC 108; GFR 88; A/G 1.0; GLOB 4.1. 04/17 23:56 Order name: Lipase; Complete Time: 01: 04/17 23:52 Order name: Urine Dipstick-Ancillary (obtain specimen); Complete Time: 23:52 2 04/17 23:52 Order name: Urine Test (obtain specimen); Complete Time: 23:52 [facility] 04/17 23:56 Order name: IV Saline Lock; Complete Time: 00:00 cp 04/18 00:10 Order name: CT Abd/Pelvis - IV Contrast Only 04/17 23:56 Order name: Labs collected and sent; Complete Time: 00:00 Administered Medications: 00:10 Drug: NS 0.9% 1000 ml Route: IV; Rate: 1 bolus; Site: right antecubital; tw5 02:20 Follow up: Response: No adverse reaction; IV Status: Completed infusion; IV Intake: as6 1000ml 00:10 Drug: Pepcid (famotidine) 20 mg Route: IVP; Site: right antecubital; tw5 02:20 Follow up: Response: No adverse reaction as6 00:10 Drug: Zofran (Ondansetron) 4 mg Route: IVP; Site: right antecubital; tw5 02:20 Follow up: Response: No adverse reaction as6 01:24 Drug: morphine 4 mg Route: IVP; Infused Over: 4 mins; Site: right antecubital; jj7 02:20 Follow up: Response: No adverse reaction as6 Disposition: 03:40 Co-signature as Attending Physician, Christopher Jasso MD I reviewed the patient's care rt provided by the Advanced Practice Provider and agree with the diagnosis and treatment plan. Disposition Summary: 04/18/22 02:11 Discharge Ordered Location: Home cp Problem: an ongoing problem cp Symptoms: have improved cp Condition: Stable cp Diagnosis - Abdominal pain, unspecified cp - Constipation, unspecified cp Followup: cp - With: Private Physician - When: 1 - 2 days - Reason: Recheck today's complaints Discharge Instructions: - Discharge Summary Sheet cp - Abdominal Pain, Adult cp - Constipation, Adult cp Forms: - Medication Reconciliation Form cp - Thank You Letter cp - Antibiotic Education cp - Prescription Opioid Use cp Prescriptions: - Zofran 4 mg Oral Tablet - take 1 tablet by ORAL route every 12 hours As needed; 20 tablet; Refills: 0, cp Product Selection Permitted - dicyclomine 20 mg Oral Tablet - take 1 tablet by ORAL route 4 times per day; 20 tablet; Refills: 0, Product cp Selection Permitted Signatures: Dispatcher [employer] EDKY Christian Terry PA PA cp Archana Chen mw2 Magy Weems tw5 Malia Anders RN RN jj7 Christopher Jasso MD MD rt George Prabhakar RN as6 Corrections: (The following items were deleted from the chart) 04/17 23:50 23:49 PMHx: autoimmune hepititis; tw5
--- NOTE | 2022-04-18 02:12 | ER ---
Nurse's Notes [facility] Name: Rubi Farfan Age: 32 yrs Sex: Female : 1990 Arrival Date: 04/17/2022 Time: 23:21 Bed 3 Private MD: Diagnosis: Abdominal pain, unspecified;Constipation, unspecified Presentation: 04/17 23:46 Chief complaint: Patient states: "I had a procedure after having pancreatitis. I have tw5 not had a bowel moment since . My PCP gave me lactose and true zee. My stomach now feels really tight, I am gassy, but I am still not making a movement. ". Coronavirus screen: Vaccine status: Patient reports receiving the 2nd dose of the covid vaccine. Moderna. Ebola Screen: Patient negative for fever greater than or equal to 101.5 degrees Fahrenheit, and additional compatible Ebola Virus Disease symptoms Patient denies exposure to infectious person. Patient denies travel to an Ebola-affected area in the 21 days before illness onset. Initial Sepsis Screen: Does the patient meet any 2 criteria? HR > 90 bpm. Does the patient have a suspected source of infection? Yes: Acute abdominal pain. Risk Assessment: Do you want to hurt yourself or someone else? Patient reports no desire to harm self or others. Onset of symptoms is unknown. 23:46 Acuity: HUAN 3 tw5 23:46 Method Of Arrival: Ambulatory tw5 Triage Assessment: 23:49 General: Appears uncomfortable, Behavior is calm, cooperative, appropriate for age. tw5 Pain: Complains of pain in abdomen Pain currently is 9 out of 10 on a pain scale. GI: Reports cramping. 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 - Social history:: Smoking status: Patient denies any tobacco usage or history of. Screenin/10 01:24 [facility] ED Fall Risk Assessment (Adult) History of falling in the last 3 months, jj7 including since admission No falls in past 3 months (0 pts) Confusion or Disorientation No (0 pts) Intoxicated or Sedated Yes (3 pts) Impaired Gait No (0 pts) Mobility Assist Device Used No (0 pt) Altered Elimination No (0 pt) Score/Fall Risk Level 0 - 2 = Low Risk. Abuse screen: Denies threats or abuse. Nutritional screening: No deficits noted. Tuberculosis screening: No symptoms or risk factors identified. Assessment: 04/17 23:53 General: "Dr. Pineda was the one that did the procedure.". tw04/18 01:24 Reassessment: ASSUMED CARE OF PT. PT SITTING UP IN BED. NO DISTRESS NOTED. VS STABLE. jj7 ORDERED MED GIVEN PT TOLERATED WELL. GI: Abd is soft Abdomen is tender to palpation X 4 quads. Reports lower abdominal pain, upper abdominal pain, constipation. 01:56 General: pt reports pain is returning . as6 Vital Signs: 04/17 23:46 BP 132 / 93; Pulse 112; Resp 18; Temp 97.8; Pulse Ox 98% on R/A; Weight 78.02 kg; tw5 Height 5 ft. 7 in. (170.18 cm); Pain 9/10; 04/18 01:26 BP 130 / 87; Pulse 86; Resp 19; Pulse Ox 97% ; Pain 9/10; jj7 01:56 BP 114 / 77; Pulse 75; Resp 18 S; Pulse Ox 97% on R/A; as6 04/17 23:46 Body Mass Index 26.94 (78.02 kg, 170.18 cm) tw5 ED Course: 04/17 23:21 Patient arrived in ED. ja2 23:27 Christian Terry PA is PHCP. cp 23:27 Christopher Jasso MD is Attending Physician. cp 23:49 Triage completed. tw5 23:49 Arm band placed on. 04/18 00:00 CBC with Diff Sent. 00:00 Urine Microscopic Only Sent. 00:00 Urine --Ancillary (enter results) Sent. 00:00 Lipase Sent. 00:00 CMP Sent. 00:00 Initial lab(s) drawn, by nh, sent to lab. Inserted saline lock: 20 gauge in right tw5 antecubital area, using aseptic technique. Blood collected. : CT Abd/Pelvis - IV Contrast Only In Process Unspecified. EDMS 01:13 George Prabhakar, RN is Primary Nurse. as6 01:24 Patient has correct armband on for positive identification. Call light in reach. Side jj7 rails up X 1. Warm blanket given. 02:25 No provider procedures requiring assistance completed. IV discontinued, intact, as6 bleeding controlled, No redness/swelling at site. Pressure dressing applied. Administered Medications: 00:10 Drug: NS 0.9% 1000 ml Route: IV; Rate: 1 bolus; Site: right antecubital; tw5 02:20 Follow up: Response: No adverse reaction; IV Status: Completed infusion; IV Intake: as6 1000ml 00:10 Drug: Pepcid (famotidine) 20 mg Route: IVP; Site: right antecubital; tw5 02:20 Follow up: Response: No adverse reaction as6 00:10 Drug: Zofran (Ondansetron) 4 mg Route: IVP; Site: right antecubital; tw5 02:20 Follow up: Response: No adverse reaction as6 01:24 Drug: morphine 4 mg Route: IVP; Infused Over: 4 mins; Site: right antecubital; jj7 02:20 Follow up: Response: No adverse reaction as6 Medication: 01:24 VIS not applicable for this client. jj7 Intake: 02:20 IV: 1000ml; Total: 1000ml. as6 Outcome: 02:11 Discharge ordered by MD. cp 02:25 Discharged to home ambulatory. as6 02:25 Condition: stable 02:25 Discharge instructions given to patient, Instructed on discharge instructions, follow up and referral plans. medication usage, Demonstrated understanding of instructions, follow-up care, medications, Prescriptions given X 2. 02:26 Patient left the ED. as6 Signatures: Dispatcher [employer] EDMS Christian Terry PA PA cp Alexander, Jessica ja2 Wood, Tiffany tw5 George Prabhakar, YULIA RN as6 Malia Anders RN RN jj7 Corrections: (The following items were deleted from the chart) 04/17 23:50 23:49 PMHx: autoimmune hepititis; tw5 tw5
[2022-04-18 02:51] VITALS: TEMP 97.8
[2022-04-18 02:52] VITALS: O2SAT 97
[2022-04-18 02:53] VITALS: BP 114/77
--- NOTE | 2022-04-18 14:18 | RAD REPORT ---
EXAM DESCRIPTION: CT - Abdomen Pelvis W Contrast - 04/18/2022 7:18 am CLINICAL HISTORY: The patient is 32 years old and is Female; abdominal pain, constipation TECHNIQUE: Axial computed tomography images of the abdomen and pelvis with intravenous contrast. S agittal and coronal reformatted images were created and reviewed. This CT exam was performed using one or more of the following dose reduction techniques: automated exposure control, adjustment of t he mA and/or kV according to patient size, and/or use of iterative reconstruction technique. COMPARISON: No relevant prior studies available. FINDINGS: Lung bases: Unremarkable. No mass. No consolidation. ABDOMEN: Liver: Unremarkable. No mass. Gallbladder and bile ducts: Gallbladder is surgically absent. Mild pneumobilia. No ductal dilation. Pancreas: Unremarkable. No mass. No ductal dilation. Spleen: Unremarkable. No splenomegaly. Adrenals: Unremarkable. No mass. Kidneys and ureters: Scarring and atrophy in the left kidney. No hydronephrosis. Stomach and bowel: Stool throughout colon. Mildly prominent small bowel in the left upper quadrant. No obstruction. No mucosal thickening. PELVIS: Appendix: No findings to suggest acute appendicitis. Bladder: Unremarkable. Reproductive: Curvilinear metallic densities in the adnexal regions bilaterally. Correlate with procedural history. ABDOMEN and PELVIS: Intraperitoneal space: Unremarkable. No free air. No significant fluid collection. Bones/joints: Nonspecific 7 mm sclerotic lesion in the right ilium. No acute fracture. No dislocation. Soft tissues: Unremarkable. Vasculature: Unremarkable. No abdominal aortic aneurysm. Lymph nodes: Unremarkable. No enlarged lymph nodes. IMPRESSION: No acute finding in the abdomen/pelvis. Electronically signed by: Ron Butterfield MD 04/18/2022 1:38 AM [facility] Due to temporary technical issues with the PACS/Fluency reporting system, reports are being signed by the in house radiologists without review as a courtesy to insure prompt reporting. The interpreting radiologist is fully responsible for the content of the report.
== END 2022-04-18 02:26 | disposition home or self-care (01) ==
LOC: ER 23:16
DX: K59.00 Constipation, unspecified (principal); I10 Essential (primary) hypertension; E05.90 Thyrotoxicosis, unspecified without thyrotoxic crisis or storm; Z87.442 Personal history of urinary calculi
CPT/HCPCS: 85025; 36415; 81025; 83690; 80053; 74177; Q9967; J7030; J2405; 81003; 81015; 96361; 96374; 96375; 99284